=== PATIENT | male | born 1935 | race Caucasian/White ===

== ENCOUNTER 2016-08-26 19:26 | Inpatient (IN) | payer MEDICARE, OTHER ==
[~2016-08-26] VITALS: Ht 182.9 cm; Wt 91.8 kg
[~2016-08-26 19:26] MED LIST: ASPI-84; GEMF600T3; LSRT50T; PRV20T
[2016-08-26] MEDS ORDERED: HYDR25TA4 PO (19:40)
[2016-08-26] MEDS ORDERED: DOXA1TAB2 (19:40)
[2016-08-26] MEDS ORDERED: EZET10TA5 PO (19:40)
[2016-08-26] MEDS ORDERED: AMLO5TAB2 PO (19:40)
[2016-08-26] MEDS ORDERED: LEVO75TA6 PO (19:40)
[2016-08-26 19:48] LABS: BILIRUBIN,URINE NEGATIVE (NEGATIVE); KETONES,URINE NEGATIVE (NEGATIVE); LEUKOCYTE ESTERASE ,URINE NEGATIVE (NEGATIVE); NITRITE,URINE NEGATIVE (NEGATIVE); PH,URINE 6 (5-9); PROTEIN,URINE NEGATIVE (NEGATIVE); UROBILINOGEN,URINE NORMAL (NORMAL)
[2016-08-26 19:55] LABS: BASOPHILS % (AUTO) 0 % (0-10); EOSINOPHILS # (AUTO) 0.1 10^3/uL (0.0-0.3); EOSINOPHILS % (AUTO) 1 % (0-10); LYMPHOCYTES # (AUTO) 1.1 X 10^3 (1.0-4.0); LYMPHOCYTES % (AUTO) 6 % (12-44); MEAN CORPUSCULAR HEMOGLOBIN 18 PG (25-34); MEAN CORPUSCULAR HGB CONC 28 G/DL (32-36); MEAN CORPUSCULAR VOLUME 62 FL (80-99); MEAN PLATELET VOLUME 9.8 FL (7.4-10.4); MONOCYTES % (AUTO) 6 % (0-12); NEUTROPHILS # (AUTO) 15.1 X 10^3 (1.8-7.8); NEUTROPHILS % (AUTO) 87 % (42-75); PLATELET COUNT 260 10^3/uL (130-400); RED BLOOD COUNT 4.34 10^6/uL (4.35-5.85); RED CELL DISTRIBUTION WIDTH 19.2 % (10.0-14.5); WHITE BLOOD COUNT 17.3 10^3/uL (4.3-11.0)
[2016-08-26] MEDS ORDERED: NS 1000 ML IV BAG IV ONE (20:00)
[2016-08-26 20:05] LABS: PROTHROMBIN TIME PATIENT 13.3 SEC (12.2-14.7)
[2016-08-26 20:19] LABS: ALBUMIN 3.9 G/DL (3.2-4.5); BILIRUBIN,TOTAL 0.4 MG/DL (0.1-1.0); CREATININE SERUM 1.35 MG/DL (0.60-1.30); TOTAL PROTEIN 7.1 G/DL (6.4-8.2)
[2016-08-26 20:31] LABS: BAND NEUTROPHILS 0 %; BASOPHILS % (MANUAL) 0 %; EOSINOPHILS % (MANUAL) 2 %; HYPOCHROMASIA MARKED; LYMPHOCYTES % (MANUAL) 7 %; NEUTROPHILS % (MANUAL) 86 %
[2016-08-26 20:32] LABS: ANISOCYTOSIS MARKED; MICROCYTOSIS MARKED
[2016-08-26] MEDS ORDERED: IOHEXOL 350 MG/ML 100 ML (OMNIPAQUE 350) VIAL IV ONE (20:45)
[2016-08-26] MEDS ORDERED: NS 100 ML (IVPB) BAG IV ONE (20:45)
--- NOTE | 2016-08-26 20:53 | ED Abdominal Pain ---
General Chief Complaint: Abdominal/GI Problems Stated Complaint: CHILLS, AB PAIN Nursing Triage Note: CHILLS, ABD PAIN X2 HRS Sepsis Screen: No Definite Risk History of Present Illness Time Seen By Provider: 20:00 Initial Comments Patient complains of diffuse abdominal pain and cramping for the past several hours. He also has had shaking chills. He denies fevers. He denies dysuria. 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 Allergies and Home Medications Allergies Coded Allergies: No Known Drug Allergies (Unverified , 05/27/09) Home Medications Amlodipine Besylate 5 Mg Tablet, #30 (Reported) Aspirin 81 Mg Tablet., (Reported) Doxazosin Mesylate 1 Mg Tablet, #90 (Reported) Ezetimibe 10 Mg Tablet, #90 (Reported) Hydrochlorothiazide 25 Mg Tablet, #30 (Reported) Levothyroxine Sodium 75 Mcg Tablet, #90 (Reported) Losartan Potassium 50 Mg Tab, (Reported) Pravastatin Sodium 20 Mg Tablet, (Reported) Review of Systems Constitutional: chills Respiratory: No Symptoms Reported Cardiovascular: No Symptoms Reported Gastrointestinal: Abdominal Pain Musculoskeletal: no symptoms reported Skin: no symptoms reported All Other Systems Reviewed Negative Unless Noted: Yes Past Mdeexdy-Brcxon-Liskib Hx Patient Social History Alcohol Use: Denies Use Recreational Drug Use: No Smoking Status: Never a Smoker 2nd Hand Smoke Exposure: No Recent Foreign Travel: No Contact w/Someone Who Travel: No Recent Infectious Disease Expo: No Recent Hopitalizations: No Immunizations Up To Date Tetanus Booster (TDap): Unknown Seasonal Allergies Seasonal Allergies: No Respiratory Hx Respiratory Disorders: No Cardiovascular Hx Cardiac Disorders: Yes Cardiac Disorders: Coronary Artery Disease, Heart Attack, Hypertension Neurological Hx Neurological Disorders: No Reproductive System Hx Reproductive Disorders: No Genitourinary Hx Genitourinary Disorders: No Gastrointestinal Hx Gastrointestinal Disorders: Yes Gastrointestinal Disorders: Gall Bladder Disease Musculoskeletal Hx Musculoskeletal Disorders: No Endocrine Hx Endocrine Disorders: Yes HEENT HX ENT Disorders: No Psychosocial Hx Psychiatric Problems: No Blood Transfusions Hx Blood Disorders: No Reviewed Nursing Assessment Reviewed/Agree w Nursing PMH: Yes Physical Exam Vital Signs VS - Last 72 Hours, by Label 08/26/16 19:40 Temp 99.8 Pulse 74 Resp 16 B/P (MAP) 162/60 Pulse Ox 96 O2 Delivery Room Air Capillary Refill : Less Than 3 Seconds General Appearance: WD/WN, no apparent distress HEENT: PERRL/EOMI, pharynx normal Neck: supple Respiratory: lungs clear, normal breath sounds Cardiovascular: regular rate, rhythm, no edema Gastrointestinal: No distended, No guarding, No rebound, tenderness (tender throughout abdomen especially in the upper abdomen.) Extremities: normal inspection Neurologic/Psychiatric: alert, normal mood/affect Skin: normal color, warm/dry Focused Exam Lactic Acid Level Laboratory Tests Test 08/26/16 21:30 Progress/Results/Core Measures Results/Orders Lab Results Laboratory Tests Test 08/26/16 19:35 08/26/16 19:50 08/26/16 21:30 Range/Units Urine Color YELLOW Urine Clarity CLEAR Urine pH 6 5-9 Urine Specific [place] 1.015 L 1.016-1.022 Urine Protein NEGATIVE NEGATIVE Urine Glucose (UA) NEGATIVE NEGATIVE Urine Ketones NEGATIVE NEGATIVE Urine Nitrite NEGATIVE NEGATIVE Urine Bilirubin NEGATIVE NEGATIVE Urine Urobilinogen NORMAL NORMAL MG/DL Urine Leukocyte Esterase NEGATIVE NEGATIVE Urine RBC (Auto) NEGATIVE NEGATIVE Urine RBC NONE /HPF Urine WBC NONE /HPF Urine Squamous Epithelial Cells NONE /HPF Urine Crystals NONE /LPF Urine Bacteria NEGATIVE /HPF Urine Casts PRESENT /LPF Urine Hyaline Casts 5-10 H /LPF Urine Mucus NEGATIVE /LPF Urine Culture Indicated NO White Blood Count 17.3 H 4.3-11.0 10^3/uL Red Blood Count 4.34 L 4.35-5.85 10^6/uL Hemoglobin 7.7 L 13.3-17.7 G/DL Hematocrit 27 L 40-54 % Mean Corpuscular Volume 62 L 80-99 FL Mean Corpuscular Hemoglobin 18 L 25-34 PG Mean Corpuscular Hemoglobin Concent 28 L 32-36 G/DL Red Cell Distribution Width 19.2 H 10.0-14.5 % Platelet Count 260 130-400 10^3/uL Mean Platelet Volume 9.8 7.4-10.4 FL Neutrophils (%) (Auto) 87 H 42-75 % Lymphocytes (%) (Auto) 6 L 12-44 % Monocytes (%) (Auto) 6 0-12 % Eosinophils (%) (Auto) 1 0-10 % Basophils (%) (Auto) 0 0-10 % Neutrophils # (Auto) 15.1 H 1.8-7.8 X 10^3 Lymphocytes # (Auto) 1.1 1.0-4.0 X 10^3 Monocytes # (Auto) 1.0 0.0-1.0 X 10^3 Eosinophils # (Auto) 0.1 0.0-0.3 10^3/uL Basophils # (Auto) 0.0 0.0-0.1 10^3/uL Neutrophils % (Manual) 86 % Lymphocytes % (Manual) 7 % Monocytes % (Manual) 5 % Eosinophils % (Manual) 2 % Basophils % (Manual) 0 % Band Neutrophils 0 % Hypochromasia MARKED Anisocytosis MARKED Microcytosis MARKED Prothrombin Time 13.3 12.2-14.7 SEC INR Comment 1.0 0.8-1.4 Activated Partial Thromboplast Time 30 24-35 SEC Sodium Level 138 135-145 MMOL/L Potassium Level 4.0 3.6-5.0 MMOL/L Chloride Level 103 98-107 MMOL/L Carbon Dioxide Level 22 21-32 MMOL/L Anion Gap 13 5-14 MMOL/L Blood Urea Nitrogen 27 H 7-18 MG/DL Creatinine 1.35 H 0.60-1.30 MG/DL Estimat Glomerular Filtration Rate 51 BUN/Creatinine Ratio 20 Glucose Level 169 H 70-105 MG/DL Calcium Level 9.0 8.5-10.1 MG/DL Total Bilirubin 0.4 0.1-1.0 MG/DL Aspartate Amino Transf (AST/SGOT) 23 5-34 U/L Alanine Aminotransferase (ALT/SGPT) 17 0-55 U/L Alkaline Phosphatase 81 40-136 U/L Total Protein 7.1 6.4-8.2 G/DL Albumin 3.9 3.2-4.5 G/DL Lipase 59 8-78 U/L Labs were reviewed patient is markedly anemic My Orders Orders - JOSE SCHULZ MD Cbc With Automated Diff (08/26/16 19:31) Comprehensive Metabolic Panel (08/26/16 19:31) Lipase (08/26/16 19:31) Ua Culture If Indicated (08/26/16 19:31) Saline Lock/Iv-Start (08/26/16 19:38) Protime With Inr (08/26/16 19:50) Partial Thromboplastin Time (08/26/16 19:50) Ns Iv 1000 Ml (Sodium Chloride 0.9%) (08/26/16 20:00) Ct Abdomen/Pelvis W (08/26/16 19:51) Manual Differential (08/26/16 19:50) Iohexol Injection (Omnipaque 350 Mg/Ml 1 (08/26/16 20:45) Ns (Ivpb) (Sodium Chloride 0.9% Ivpb Bag (08/26/16 20:45) Ondansetron Injection (Zofran Injectio (08/26/16 21:00) Chest 1 View, Ap/Pa Only (08/26/16 21:20) Lactic Acid Analyzer (08/26/16 21:20) Blood Culture (08/26/16 21:20) Piperacillin Sodium/Tazobactam (Zosyn Vi (08/26/16 22:00) Medications Given in ED Current Medications Medications Dose Ordered Sig/Tejas Route Start Time Stop Time Status Last Admin Dose Admin Iohexol 100 ml ONCE ONCE IV 08/26/16 20:45 08/26/16 20:51 DC 08/26/16 20:45 100 ML Ondansetron HCl 8 mg ONCE ONCE IVP 08/26/16 21:00 08/26/16 21:01 DC 08/26/16 20:59 8 MG Sodium Chloride 100 ml ONCE ONCE IV 08/26/16 20:45 08/26/16 20:51 DC 08/26/16 20:45 80 ML Sodium Chloride 1,000 ml ONCE ONCE IV 08/26/16 20:00 08/26/16 20:01 DC 08/26/16 20:00 1,000 ML Vital Signs/I&O Vital Sign - Last 12Hours 08/26/16 19:40 Temp 99.8 Pulse 74 Resp 16 B/P (MAP) 162/60 Pulse Ox 96 O2 Delivery Room Air Blood Pressure Mean: 94 Diagnostic Imaging Comments Date of Exam:08/26/16 CT ABDOMEN/PELVIS W PROCEDURE: CT abdomen and pelvis with contrast. TECHNIQUE: Multiple contiguous axial images were obtained through the abdomen and pelvis after administration of intravenous contrast. INDICATION: Fever, nausea, shoulder, abdominal pain. Patient is having gallbladder attacks, history of appendectomy and hernia repair. CONTRAST: 100 mL Omnipaque 350 was administered. COMPARISON STUDIES: None FINDINGS: A left basilar infiltrate is present. No pleural effusion is present. A 14 mm gallstone is seen in the neck of the gallbladder. No duct dilatation is evident. Ultrasound could be helpful for further evaluation if suspected cholecystitis. The liver, spleen, pancreas, adrenal glands and kidneys appear normal. Mild arteriosclerosis is present. Diverticula are seen in the colon without inflammation. No ascites, free air or abnormal adenopathy is present. There is some fat herniating into the left inguinal canal without inflammation. Degenerative changes are present in the lumbar spine and sacroiliac joints. IMPRESSION: 1. There is a left basilar infiltrate. 2. Cholelithiasis. Consider ultrasound for further evaluation if the patient has symptoms of cholecystitis. 3. Diverticulosis without inflammation. 4. Degenerative changes are seen in the spine and sacroiliac joints. Date of Exam: 08/26/16 CHEST 1 VIEW, AP/PA ONLY INDICATION: Preoperative evaluation. COMPARISON STUDIES: None. FINDINGS: Frontal view of the chest demonstrates postoperative changes to the heart. The heart size is within normal limits. The vascularity is normal. There are no pleural effusions. The lungs are clear. IMPRESSION: There are no acute findings. Departure Communication Time/Spoke to Admitting Phy: 22:03 Communication I spoke with Dr. Smith who agrees to admit Impression Impression: Primary Impression: Pneumonia Additional Impressions: Cholelithiasis Abdominal pain Chills anemia Disposition: ADMITTED INPATIENT Condition: Stable Decision to Admit Reason: Admit from ER (General) Decision to Admit/Date: August 26, 2016 Time/Decision to Admit Time: 22:03 Departure-Patient Inst. Referrals: ANH CASTAÑEDA DO (PCP) Primary Care Physician JOSE SCHULZ MD August 26, 2016 20:53
[2016-08-26] MEDS ORDERED: ONDANSETRON 4 MG/2 ML (SDV) Z0FRAN IVP ONE (21:00)
--- NOTE | 2016-08-26 21:11 | Diagnostic Imaging Report ---
PROCEDURE: CT abdomen and pelvis with contrast. TECHNIQUE: Multiple contiguous axial images were obtained through the abdomen and pelvis after administration of intravenous contrast. INDICATION: Fever, nausea, shoulder, abdominal pain. Patient is having gallbladder attacks, history of appendectomy and hernia repair. CONTRAST: 100 mL Omnipaque 350 was administered. COMPARISON STUDIES: None FINDINGS: A left basilar infiltrate is present. No pleural effusion is present. A 14 mm gallstone is seen in the neck of the gallbladder. No duct dilatation is evident. Ultrasound could be helpful for further evaluation if suspected cholecystitis. The liver, spleen, pancreas, adrenal glands and kidneys appear normal. Mild arteriosclerosis is present. Diverticula are seen in the colon without inflammation. No ascites, free air or abnormal adenopathy is present. There is some fat herniating into the left inguinal canal without inflammation. Degenerative changes are present in the lumbar spine and sacroiliac joints. IMPRESSION: 1. There is a left basilar infiltrate. 2. Cholelithiasis. Consider ultrasound for further evaluation if the patient has symptoms of cholecystitis. 3. Diverticulosis without inflammation. 4. Degenerative changes are seen in the spine and sacroiliac joints. Dictated by: Dictated on workstation # [id number]
--- NOTE | 2016-08-26 21:42 | Diagnostic Imaging Report ---
INDICATION: Preoperative evaluation. COMPARISON STUDIES: None. FINDINGS: Frontal view of the chest demonstrates postoperative changes to the heart. The heart size is within normal limits. The vascularity is normal. There are no pleural effusions. The lungs are clear. IMPRESSION: There are no acute findings. Dictated by: Dictated on workstation # [id number]
[2016-08-26] MEDS ORDERED: PIPERACILLIN SODIUM/TAZOBACTAM 4.5 GM in NS (IVPB) 100 ML IV ONE (22:00)
[2016-08-26] MEDS ORDERED: ACETAMINOPHEN 500 MG TAB (TYLENOL) PO ONE (22:15)
[2016-08-26] MEDS ORDERED: ACETAMINOPHEN 325 MG TABLET/CAPLET (TYLENOL) PO PRN (23:45)
[2016-08-26] MEDS ORDERED: CATHETER FLUSH 10 ML SYR IV PRN (23:45)
[2016-08-26] MEDS: LEVOFLOXACIN 750 MG/D5W 150 ML PRE-MIX IV SCH (23:52)
[2016-08-27] VITALS (13 sets, daily range): BP systolic 110–145; BP diastolic 59–72
[2016-08-27] MEDS: CATHETER FLUSH 10 ML SYR IV SCH ×3 (04:32→20:02)
[2016-08-27] MEDS: PIPERACILLIN/TAZOBACTAM 4.5 GM/NS 100 ML IVPB IV SCH ×6 (04:32→20:02)
[2016-08-27 05:53] LABS: BASOPHILS % (AUTO) 0 % (0-10); EOSINOPHILS % (AUTO) 0 % (0-10); LYMPHOCYTES # (AUTO) 1.2 X 10^3 (1.0-4.0); LYMPHOCYTES % (AUTO) 5 % (12-44); MEAN CORPUSCULAR HEMOGLOBIN 17 PG (25-34); MEAN CORPUSCULAR HGB CONC 28 G/DL (32-36); MEAN CORPUSCULAR VOLUME 63 FL (80-99); MEAN PLATELET VOLUME 10.4 FL (7.4-10.4); MONOCYTES # (AUTO) 1.4 X 10^3 (0.0-1.0); MONOCYTES % (AUTO) 6 % (0-12); NEUTROPHILS % (AUTO) 89 % (42-75); PLATELET COUNT 213 10^3/uL (130-400); RED BLOOD COUNT 3.62 10^6/uL (4.35-5.85); RED CELL DISTRIBUTION WIDTH 19.2 % (10.0-14.5); WHITE BLOOD COUNT 22.6 10^3/uL (4.3-11.0)
[2016-08-27 06:21] LABS: ALBUMIN 3.3 G/DL (3.2-4.5); BILIRUBIN,TOTAL 0.5 MG/DL (0.1-1.0); CALCIUM 8.4 MG/DL (8.5-10.1); CREATININE SERUM 1.36 MG/DL (0.60-1.30); POTASSIUM 3.8 MMOL/L (3.6-5.0); TOTAL PROTEIN 5.9 G/DL (6.4-8.2)
[2016-08-27 06:43] LABS: ANISOCYTOSIS MODERATE; BAND NEUTROPHILS 1 %; BASOPHILS % (MANUAL) 0 %; EOSINOPHILS % (MANUAL) 0 %; HYPOCHROMASIA MARKED; LYMPHOCYTES % (MANUAL) 4 %; MICROCYTOSIS SLIGHT; NEUTROPHILS % (MANUAL) 90 %; POIKILOCYTOSIS SLIGHT; POLYCHROMASIA SLIGHT; TEAR DROP CELLS SLIGHT
[2016-08-27 06:44] LABS: ROULEAUX SLIGHT
--- NOTE | 2016-08-27 08:59 | Consultation ---
History of Present Illness History of Present Illness Patient Consulted On(lyndsey/time) 08/27/16 08:54 Reason for Visit: right upper quadrant abdominal pain and anemia History of Present Illness gentleman with a known history of symptomatic gallstone admitted with biliary colic. Calcified stone on CT scan. Stable coronary artery disease following revascularization many years ago. Anemic with a hemoglobin of over 6 g with a history of adenomatous polyps. No family history of colon cancer. Allergies and Home Medications Allergies Coded Allergies: No Known Drug Allergies (Unverified , 05/27/09) Home Medications Amlodipine Besylate 5 Mg Tablet, #30 (Reported) Aspirin 81 Mg Tablet.dr, (Reported) Doxazosin Mesylate 1 Mg Tablet, #90 (Reported) Ezetimibe 10 Mg Tablet, #90 (Reported) Hydrochlorothiazide 25 Mg Tablet, #30 (Reported) Levothyroxine Sodium 75 Mcg Tablet, #90 (Reported) Losartan Potassium 50 Mg Tab, (Reported) Pravastatin Sodium 20 Mg Tablet, (Reported) Past Sqneies-Hutbow-Xfdqqm Hx Patient Social History Alcohol Use: Rarely Uses Recreational Drug Use: No Smoking Status: Former Smoker Type Used: Cigarettes 2nd Hand Smoke Exposure: No Recent Foreign Travel: No Contact w/Someone Who Travel: No Recent Infectious Disease Expo: No Recent Hopitalizations: No Physical Abuse Screen: No Sexual Abuse: No Immunizations Up To Date Tetanus Booster (TDap): Unknown PED Vaccines UTD: No Date of Pneumonia Vaccine: Apr 01, 2016 Seasonal Allergies Seasonal Allergies: Yes Surgeries Surgeries: CABG Respiratory Hx Respiratory Disorders: No Cardiovascular Hx Cardiac Disorders: Yes Cardiac Disorders: Coronary Artery Disease, Heart Attack, Hypertension Neurological Hx Neurological Disorders: No Reproductive System Hx Reproductive Disorders: No Genitourinary Hx Genitourinary Disorders: No Gastrointestinal Hx Gastrointestinal Disorders: Yes Gastrointestinal Disorders: Diverticulosis, Polyps, Gall Bladder Disease Musculoskeletal Hx Musculoskeletal Disorders: No Endocrine Hx Endocrine Disorders: Yes HEENT HX ENT Disorders: No Psychosocial Hx Psychiatric Problems: No Blood Transfusions Hx Blood Disorders: No Adverse Reaction to a Blood Tr: No Reviewed Nursing Assessment Reviewed/Agree w Nursing PMH: Yes Family Medical History Family Medial History: Alcoholism 19 FATHER Arthritis 19 MOTHER Asthma 19 MOTHER Hypertension 19 FATHER Kidney disease 19 FATHER Visual disorder G8 BROTHER G8 SISTER Review of Systems-General Constitutional: malaise EENTM: no symptoms reported Respiratory: cough Cardiovascular: no symptoms reported Gastrointestinal: RUQ, abdominal pain (RUQ) Genitourinary: no symptoms reported Musculoskeletal: no symptoms reported Skin: no symptoms reported Psychiatric/Neurological: No Symptoms Reported Physical Exam-General Problems Physical Exam Vital Signs Vital Sign - Last 12Hours 08/26/16 08/26/16 19:40 22:35 Temp 99.8 Pulse 74 Resp 16 B/P (MAP) 162/60 Pulse Ox 96 O2 Delivery Room Air O2 Flow Rate 2.00 Capillary Refill : Less Than 3 Seconds General Appearance: no apparent distress HEENT: normal ENT inspection Neck: supple, normal inspection Respiratory: lungs clear Cardiovascular: regular rate, rhythm Gastrointestinal: non tender, soft Rectal: deferred Extremities: non-tender, normal inspection Neurologic/Psychiatric: alert, oriented x 3 Skin: warm/dry Lymphatic: no adenopathy Assessment/Plan Assessment/Plan Admission Diagnosis/Plan gentleman with symptomatically gallstone. Gallbladder ultrasound will be requested for tomorrow morning. Anemia with a history of adenomatous polyps. Bowel preparation to start today. Colonoscopy planned for tomorrow afternoon. Robotic-assisted cholecystectomy on Saturday the . All the details reviewed and he is in agreement Clinical Quality Measures DVT/VTE Risk/Contraindication: VTE Present on Admission: No Risk Factor Score Per Nursin RFS Level Per Nursing on Admit: 2=Moderate NEETA MARTINEZ MD August 27, 2016 8:59 am
[2016-08-27] MEDS: MAGNESIUM CITRATE 300 ML BTL PO NR ×2 (09:32→20:18)
[2016-08-27] MEDS ORDERED: NS IV 500 ML 500 ML ONE (10:11)
--- NOTE | 2016-08-27 10:27 | History & Physical-Hospitalist ---
HPI History of Present Illness: HPI/Chief Complaint CC: Abdominal pain with severe anemia and early LLL Pneumonia HPI: This is an 80-year-old white male clinic patient of Dr. Hall and cardiology clinic Dr. Fagan the presents to the emergency room with complaints of abdominal pain generalized in location. He reports these been not feeling well for the past several days and laying around in bed for the past 2 days that worsened to the point of coming to the ER last night and found to have a large gallstone with early inflammation/infection of the gallbladder in addition to severe anemia with hemoglobin is 7.7 that decreased to 6.3 today. he is currently receiving 2 units of packed red blood cell transfusion and Dr. Hirsch is seen him in preparation for EGD and colonoscopy and gallbladder evaluation for cholecystectomy in the near future. Chest x-ray did not identify the left lower lobe pneumonia and was on CT scan so he was placed empirically on Zosyn and Levaquin. Patient reports some mild abdominal pain but he is very against all pain medication and he wishes and not use it currently. He is in the mist of colon prep for colonoscopy. He reports that he had his labs checked 2 weeks ago and everything was normal and they did not mention any details regarding anemia at that time he's never had a blood transfusion or GI bleed or any evidence of melena or hematochezia at home. He does take a regular aspirin at home 325 mg dose and has since his heart surgery per Dr. Carlton. Source: patient Exam Limitations: no limitations Date Seen 08/27/16 Attending Physician Erendira Cooper DO PCP Fox Hall DO Referring Physician Date of Admission August 26, 2016 at 21:30 Home Medications & Allergies Home Medications Reviewed patient Home Medication Reconciliation Form Allergies Allergies Coded Allergies No Known Drug Allergies (Unverified05/27/09) Past Vbeihmy-Wmqkug-Okhurc Hx Patient Social History Marrital Status: Employed/Student: retired Alcohol Use: Rarely Uses Recreational Drug Use: No Smoking Status: Former Smoker Type Used: Cigarettes 2nd Hand Smoke Exposure: No Physical Abuse Screen: No Sexual Abuse: No Recent Foreign Travel: No Contact w/other who traveled: No Recent Hopitalizations: No Recent Infectious Disease Expo: No Immunizations Up To Date Tetanus Booster (TDap): Unknown Date of Pneumonia Vaccine: Apr 01, 2016 Seasonal Allergies Seasonal Allergies: Yes Surgeries HX Surgeries: Yes Surgeries: CABG (Dr Carlton) Respiratory Hx Respiratory Disorders: No Cardiovascular Hx Cardiovascular Disorders: Yes Cardiac Disorders: Coronary Artery Disease, Heart Attack, Hypertension Neurological Hx Neurological Disorders: No Reproductive System Hx Reproductive Disorders: No Genitourinary Hx Genitourinary Disorders: No Gastrointestinal Hx Gastrointestinal Disorders: Yes Gastrointestinal Disorders: Diverticulosis, Polyps, Gall Bladder Disease Musculoskeletal Hx Musculoskeletal Disorders: No Endocrine Hx Endocrine Disorders: Yes Endocrine Disorders: Hypothyroidsim HEENT HX ENT Disorders: No Cancer Hx Cancer: No Psychosocial Hx Psychiatric Problems: No Blood Transfusions Hx Blood Disorders: No Adverse Reaction to a Blood Tr: No Reviewed Nursing Assessment Reviewed/Agree w Nursing PMH: Yes Family Medical History Family Hx: Alcoholism 19 FATHER Arthritis 19 MOTHER Asthma 19 MOTHER Hypertension 19 FATHER Kidney disease 19 FATHER Visual disorder G8 BROTHER G8 SISTER Review of Systems Constitutional: see HPI, chills, dizziness, fever, malaise, weakness, weight loss EENTM: no symptoms reported Respiratory: no symptoms reported Cardiovascular: no symptoms reported Gastrointestinal: abdominal pain (RLQ), heartburn, loss of appetite, nausea Genitourinary: no symptoms reported Musculoskeletal: back pain Skin: no symptoms reported Psychiatric/Neurological: No Symptoms Reported All Other Systems Reviewed Negative Unless Noted: Yes Physical Exam Physical Exam Vital Signs Vital Sign - Last 12Hours 08/26/16 08/26/16 19:40 22:35 Temp 99.8 Pulse 74 Resp 16 B/P (MAP) 162/60 Pulse Ox 96 O2 Delivery Room Air O2 Flow Rate 2.00 Capillary Refill : Less Than 3 Seconds General Appearance: No Apparent Distress, WD/WN, Chronically ill, Obese Eyes: Bilateral Eye Normal Inspection, Bilateral Eye PERRL HEENT: PERRL/EOMI, Normal ENT Inspection, Pharynx Normal Neck: Full Range of Motion, Normal Inspection, Non Tender, Supple, Carotid Bruit Respiratory: Chest Non Tender, Lungs Clear, Normal Breath Sounds, No Accessory Muscle Use, No Respiratory Distress Cardiovascular: Regular Rate, Rhythm, No Edema, No Gallop, No JVD, No Murmur, Normal Peripheral Pulses Gastrointestinal: Normal Bowel Sounds, No Organomegaly, No Pulsatile Mass, Distended, Tenderness Back: Normal Inspection, No CVA Tenderness, No Vertebral Tenderness Extremity: Normal Capillary Refill, Normal Inspection, Normal Range of Motion, Non Tender, No Calf Tenderness, No Pedal Edema Neurologic/Psychiatric: Alert, Oriented x3, No Motor/Sensory Deficits, Normal Mood/Affect Skin: Normal Color, Warm/Dry Lymphatic: No Adenopathy Results Results/Procedures Lab Laboratory Tests 08/26/16 19:50 08/27/16 05:25 Assessment/Plan Admission Diagnosis Assessment: Acute abdominal pain with severe anemia requiring transfusions of blood with no history of GI bleed but maintain on aspirin along with large gallstone with early cholecystitis in need of cholecystectomy along with endoscopies to evaluate source of bleeding Coronary artery disease previous bypass surgery by Dr. Carlton and sees Dr. Fagan his patient coordinator Hyperlipidemia Aneurysm monitor closely by Dr. 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 Hirsch expertise Colon prep to be completed Transfuse 2 units of packed red blood cells and added on ferritin and iron to evaluate chronicity of the blood loss source and empirically placed on Venofer iron infusions Consult cardiology for close monitoring due to heart disease and in need of surgery for risk stratification purposes Hold most of home medicines since blood pressure is slightly low Clinical Quality Measures DVT/VTE Risk/Contraindication: VTE Present on Admission: No Risk Factor Score Per Nursin RFS Level Per Nursing on Admit: 2=Moderate ERENDIRA COOPER DO August 27, 2016 10:27
[2016-08-27] MEDS ORDERED: FUROSEMIDE 40 MG/4 ML INJ (LASIX) IVP ONE (12:00)
--- NOTE | 2016-08-27 14:02 | Consultation-Cardiology ---
HPI-Cardiology Cardiology Consultation: Date of Consultation 08/27/16 Date of Admission Attending Physician Erendira Smith DO Admitting Physician Fox Hall DO Consulting Physician Jan MORFIN MD HPI: Chief Complaint: preop cardiovascular risk assessment this is a pleasant 80-year-old gentleman who follows with a etymology professor in [facility] in [place]. He has history of CABG with 3 grafts. He had cardiac workup 3 months ago which according to the patient included echocardiogram and nuclear stress test. According to him the stress test was fine and his etymology professor did not say anything about the echocardiogram. He presents with abdominal pain and has been found to have gallstone cholecystitis and the plan is to undergo cholecystectomy on Saturday. There is also concern of anemia/bleeding therefore he is undergoing endoscopy tomorrow. The patient denies any cardiac symptoms including chest pain or shortness of breath. He has good functional capacity over 4 METs. Review of Systems-Cardiology Review of Systems Constitutional: No As described under HPI, No no symptoms reported, No chills, No fever, No lightheadedness, No malaise, No tiredness, No weight loss, No weight gain, No other Eyes: No As described under HPI, No no symptoms reported, No blindness, No blurred vision, No contact lenses, No drainage, No decreased acuity, No foreign body sensation, No glasses, No inflammation, No pain, No photophobia, No previous injury, No shadows, No tunnel vision, No other, No vision change Ears/Nose/Throat: No As described under HPI, No no symptoms reported, No chronic hearing loss, No epistaxis, No ear discharge, No ear pain, No loose teeth, No mouth pain, No mouth swelling, No nasal drainage, No nose pain, No recent hearing loss, No throat pain, No throat swelling, No ulcerations, No other Respiratory: No no symptoms reported, No As described under HPI, No cough, No orthopnea, No shortness of breath, No SOB with excertion, No SOB at rest, No stridor, No wheezing, No other Cardiovascular: No no symptoms reported, No As described under HPI, No chest pain, No edema, No irregular heart rate, No lightheadedness, No palpitations, No syncope, No other Gastrointestinal: No no symptoms reported, No As described under HPI, No abdomen distended, abdominal pain, No blood streaked bowels, No constipation, No diarrhea, No difficulty swallowing, No nausea, No poor appetite, No poor fluid intake, No rectal bleeding, No vomiting, No other, No nausea/vomiting/ diarrhea, No stool coloration changes Genitourinary: No no symptoms reported, No As described under HPI, No burning, No dysuria, No discharge, No frequency, No flank pain, No hematuria, No incontinence, No pain, No urgency, No other, No urine frequency changes, No urine coloration changes Musculoskeletal: No no symptoms reported, No As describe under HPI, No back pain, No gout, No joint pain, No joint swelling, No muscle pain, No muscle stiffness, No neck pain, No other Skin: No no symptoms reported, No As described under HPI, No change in color, No change in hair/nails, No dryness, No lesions, No lumps, No rash, No other, No skin related problems, No ulcerations, No rash on exposed areas, No ulcerations on exposed areas Psychiatric/Neurological: No As described under HPI, No anxiety, No depression , No emotional problems, No focal weakness, No headache, No no symptoms reported , No numbness, No other, No pre-existing deficit, No seizure, No syncope, No tingling, No tremors, No weakness All Other Systems Reviewed Negative Unless Noted: Yes KJN-Odtzil-Ynjwwt Hx Patient Social History Marrital Status: Employed/Student: retired Alcohol Use: Rarely Uses Recreational Drug Use: No Smoking Status: Former Smoker Type Used: Cigarettes 2nd Hand Smoke Exposure: No Recent Foreign Travel: No Recent Infectious Disease Expo: No Hospitalization with Isolation: Denies Physical Abuse Screen: No Sexual Abuse: No Immunizations Up To Date Tetanus Booster (TDap): Unknown Date of Pneumonia Vaccine: Apr 01, 2016 Past Medical History PMH As described under Assessment. Family Medical History Family History: Alcoholism 19 FATHER Arthritis 19 MOTHER Asthma 19 MOTHER Hypertension 19 FATHER Kidney disease 19 FATHER Visual disorder G8 BROTHER G8 SISTER Allergies and Home Medications Allergies Coded Allergies: No Known Drug Allergies (Unverified , 05/27/09) Home Medications Amlodipine Besylate 5 Mg Tablet, #30 (Reported) Aspirin 81 Mg Tablet., (Reported) Doxazosin Mesylate 1 Mg Tablet, #90 (Reported) Ezetimibe 10 Mg Tablet, #90 (Reported) Hydrochlorothiazide 25 Mg Tablet, #30 (Reported) Levothyroxine Sodium 75 Mcg Tablet, #90 (Reported) Losartan Potassium 50 Mg Tab, (Reported) Pravastatin Sodium 20 Mg Tablet, (Reported) Physical Exam-Cardiology Physical Exam Vital Signs/I&O Vital Sign - Last 12Hours 08/27/16 08/27/16 08/27/16 08/27/16 04:20 07:00 07:54 10:30 Temp 98.2 97.8 98.0 Pulse 79 70 57 64 Resp 20 20 18 B/P (MAP) 127/59 131/60 144/65 Pulse Ox 93 90 93 08/27/16 08/27/16 08/27/16 08/27/16 10:45 11:39 13:00 13:16 Temp 98.3 98.8 98.2 Pulse 65 59 58 62 Resp 18 20 18 B/P (MAP) 136/63 141/62 140/65 Pulse Ox 94 93 Intake and Output 08/27/16 00:00 Intake Total 1100 ml Balance 1100 ml Capillary Refill : Less Than 3 Seconds Constitutional: No appears stated age, No AAO x 3, No apparent distress, No PERRL, No well-developed, No well-nourished, No other HEENT: No PERRL, No normal ENT inspection, No TMs normal, No pharynx normal, No scleral icterus (R), No scleral icterus (L), No pale conjunctivae (R), No pale conjunctivae (L), No photophobia, No TM abnormal (R), No TM abnormal (L), No pharyngeal erythema, No tonsillar exudate, No other, No discharge, No EOMI, No hearing is well preserved, No hard of hearing, No oral hygience is good, No ulceration, No xanthelasmas are seen Neck: No non-tender, No full range of motion, No supple, No normal inspection, No carotid bruit, No limited range of motion, No lymphadenopathy (R), No lymphadenopathy (L), No tender lateral, No tender midline, No thyromegaly, No other, No carotid pulses are 2 + bilaterally, No with good upstrokes Respiratory: chest expansion is symmetric, chest is bilaterally symmetric, lungs clear to percussion, lungs clear to auscultation Cardiovascular: regular rate-rhythm, No irregularly irregular, No extra beats, No parasternal heave is noted, No JVD, No edema, No bradycardia, No tachycardia , No point of maximal impulse, No cardiac thrills are palpable, S1 and S2, No gallop/S3, No gallop/S4, No diastolic murmur, No systolic murmur, No friction rub, No click, No other Gastrointestinal: No tender, No soft, No round, No distended, No pulsatile mass , No organomegaly, No guarding, No rebound, tenderness, No hernia, No mass, No audible bowel sounds, No abnormal bowel sounds, No abdominal bruits, No spleenomegaly, No other Rectal: deferred Genital/Rectal: No normal genital exam, No normal rectal exam, No heme negative stool, No normal rectal tone, No normal vaginal exam, No blood at urethral meatus, No decreased rectal tone, No heme positive stool, No tenderness , No other Extremities: No normal range of motion, No non-tender, No normal inspection, No pedal edema, No calf tenderness, No normal capillary refill, No pelvis stable , No calf tenderness, No inflammation, No pedal edema, No slow capillary refill , No swelling, No other, No abrasion, No clubbing, No cyanosis, No ecchymosis, No laceration, No no lower extremity edema bilateral, No significant edema, No tenderness, No wound Neurologic/Psychiatric: No director community health nursing II-XII nml as tested, No no motor/sensory deficits, No alert, No normal mood/affect, No oriented x 3, No abnormal cerebellar tests, No abnormal director community health nursing II-XII, No abnormal gait, No aphasia, No EOM palsy, No facial droop, No motor weakness, No sensory deficit, No depressed affect, No disoriented x 3, No other, No grossly intact, No power is 5/5 both on sides Skin: No normal color, No warm/dry, No cyanosis, No cool, No diaphoresis, No damp, No ecchymosis, No jaundice, No mottled, No pallor, No rash, No tattoos/ piercings, No ulcerations, No rash on exposed areas, No ulcerations on exposed areas, No other Lymphatic: no adenopathy Data Review Labs Laboratory Tests 08/26/16 19:35: Urine Color YELLOW, Urine Clarity CLEAR, Urine pH 6, Urine Specific [place] 1.015L, Urine Protein NEGATIVE, Urine Glucose (UA) NEGATIVE, Urine Ketones NEGATIVE, Urine Nitrite NEGATIVE, Urine Bilirubin NEGATIVE, Urine Urobilinogen NORMAL, Urine Leukocyte Esterase NEGATIVE, Urine RBC (Auto) NEGATIVE, Urine RBC NONE, Urine WBC NONE, Urine Squamous Epithelial Cells NONE, Urine Crystals NONE , Urine Bacteria NEGATIVE, Urine Casts PRESENT, Urine Hyaline Casts 5-10H, Urine Mucus NEGATIVE, Urine Culture Indicated NO 08/26/16 19:50: White Blood Count 17.3H, Red Blood Count 4.34L, Hemoglobin 7.7L, Hematocrit 27L , Mean Corpuscular Volume 62L, Mean Corpuscular Hemoglobin 18L, Mean Corpuscular Hemoglobin Concent 28L, Red Cell Distribution Width 19.2H, Platelet Count 260, Mean Platelet Volume 9.8, Neutrophils (%) (Auto) 87H, Lymphocytes (% ) (Auto) 6L, Monocytes (%) (Auto) 6, Eosinophils (%) (Auto) 1, Basophils (%) ( Auto) 0, Neutrophils # (Auto) 15.1H, Lymphocytes # (Auto) 1.1, Monocytes # (Auto ) 1.0, Eosinophils # (Auto) 0.1, Basophils # (Auto) 0.0, Neutrophils % (Manual) 86, Lymphocytes % (Manual) 7, Monocytes % (Manual) 5, Eosinophils % (Manual) 2, Basophils % (Manual) 0, Band Neutrophils 0, Hypochromasia MARKED, Anisocytosis MARKED, Microcytosis MARKED, Prothrombin Time 13.3, INR Comment 1.0, Activated Partial Thromboplast Time 30, Sodium Level 138, Potassium Level 4.0, Chloride Level 103, Carbon Dioxide Level 22, Anion Gap 13, Blood Urea Nitrogen 27H, Creatinine 1.35H, Estimat Glomerular Filtration Rate 51, BUN/Creatinine Ratio 20 , Glucose Level 169H, Calcium Level 9.0, Total Bilirubin 0.4, Aspartate Amino Transf (AST/SGOT) 23, Alanine Aminotransferase (ALT/SGPT) 17, Alkaline Phosphatase 81, Total Protein 7.1, Albumin 3.9, Lipase 59 08/26/16 21:30: Lactic Acid Level 1.01 08/27/16 05:25: White Blood Count 22.6H, Red Blood Count 3.62L, Hemoglobin 6.3*L, Hematocrit 23L , Mean Corpuscular Volume 63L, Mean Corpuscular Hemoglobin 17L, Mean Corpuscular Hemoglobin Concent 28L, Red Cell Distribution Width 19.2H, Platelet Count 213, Mean Platelet Volume 10.4, Neutrophils (%) (Auto) 89H, Lymphocytes (% ) (Auto) 5L, Monocytes (%) (Auto) 6, Eosinophils (%) (Auto) 0, Basophils (%) ( Auto) 0, Neutrophils # (Auto) 20.0H, Lymphocytes # (Auto) 1.2, Monocytes # (Auto ) 1.4H, Eosinophils # (Auto) 0.0, Basophils # (Auto) 0.0, Neutrophils % (Manual ) 90, Lymphocytes % (Manual) 4, Monocytes % (Manual) 5, Eosinophils % (Manual) 0 , Basophils % (Manual) 0, Band Neutrophils 1, Hypochromasia MARKED, Anisocytosis MODERATE, Microcytosis SLIGHT, Sodium Level 138, Potassium Level 3.8, Chloride Level 108H, Carbon Dioxide Level 21, Anion Gap 9, Blood Urea Nitrogen 27H, Creatinine 1.36H, Estimat Glomerular Filtration Rate 50, BUN/ Creatinine Ratio 20, Glucose Level 132H, Calcium Level 8.4L, Total Bilirubin 0.5 , Aspartate Amino Transf (AST/SGOT) 27, Alanine Aminotransferase (ALT/SGPT) 19, Alkaline Phosphatase 62, Total Protein 5.9L, Albumin 3.3, Polychromasia SLIGHT, Poikilocytosis SLIGHT, Macrocytosis MODERATE, Tear Drop Cells SLIGHT, Elliptocytes SLIGHT, Rouleau SLIGHT A/P-Cardiology Assessment/Admission Diagnosis gallstone cholecystitis, Anemia, History of coronary artery disease, status post CABG, murmur Plan the patient has gallstone cholecystitis and the plan is to perform cholecystectomy on Saturday. He also has anemia and the plan is to perform endoscopy tomorrow. The patient denies any cardiac symptoms and has good functional capacity. However he does have history of CAD and CABG. According to the patient he had workup done 3 months ago with his outpatient etymology professor at [facility]. Which included a stress test which according to the patient was negative. On auscultation there is a basal murmur which is likely aortic stenosis/aortic sclerosis. I have requested that all records be requested from [facility]. If an echocardiogram is not done with the previous investigation then we should request an echocardiogram to be done tomorrow. Patient will continue outpatient medications for coronary artery disease including aspirin, hydrochlorothiazide, ezetimibe, statin. Patient will be considered at intermediate risk for major perioperative cardiovascular events undergoing a moderate risk noncardiac surgery. There is no significant cardiac contraindication to the above-mentioned procedures. We will continue to follow. Thank you for your consultation. Please call me if you have any questions. Romina Morfin MD, FACP, FACC, [facility] [place], FHRS, CCDS Interventional Cardiology Cardiac Electrophysiology Vascular Medicine and Endovascular Interventions Clinical Quality Measures DVT/VTE Risk/Contraindication: VTE Present on Admission: No Risk Factor Score Per Nursin RFS Level Per Nursing on Admit: 2=Moderate Jan MORFIN MD August 27, 2016 2:02 pm
[2016-08-27] MEDS: IRON SUCROSE INJECTION 200 MG in NS (IVPB) 100 ML IV SCH (14:32)
[2016-08-27] MEDS ORDERED: MAGNESIUM CITRATE 300 ML BTL PO ONE (20:00)
[2016-08-28] MEDS: PIPERACILLIN/TAZOBACTAM 4.5 GM/NS 100 ML IVPB IV SCH ×8 (03:55→23:46)
[2016-08-28 04:02] VITALS: BP 152/68
[2016-08-28] MEDS: LEVOTHYROXINE 75 MCG (LEVOTHROID) TABLET PO SCH (05:40)
[2016-08-28] MEDS: CATHETER FLUSH 10 ML SYR IV SCH ×3 (05:40→21:46)
[2016-08-28 05:57] LABS: BASOPHILS % (AUTO) 0 % (0-10); EOSINOPHILS # (AUTO) 0.2 10^3/uL (0.0-0.3); EOSINOPHILS % (AUTO) 1 % (0-10); LYMPHOCYTES # (AUTO) 1.1 X 10^3 (1.0-4.0); LYMPHOCYTES % (AUTO) 7 % (12-44); MEAN CORPUSCULAR HEMOGLOBIN 19 PG (25-34); MEAN CORPUSCULAR HGB CONC 29 G/DL (32-36); MEAN CORPUSCULAR VOLUME 66 FL (80-99); MEAN PLATELET VOLUME 10.1 FL (7.4-10.4); MONOCYTES % (AUTO) 6 % (0-12); NEUTROPHILS # (AUTO) 14.5 X 10^3 (1.8-7.8); NEUTROPHILS % (AUTO) 86 % (42-75); PLATELET COUNT 203 10^3/uL (130-400); RED BLOOD COUNT 4.25 10^6/uL (4.35-5.85); RED CELL DISTRIBUTION WIDTH 21.3 % (10.0-14.5); WHITE BLOOD COUNT 16.8 10^3/uL (4.3-11.0)
[2016-08-28 06:30] LABS: ALBUMIN 3.3 G/DL (3.2-4.5); BILIRUBIN,TOTAL 0.9 MG/DL (0.1-1.0); CALCIUM 8.6 MG/DL (8.5-10.1); CREATININE SERUM 1.35 MG/DL (0.60-1.30); POTASSIUM 3.6 MMOL/L (3.6-5.0); TOTAL PROTEIN 6.3 G/DL (6.4-8.2)
[2016-08-28 07:23] VITALS: BP 131/63
[2016-08-28] MEDS ORDERED: MAGNESIUM CITRATE 300 ML BTL PO NR (09:25)
--- NOTE | 2016-08-28 10:03 | Diagnostic Imaging Report ---
PROCEDURE: US Gallbladder. TECHNIQUE: Multiple real-time grayscale images were obtained over the right upper quadrant in various projections. INDICATION: Gallstone. FINDINGS: The visualized portions of the pancreas appear unremarkable. The liver is fairly homogeneous with no focal lesion. Hepatopetal flow in the portal vein is demonstrated. There is a 1.9 cm mobile stone seen within the gallbladder. The gallbladder wall is not thickened at 2 mm. No pericholecystic fluid is seen. The sonographic Gregorio sign is reportedly negative. No fluid collection in the upper right quadrant is seen. The CBD is obscured by bowel gas. The right kidney is 12 cm in length with no hydronephrosis or focal lesion. IMPRESSION: A 1.9 cm gallstone is seen. No evidence of acute cholecystitis. Dictated by: Dictated on workstation # [id number]
[2016-08-28] MEDS ORDERED: VIT1CAPS5 PO (10:05)
[2016-08-28] MEDS ORDERED: ASPI-808 PO (10:05)
[2016-08-28] MEDS ORDERED: LOSA100T28 PO (10:05)
[2016-08-28] MEDS ORDERED: PRAV20TA3 PO (10:05)
[2016-08-28] MEDS ORDERED: MULT1TAB69 PO (10:05)
[2016-08-28 11:54] VITALS: BP 142/63
[2016-08-28] MEDS ORDERED: MIDAZOLAM 2 MG/2 ML (VERSED) VIAL ONE ×3 (14:06)
[2016-08-28] MEDS ORDERED: fentaNYL INJECTION 100 MCG/2 ML AMP ONE (14:06)
[2016-08-28] MEDS ORDERED: NS IV 500 ML 500 ML ONE (14:07)
[2016-08-28] MEDS: fentaNYL INJECTION 100 MCG/2 ML AMP IVP PRN ×2 (14:10→14:15)
[2016-08-28] MEDS: MIDAZOLAM 2 MG/2 ML (VERSED) VIAL IVP PRN ×2 (14:11→14:16)
--- NOTE | 2016-08-28 14:13 | Progress Note-Hospitalist ---
Standard Progress Note Progress Notes/Assess & Plan Date Seen 08/28/16 Diagnosis Assessment: Acute abdominal pain with severe anemia requiring transfusions of blood with no history of GI bleed but maintain on aspirin along with large gallstone with early cholecystitis in need of cholecystectomy along with endoscopies to evaluate source of bleeding Coronary artery disease previous bypass surgery by Dr. Carlton and sees Dr. Fagan his victims advocate clerk/specialist Hyperlipidemia Aneurysm monitor closely by Dr. Fagan Hypothyroidism CRI creat 1.3 Assess & Plan/Chief Complaint The patient is a an 80-year-old white male. He presented to the emergency room with complaints of acute onset of abdominal pain. Apparently it was known that he had gallstones. In addition it was his scheduled time for repeat colonoscopy. On presentation to the emergency room in addition to being acutely tender over the gallbladder he was found to have a hemoglobin of 6.3. His white count at presentation was 17.3 and tae as high as 22.6. He states that he is feeling better at this time. At my visit he was preparing to go to the procedure lab for a colonoscopy. It is then planned that he will have a cholecystectomy tomorrow. Physical exam: he is a rather pale and hearty 80-year-old white male. Lungs are clear to auscultation. CV is regular without murmur. Abdomen is soft and not tender to this palpation. Impression: Severe anemia etiology unknown 2.acute cholecystitis with evidence of infection. Plan: Colonoscopy today and cholecystectomy tomorrow. Labs Laboratory Tests 08/26/16 19:50 08/27/16 05:25 08/28/16 05:25 RAKEL VAIL MD August 28, 2016 14:13
[2016-08-28] MEDS ORDERED: NS IV 500 ML 500 ML IV PRN (14:45)
--- NOTE | 2016-08-28 14:46 | Conscious Sedation/ASA ---
Conscious Sedation Pre-Proced Time Reviewed: 09:14 ASA Class: 2 Airway Mallampati Classification: ([place] appropriate class) I. II. III, IV Lungs Heart ASA score ASA 1: a normal healthy patient ASA 2: a patient with a mild systemic disease (mid diabetes, controlled hypertension, obesity ASA 3: a patient with a severe systemic disease that limits activity (angina , COPD, prior Myocardial infarction) ASA 4: a patient with an incapacitating disease that is a constant threat to life (CHF, renal failure) ASA 5: a moribund patient not expected to survive 24 hrs. (ruptured aneurysm) ASA 6: a declared brain patient whose organs are being harvested. For emergent operations, add the letter E after the classification Grade 1 Sedation Plan: Discussed options with patient/fam Note The patient is an appropriate candidate to undergo the planned procedure, sedation, and anesthesia. The patient immediately re-assessed prior to indication. NEETA MARTINEZ MD August 28, 2016 2:46 pm
--- NOTE | 2016-08-28 14:47 | Endoscopy Procedure Report ---
Endoscopy Report Date: August 28, 2016 Preoperative Diagnosis: ppersonal history of polyps. Anemia Study Performed: Colonoscopy Procedure Instrument: Colonoscope Endo Procedure/Findings Findings 1.: Polyp, Diverticulosis Recommendations: Recommendations: 1.: Colonscopy in 5 years Copy Copies To 1: ANH CASTAÑEDA DO Copies To 2: NAHID COOPER XAVIER M MD August 28, 2016 2:47 pm
[2016-08-28 15:19] VITALS: BP 151/63
--- NOTE | 2016-08-28 16:33 | Cardiology Progress Note ---
Cardiology SOAP Progress Note Subjective: No symptoms Objective: I&O/Vital Signs Vital Sign - Last 12Hours 08/28/16 08/28/16 08/28/16 07:23 11:54 15:56 Temp 98.7 98.5 Pulse 50 54 Resp 20 20 B/P (MAP) 131/63 142/63 Pulse Ox 95 96 O2 Flow Rate 3.00 3.00 3.00 Intake and Output 08/28/16 00:00 Intake Total 2597 ml Balance 2597 ml Weight (Pounds): 202 Weight (Ounces): 6.0 Weight (Calculated Kilograms): [id number] Constitutional: No appears stated age, No AAO x 3, No apparent distress, No PERRL, No well-developed, No well-nourished, No other Respiratory: chest expansion is symmetric, chest is bilaterally symmetric, lungs clear to percussion, lungs clear to auscultation Cardiovascular: regular rate-rhythm, No irregularly irregular, No extra beats, No parasternal heave is noted, No JVD, No edema, No bradycardia, No tachycardia , No point of maximal impulse, No cardiac thrills are palpable, S1 and S2, No gallop/S3, No gallop/S4, No diastolic murmur, No systolic murmur, No friction rub, No click, No other Gastrointestional: No tender, No soft, No round, No distended, No pulsatile mass, No organomegaly, No guarding, No rebound, tenderness, No hernia, No mass, No audible bowel sounds, No abnormal bowel sounds, No abdominal bruits, No spleenomegaly, No other Genital/Rectal: No normal genital exam, No normal rectal exam, No heme negative stool, No normal rectal tone, No normal vaginal exam, No blood at urethral meatus, No decreased rectal tone, No heme positive stool, No tenderness , No other Extremities: No normal range of motion, No non-tender, No normal inspection, No pedal edema, No calf tenderness, No normal capillary refill, No pelvis stable , No calf tenderness, No inflammation, No pedal edema, No slow capillary refill , No swelling, No other, No abrasion, No clubbing, No cyanosis, No ecchymosis, No laceration, No no lower extremity edema bilateral, No significant edema, No tenderness, No wound Neurologic/Psychiatric: No web site manager II-XII nml as tested, No no motor/sensory deficits, No alert, No normal mood/affect, No oriented x 3, No abnormal cerebellar tests, No abnormal web site manager II-XII, No abnormal gait, No aphasia, No EOM palsy, No facial droop, No motor weakness, No sensory deficit, No depressed affect, No disoriented x 3, No other, No grossly intact, No power is 5/5 both on sides Skin: No normal color, No warm/dry, No cyanosis, No cool, No diaphoresis, No damp, No ecchymosis, No jaundice, No mottled, No pallor, No rash, No tattoos/ piercings, No ulcerations, No rash on exposed areas, No ulcerations on exposed areas, No other Results/Procedures: Labs Laboratory Tests 08/28/16 05:25: White Blood Count 16.8H, Red Blood Count 4.25L, Hemoglobin 8.2#L, Hematocrit 28L , Mean Corpuscular Volume 66L, Mean Corpuscular Hemoglobin 19L, Mean Corpuscular Hemoglobin Concent 29L, Red Cell Distribution Width 21.3H, Platelet Count 203, Mean Platelet Volume 10.1, Neutrophils (%) (Auto) 86H, Lymphocytes (% ) (Auto) 7L, Monocytes (%) (Auto) 6, Eosinophils (%) (Auto) 1, Basophils (%) ( Auto) 0, Neutrophils # (Auto) 14.5H, Lymphocytes # (Auto) 1.1, Monocytes # (Auto ) 1.0, Eosinophils # (Auto) 0.2, Basophils # (Auto) 0.0, Sodium Level 140, Potassium Level 3.6, Chloride Level 107, Carbon Dioxide Level 24, Anion Gap 9, Blood Urea Nitrogen 20H, Creatinine 1.35H, Estimat Glomerular Filtration Rate 51 , BUN/Creatinine Ratio 15, Glucose Level 103, Calcium Level 8.6, Total Bilirubin 0.9, Aspartate Amino Transf (AST/SGOT) 24, Alanine Aminotransferase ( ALT/SGPT) 20, Alkaline Phosphatase 65, Total Protein 6.3L, Albumin 3.3 Microbiology 08/26/16 Blood Culture - Preliminary, Resulted Staph, Coag Neg (User Support Specialist) See Comments A/P: Assessment/Dx: gallstone cholecystitis, Anemia, History of coronary artery disease, status post CABG, murmur Plan: the patient has gallstone cholecystitis and the plan is to perform cholecystectomy on Saturday. He also has anemia and the plan is to perform endoscopy tomorrow. The patient denies any cardiac symptoms and has good functional capacity. However he does have history of CAD and CABG. According to the patient he had workup done 3 months ago with his outpatient asphalt distributor operator at [facility]. Which included a stress test which according to the patient was negative. On auscultation there is a basal murmur which is likely aortic stenosis/aortic sclerosis. Records were not received from [facility]. We performed an echocardiogram which showed normal LVEF. There is no aortic stenosis. There is moderate mitral regurgitation. Patient will continue outpatient medications for coronary artery disease including aspirin, hydrochlorothiazide, ezetimibe, statin. Patient will be considered at intermediate risk for major perioperative cardiovascular events undergoing a moderate risk noncardiac surgery. There is no significant cardiac contraindication to the above-mentioned procedures. We will continue to follow. Thank you for your consultation. Please call me if you have any questions. Romina Morfin MD, FACP, FACC, FSCAI, FHRS, CCDS Interventional Cardiology Cardiac Electrophysiology Vascular Medicine and Endovascular Interventions Jan MORFIN MD August 28, 2016 4:33 pm
[2016-08-28 19:54] VITALS: BP 143/54
[2016-08-28] MEDS ORDERED: SIMvastatin 10 MG (ZOCOR) TAB PO SCH (21:00)
[2016-08-28] MEDS: LEVOFLOXACIN 750 MG/D5W 150 ML PRE-MIX IV SCH (22:37)
[2016-08-29] VITALS: BP 149/65
--- NOTE | 2016-08-29 02:29 | OPERATIVE REPORT ---
DATE OF SERVICE: 08/28/2016 PROCEDURES: 1. Colonoscopy. 2. Polypectomy (hot biopsy). SURGEON: Neeta Martinez MD INDICATION FOR PROCEDURE: This gentleman is being admitted with iron deficiency anemia requiring blood transfusion. In addition, he also has symptomatic gallstones that would be addressed by cholecystectomy tomorrow (08/29/2016). Following transfusion, in view of the previous history of polyps, it was felt reasonable to repeat his colonoscopy. Informed consent was obtained after reviewing the procedure in detail. DESCRIPTION OF PROCEDURE: He was placed in left lateral decubitus position and his vital signs were monitored. Conscious sedation was achieved using Versed and fentanyl. Digital rectal examination was unremarkable. The colonoscope was then introduced into the rectum and advanced all the way up to the cecum. The scope was then withdrawn slowly and the mucosa examined in a systematic fashion. FINDINGS: 1. A 1-mm polyp at the rectum that was excised with hot biopsy forcep. 2. Very few sigmoid diverticula. He tolerated the procedure well and was taken back to the nursing area in a stable condition. IMPRESSION: Iron deficiency anemia with a small rectal polyp excised. Recommend repeating in 5 years. Job ID: [id number] DocumentID: [id number] Dictated Date: 08/28/2016 14:45:15 Jeep Driver Date: 08/29/2016 00:05:12 Dictated By: NEETA MARTINEZ MD [facility]
[2016-08-29 04:05] VITALS: BP 149/67
[2016-08-29] MEDS: PIPERACILLIN/TAZOBACTAM 4.5 GM/NS 100 ML IVPB IV SCH ×6 (06:26→23:30)
[2016-08-29] MEDS: CATHETER FLUSH 10 ML SYR IV SCH ×3 (06:26→20:33)
[2016-08-29] MEDS: LEVOTHYROXINE 75 MCG (LEVOTHROID) TABLET PO SCH (06:26)
[2016-08-29] MEDS: MULTIVIT W/MINERALS TAB (THERAGRAN M) PO SCH (06:27)
[2016-08-29] MEDS ORDERED: BUP/EPI 0.25% 1:200,000 (MARCAINE) 30 ML VIAL ONE (07:46)
[2016-08-29 08:21] VITALS: BP 149/68
--- NOTE | 2016-08-29 08:23 | Progress Note-Pre Operative ---
Pre-Operative Progress Note H&P Reviewed The H&P was reviewed, patient examined and no changes noted. Date H&P Reviewed: August 29, 2016 Time H&P Reviewed: 08:23 Pre-Operative Diagnosis: gallstone NEETA MARTINEZ MD August 29, 2016 8:23 am
[2016-08-29] MEDS: LACTATED RINGERS 1,000 ML IV SCH ×3 (08:51→18:49)
[2016-08-29] MEDS ORDERED: fentaNYL INJECTION 100 MCG/2 ML AMP ONE (08:56)
[2016-08-29] MEDS ORDERED: PRESERVISION AREDS SOFTGEL (BAUSH & LOMB) PO SCH (09:00)
[2016-08-29] MEDS ORDERED: amLODIPine 5 MG (NORVASC) TAB PO SCH (09:00)
[2016-08-29] MEDS ORDERED: LOSARTAN 50 MG (COZAAR) TAB PO SCH (09:00)
[2016-08-29] MEDS ORDERED: eZETimibe 10 MG (ZETIA) TABLET PO SCH (09:00)
[2016-08-29] MEDS ORDERED: HYDROCHLOROTHIAZIDE 25 MG (HCTZ) TAB PO SCH (09:00)
--- NOTE | 2016-08-29 09:30 | ECHOCARDIOGRAPHY REPORT ---
DATE OF SERVICE: 08/28/2016 2D ECHOCARDIOGRAM ATTENDING PHYSICIAN: Dr. Erendira Smith. PRIMARY PHYSICIAN: Dr. Hall. ORDERING PHYSICIAN: Dr. Romina Morfin. DIAGNOSIS: Pneumonia, anemia, shortness of breath. FINDINGS: 1. Sinus rhythm. 2. Left atrial dimensions are normal. 3. Left ventricular systolic function is preserved. Left ventricular ejection fraction is 55% to 60%. Mild concentric LVH is noted. Diastolic interventricular septal diameter is 1.4 cm. 4. There are no wall motion abnormalities. 5. Right heart size and function is normal. 6. There is no evidence of pericardial effusion. 7. There is mild diastolic dysfunction. 8. IVC is normal. VALVULAR STRUCTURE OF THE HEART: There is mild tricuspid regurgitation. There is at least moderate mitral regurgitation. Severity may be underestimated. There is no significant aortic insufficiency or aortic stenosis. The aortic valve area is normal. Aortic valve area is 4.4 cm. There is no gradient. To note, aortic diameter is 4.2 cm. The pulmonic valve was not well visualized. CONCLUSION: 1. LV and RV size and function is normal. 2. LVEF is 55%. 3. Mild concentric LVH and mildly dilated LV is noted. LV internal diastolic diameter is 5.5 cm. 4. There is no significant aortic valve pathology. 5. There is at least moderate mitral regurgitation. Severity may be underestimated. Job ID: [id number] DocumentID: [id number] Dictated Date: 08/28/2016 15:51:06 Equipment Analyst Date: 08/28/2016 18:35:39 Dictated By: VINOD MORFIN MD
[2016-08-29] MEDS ORDERED: SEVOFLURANE (ULTANE) 15 ML INHAL SOLN ONE (09:54)
[2016-08-29] MEDS ORDERED: ROCURONIUM 50 MG/5 ML (ZEMURON) VIAL IV ONE (09:54)
[2016-08-29] MEDS ORDERED: LACTATED RINGERS 1,000 ML IV ONE (09:54)
[2016-08-29] MEDS ORDERED: DEXAMETHASONE PF 10 MG/ML (DECADRON) VIAL ONE (09:54)
[2016-08-29] MEDS ORDERED: LIDOCAINE PF 2% 5 ML (XYLOCAINE) VIAL ONE (09:54)
[2016-08-29] MEDS ORDERED: ONDANSETRON 4 MG/2 ML (SDV) Z0FRAN ONE (09:54)
[2016-08-29] MEDS ORDERED: proPOfol 200 MG/20 ML (DIPRIVAN) VIAL IV ONE (09:54)
[2016-08-29] MEDS ORDERED: GLYCOPYRROLATE 0.2 MG/ML (ROBINUL) 2 ML VIAL ONE (10:17)
[2016-08-29] MEDS ORDERED: NEOSTIGMINE (BLOXIVERZ ) 1 MG/1ML 10 ML VIAL ONE (10:17)
--- NOTE | 2016-08-29 10:44 | Progress Note-Post Operative ---
Post-Operative Progess Note Surgeon (s)/Proofer (s) Surgeon NEETA MARTINEZ MD Proofer: not applicable Pre-Operative Diagnosis gallstone Post-Operative Diagnosis same Procedure & Operative Findings Date of Procedure 08/29/16 Procedure Performed/Findings robotic-assisted cholecystectomy Anesthesia Type Gen. Estimated Blood Loss Estimated blood loss (mL): minimal Specimens/Packing Specimens Removed gallbladder NEETA MARTINEZ MD August 29, 2016 10:44 am
[2016-08-29] MEDS ORDERED: fentaNYL INJECTION 100 MCG/2 ML AMP IVP PRN (10:45)
[2016-08-29] MEDS ORDERED: HYDROcodone/APAP 5 MG/325 MG (LORTAB) TAB PO PRN (10:45)
[2016-08-29] MEDS ORDERED: ONDANSETRON 4 MG/2 ML (SDV) Z0FRAN IVP PRN ×2 (10:45→11:15)
[2016-08-29] MEDS ORDERED: HYDR-3812 PO (10:46)
--- NOTE | 2016-08-29 10:47 | Discharge Inst-Simple/Standard ---
Discharge Inst-Standard Discharge Medications New, Converted or Re-Newed RX: RX on Chart Patient Instructions/Follow Up Plan of Care/Instructions/FU: incentive spirometry. Dressings off in a.m. Follow-up in 3 weeks Activity as Tolerated: Yes Discharge Diet: No Restrictions NEETA MARTINEZ MD August 29, 2016 10:47 am
[2016-08-29] MEDS ORDERED: morphine INJ 10 MG/ML 1ML (SYR OR VIAL) ONE (11:00)
[2016-08-29] MEDS ORDERED: metroNIDAZOLE 500MG/100ML IVPB 100 ML IV NR (11:00)
[2016-08-29] MEDS ORDERED: ceFAZolin INJECTION 1,000 MG in NS (IVPB) 50 ML IV NR (11:00)
[2016-08-29] MEDS: morphine INJ 10 MG/ML 1ML (SYR OR VIAL) IVP PRN ×2 (11:19→11:25)
[2016-08-29 12:00] VITALS: BP 153/51
[2016-08-29] MEDS ORDERED: PATIENT MAY USE OWN MEDS, ALL MC SCH (13:30)
[2016-08-29] MEDS: IRON SUCROSE INJECTION 200 MG in NS (IVPB) 100 ML IV SCH (14:30)
[2016-08-29 15:50] VITALS: BP 162/61
--- NOTE | 2016-08-29 16:06 | OPERATIVE REPORT ---
DATE OF SERVICE: 08/29/2016 PREOPERATIVE DIAGNOSIS: Gallstone. POSTOPERATIVE DIAGNOSIS: Gallstone. OPERATION: Robotic-assisted cholecystectomy. SURGEON: Omari Hirsch MD ANESTHESIA: General anesthesia. BLOOD LOSS: Minimal. TYPE OF WOUND: Type 2 (clean-contaminated wound). INDICATION FOR PROCEDURE: This gentleman presented with symptomatic gallstone. He was offered cholecystectomy using robotic assistance. Informed consent was obtained after reviewing the operative details and complications of wound infection and bile leak. DESCRIPTION OF PROCEDURE: He was placed supine on the operating room table and general anesthesia induced using an endotracheal tube. A gram of Ancef and 500 mg of Flagyl were administered intravenously as prophylaxis against wound infection. Sequential compression devices were placed around his legs, to minimize the risk of venous thrombosis. Abdomen was prepared and draped in the usual sterile manner. A supraumbilical incision was made and pneumoperitoneum established using a Veress needle. Intraabdominal pressure was maintained at 15 mmHg, using carbon dioxide insufflation. A 12 mm trocar was placed and anatomy visualized using the three-dimensional, high-definition laparoscope associated with [employer] system. Under direct view, I placed an 8 mm cannula over each side of the abdomen, followed by a 5 mm trocar over the left subcostal region. The patient was then turned into reverse Trendelenburg position, with the right side tilted up. The robotic system was then docked in place. Laparoscopic survey confirmed an elongated gallbladder with omentum adherent along the body of it. The fundus of the gallbladder was retracted cephalad and omentum taken down using hook cautery. Eventually, I was able to grasp the infundibulum with Cadiere forceps and begin the dissection around Calot's triangle. The cystic duct and artery were delineated and controlled using locking clips. Cholecystectomy was then completed using the hook cautery. The gallbladder was then placed in an Endocatch bag and removed via the supraumbilical trocar site. The fascia over this incision was closed using #1 Vicryl. Skin incisions were closed using 4-0 Vicryl, in a subcuticular fashion. Marcaine 0.25% with epinephrine was infiltrated along the incisions, both preemptively and at the conclusion of the operation. He tolerated the procedure well, was extubated in the operating room and taken to the recovery room in stable condition. Needle, sponges and instruments were correct at the end of the operation. Job ID: [id number] DocumentID: [id number] Dictated Date: 08/29/2016 10:43:17 [employer] Date: 08/29/2016 15:07:29 Dictated By: MD SAMEERA AIKEN
[2016-08-29 19:13] VITALS: BP 154/97
[2016-08-29] MEDS ORDERED: PRAVASTATIN 20 MG (PRAVACHOL) TAB NON-FORMULARY PO SCH (21:00)
[2016-08-29] MEDS ORDERED: LEVOFLOXACIN 750 MG/D5W 150 ML PRE-MIX IV SCH (22:30)
[2016-08-30 00:13] VITALS: BP 158/75
[2016-08-30 04:07] VITALS: BP 154/86
[2016-08-30] MEDS: LACTATED RINGERS 1,000 ML IV SCH (04:56)
[2016-08-30] MEDS: CATHETER FLUSH 10 ML SYR IV SCH (04:56)
[2016-08-30] MEDS: MULTIVIT W/MINERALS TAB (THERAGRAN M) PO SCH (06:13)
[2016-08-30] MEDS: PIPERACILLIN/TAZOBACTAM 4.5 GM/NS 100 ML IVPB IV SCH ×2 (06:14)
[2016-08-30] MEDS ORDERED: LEVOTHYROXINE 75 MCG (LEVOTHROID) TABLET PO SCH (06:30)
[2016-08-30 08:00] VITALS: BP 160/71
[2016-08-30] MEDS ORDERED: HYDROCHLOROTHIAZIDE 25 MG (HCTZ) TAB PO SCH (09:00)
[2016-08-30] MEDS ORDERED: eZETimibe 10 MG (ZETIA) TABLET PO SCH (09:00)
[2016-08-30] MEDS ORDERED: LOSARTAN 100 MG TAB PO SCH (09:00)
[2016-08-30] MEDS ORDERED: amLODIPine 5 MG (NORVASC) TAB PO SCH (09:00)
--- NOTE | 2016-08-30 10:38 | Progress Note-Standard ---
Standard Progress Note Progress Notes/Assess & Plan Progress/Assessment & Plan 08/30/16:doing well. Incisions dry. Could be discharged home. Outpatient upper endoscopy in a week to investigate anemia Final Diagnosis ggallstone. Iron deficiency anemia. NEETA MARTINEZ MD Aug 30, 2016 10:38 am
--- NOTE | 2016-08-30 10:46 | Discharge Summary-Hospitalist ---
Diagnosis/Chief Complaint Date of Admission August 26, 2016 at 21:30 Date of Discharge Discharge Date: Aug 30, 2016 Discharge Time: 1000 Admission Diagnosis Assessment: Acute abdominal pain with severe anemia requiring transfusions of blood with no history of GI bleed but maintain on aspirin along with large gallstone with early cholecystitis in need of cholecystectomy along with endoscopies to evaluate source of bleeding Coronary artery disease previous bypass surgery by Dr. 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 Fagan Hypothyroidism CRI creat 1.3 Discharge Diagnosis Assessment: Acute abdominal pain with severe anemia requiring transfusions of blood with no history of GI bleed but maintained on aspirin along with large gallstone with early cholecystitis s/p uncomplicated cholecystectomy along with polyp on colonoscopy without identifying source of bleed so likely combo of CRI and poor iron absorption Coronary artery disease previous bypass surgery by Dr. 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 Fagan Hypothyroidism CRI creat 1.3 Plan: I appreciate Dr. Hirsch expertise Colon prep to be completed Transfuse 2 units of packed red blood cells and added on ferritin and iron to evaluate chronicity of the blood loss source and empirically placed on Venofer iron infusions Consult cardiology for close monitoring due to heart disease and in need of surgery for risk stratification purposes Hold most of home medicines since blood pressure is slightly low Reason Hospital Visit/Course CC: Abdominal pain with severe anemia and early LLL Pneumonia HPI: This is an 80-year-old white male clinic patient of Dr. Hall and cardiology clinic Dr. Fagan the presents to the emergency room with complaints of abdominal pain generalized in location. He reports these been not feeling well for the past several days and laying around in bed for the past 2 days that worsened to the point of coming to the ER last night and found to have a large gallstone with early inflammation/infection of the gallbladder in addition to severe anemia with hemoglobin is 7.7 that decreased to 6.3 today. he is currently receiving 2 units of packed red blood cell transfusion and Dr. Hirsch is seen him in preparation for EGD and colonoscopy and gallbladder evaluation for cholecystectomy in the near future. Chest x-ray did not identify the left lower lobe pneumonia and was on CT scan so he was placed empirically on Zosyn and Levaquin. Patient reports some mild abdominal pain but he is very against all pain medication and he wishes and not use it currently. He is in the mist of colon prep for colonoscopy. He reports that he had his labs checked 2 weeks ago and everything was normal and they did not mention any details regarding anemia at that time he's never had a blood transfusion or GI bleed or any evidence of melena or hematochezia at home. He does take a regular aspirin at home 325 mg dose and has since his heart surgery per Dr. Carlton. Notes from 08/30/16: Chart Review: Dr. Hirsch will DC today No fever Vitals stable Hgb 8.2 after blood given Has received 2 iron infusions so no PO iron will be Rxed Out-pt EGD with Dr. Hirsch Patient Interview: Pt states that he is not experiencing pain Physical exam stable. Lungs sound perfect Pt states that he has been having BMs and has been urinating regularly Pt was informed that he will have a follow up with Dr. Hall to review labs and check hgb levels No fever, vital signs stable, pleasant, improved Regular rate and rhythm, clear to auscultation bilaterally Plan: Follow up with Dr. Hall for a review of labs next week, orders placed Scribed by Sheela Doherty under the direct supervision of Dr. Cooper. Hospital course: Patient had an uneventful hospital course he was admitted due to severe anemia and the lowest was 6.6 to require 2 units of packed red blood cells iron level showing very low level so iron infusions also given during hospital course. Dr. Hirsch was consulted and he underwent an uncomplicated cholecystectomy and colonoscopy that showed one polyp. Cardiology was appreciated and recommendations and monitoring during his hospital course. Overall he was doing well hemoglobin remained stable after 2 units of packed red blood cells and was deemed stable for discharge by Dr. Torrey Salas outpatient EGD and close follow-up with Dr. Liz for lab check in office visit. Discharge Summary Discharge Physical Examination Allergies: Coded Allergies: No Known Drug Allergies (Unverified , 05/27/09) Vitals & I&Os Vital Signs Date Time Temp Pulse Resp B/P (MAP) Pulse Ox O2 Delivery O2 Flow Rate FiO2 08/30/16 10:58 61 16 160/71 96 3.00 08/30/16 08:00 96.7 08/26/16 19:40 Room Air Hospital Course Labs (last 24 hrs) Microbiology 08/26/16 Blood Culture - Preliminary, Resulted Staph, Coag Neg (Last Picker) See Comments Discharge Home Medications: Active Scripts Active Hydrocodon -Acetaminophen 5-325 (Hydrocodone/Acetaminophen) 1 Each Tablet 1-2 Tab PO 4-6HR PRN Reported Preservision Areds Softgel (Vit A/C/E/Zinc/Co) 1 Cap Capsule 1 Cap PO DAILY Multivitamins (Multivitamin) 1 Each Tablet 1 Tab PO DAILY Pravastatin Sodium 20 Mg Tablet 30 Mg PO HS TAKES 1 & 1/2 OF A (20 MG) TABLET Losartan Potassium 100 Mg Tablet 50 Mg PO DAILY TAKES 1/2 OF A (100 MG) TABLET Hydrochlorothiazide 25 Mg Tablet 25 Mg PO DAILY Zetia (Ezetimibe) 10 Mg Tablet 10 Mg PO DAILY Amlodipine Besylate 5 Mg Tablet 5 Mg PO HS Levothyroxine Sodium 75 Mcg Tablet 75 Mcg PO DAILY Instructions to patient/family Please see electonic discharge instructions given to patient. Clinical Quality Measures DVT/VTE Risk/Contraindication: VTE Present on Admission: No Risk Factor Score Per Nursin RFS Level Per Nursing on Admit: 2=Moderate NAHID COOPER DO Aug 30, 2016 10:46
[2016-08-30 10:58] VITALS: BP 160/71
--- NOTE | 2016-08-30 12:24 | Anesthesia-General Post-Op ---
General Patient Condition Mental Status/LOC: Same as Preop Cardiovascular: Satisfactory Nausea/Vomiting: Absent Respiratory: Satisfactory Pain: Controlled Complications: Absent Post Op Complications Complications None Follow Up Care/Instructions Patient Instructions None needed. Anesthesia/Patient Condition Patient Condition Patient is doing well, no complaints, stable vital signs, no apparent adverse anesthesia problems. No complications reported per nursing. SHERRIE VALDEZ CRNA Aug 30, 2016 12:23
--- NOTE | 2016-08-31 06:01 | DISCHARGE SUMMARY ---
DATE OF SERVICE: 08/30/2016 DIAGNOSES: 1. Personal history of polyps. 2. Anemia due to chronic gastrointestinal blood loss. 3. Symptomatic gallstone. This gentleman is admitted with right upper quadrant pain due to gallstone. During the visit, he was found to be anemic with an iron-deficiency picture. Due to a previous history of polyps, colonoscopy was repeated. A small rectal polyp was excised. Subsequently, he underwent cholecystectomy and has made a reasonable recovery. He is being discharged in good condition with arrangements for an outpatient upper endoscopy regarding his anemia. Job ID: [id number] DocumentID: [id number] Dictated Date: 08/30/2016 10:37:49 Flour Blender Date: 08/31/2016 04:08:33 Dictated By: MICKEY CORBIN MD
== END 2016-08-30 11:03 | disposition home or self-care (01) | DRG 417 ==
LOC: EDUNIT# 19:26 → ER 19:29 → 4TH 21:30 → ENPENDDIS 08-30 10:00
PROVIDERS: ADMIT Internal Medicine; ATTEND Internal Medicine
PROC: 0DBP8ZX Excision of Rectum, Via Natural or Artificial Opening Endoscopic, Diagnostic (ICD-10-PCS; 2016-08-28)
PROC: 8E0W4CZ Robotic Assisted Procedure of Trunk Region, Percutaneous Endoscopic Approach (ICD-10-PCS; 2016-08-29)
PROC: 0FT44ZZ Resection of Gallbladder, Percutaneous Endoscopic Approach (ICD-10-PCS; principal; 2016-08-29 09:29)
DX: K80.12 Calculus of gallbladder with acute and chronic cholecystitis without obstruction (principal); D50.0 Iron deficiency anemia secondary to blood loss (chronic); K62.1 Rectal polyp; K57.30 Diverticulosis of large intestine without perforation or abscess without bleeding; J18.9 Pneumonia, unspecified organism; I25.10 Atherosclerotic heart disease of native coronary artery without angina pectoris; I71.4 Abdominal aortic aneurysm, without rupture; I12.9 Hypertensive chronic kidney disease with stage 1 through stage 4 chronic kidney disease, or unspecified chronic kidney disease; N18.9 Chronic kidney disease, unspecified; E03.9 Hypothyroidism, unspecified; I34.0 Nonrheumatic mitral (valve) insufficiency; E78.5 Hyperlipidemia, unspecified; I25.2 Old myocardial infarction; R01.1 Cardiac murmur, unspecified; Z79.82 Long term (current) use of aspirin; Z95.1 Presence of aortocoronary bypass graft; Z87.891 Personal history of nicotine dependence
CPT/HCPCS: 36415; 71010; 74177; 76705; 80053; 81000; 82274; 82728; 83540; 83605; 83690; 85007; 85025; 85027; 85610; 85730; 86850; 86900; 86901; 86920; 87040; 93005; 93306; 94664

== ENCOUNTER 2016-08-31 05:43 | Outpatient (CLI) | payer MEDICARE, OTHER ==
[~2016-08-31] VITALS: Ht 182.9 cm; Wt 91.8 kg
[~2016-08-31 05:43] MED LIST changes: +AMLO5TAB2 PO; +ASPI-808 PO; +DOXA1TAB2; +EZET10TA5 PO; +HYDR-3812 PO; +HYDR25TA4 PO; +LEVO75TA6 PO; +LOSA100T28 PO; +MULT1TAB69 PO; +PRAV20TA3 PO; +VIT1CAPS5 PO
[2016-09-03] MEDS ORDERED: PANT40TA2 PO (13:55)
== END 2016-08-31 12:57 ==
LOC: PREOP 05:43
PROVIDERS: ATTEND Surgery
DX: Z01.818 Encounter for other preprocedural examination (principal); R19.5 Other fecal abnormalities; D50.9 Iron deficiency anemia, unspecified

== ENCOUNTER 2016-09-03 12:59 | Day surgery (SDC) | payer MEDICARE, OTHER ==
[~2016-09-03] VITALS: Ht 182.9 cm; Wt 91.8 kg
[2016-09-03] MEDS ORDERED: FLUMAZENIL (ROMAZICON) 0.1 MG/ML 5 ML VIAL INJ PRN (13:30)
[2016-09-03] MEDS ORDERED: NALOXONE 0.4 MG/ML 1 ML (NARCAN) VIAL IVP PRN (13:30)
[2016-09-03] MEDS ORDERED: NS IV 500 ML 500 ML IV PRN (13:30)
[2016-09-03] MEDS ORDERED: HURRICAINE EXT TUBE (BENZOCAINE) XX PRN (13:30)
[2016-09-03 13:33] VITALS: BP 147/70
[2016-09-03] MEDS: fentaNYL INJECTION 100 MCG/2 ML AMP IVP PRN ×2 (13:33→13:36)
[2016-09-03] MEDS: MIDAZOLAM 2 MG/2 ML (VERSED) VIAL IVP PRN ×2 (13:34→13:37)
--- NOTE | 2016-09-03 13:53 | Conscious Sedation/ASA ---
Conscious Sedation Pre-Proced Time Reviewed: 13:02 ASA Class: 2 Airway Mallampati Classification: ([place] appropriate class) I. II. III, IV Lungs Heart ASA score ASA 1: a normal healthy patient ASA 2: a patient with a mild systemic disease (mid diabetes, controlled hypertension, obesity ASA 3: a patient with a severe systemic disease that limits activity (angina , COPD, prior Myocardial infarction) ASA 4: a patient with an incapacitating disease that is a constant threat to life (CHF, renal failure) ASA 5: a moribund patient not expected to survive 24 hrs. (ruptured aneurysm) ASA 6: a declared brain patient whose organs are being harvested. For emergent operations, add the letter E after the classification Grade 2 Sedation Plan: Discussed options with patient/fam Note The patient is an appropriate candidate to undergo the planned procedure, sedation, and anesthesia. The patient immediately re-assessed prior to indication. NEETA MARTINEZ MD Sep 03, 2016 1:53 pm
--- NOTE | 2016-09-03 13:54 | Endoscopy Procedure Report ---
Endoscopy Report Date: Sep 03, 2016 Preoperative Diagnosis: Iron deficiency anemia. Heme positive stool Study Performed: Upper Endoscopy Procedure Instrument: Endoscope Endo Procedure/Findings Findings 1.: Hiatal Hernia, Gastric Ulcer, Gastritis Recommendations: Recommendations: 1.: Start Medication(s) Copy Copies To 1: ANH CASTAÑEDA DO Copies To 2: NAHID COOPER XAVIER M MD Sep 03, 2016 1:54 pm
[2016-09-03] MEDS ORDERED: PANT40TA2 PO (13:55)
--- NOTE | 2016-09-03 13:56 | Discharge Inst-Simple/Standard ---
Discharge Inst-Standard Discharge Medications New, Converted or Re-Newed RX: RX on Chart Patient Instructions/Follow Up Plan of Care/Instructions/FU: Follow-up with me in 3 weeks. To avoid nonsteroidals Activity as Tolerated: Yes Discharge Diet: No Restrictions NEETA MARTINEZ MD Sep 03, 2016 1:56 pm
[2016-09-03 14:05] VITALS: BP 109/60
[2016-09-03 14:30] VITALS: BP 141/67
[2016-09-03 14:51] VITALS: BP 141/67
--- NOTE | 2016-09-04 06:25 | OPERATIVE REPORT ---
DATE OF SERVICE: 09/03/2016 PROCEDURE: Upper GI endoscopy with antral biopsy. SURGEON: Neeta Martinez MD INDICATION FOR PROCEDURE: This gentleman has recently been admitted with iron deficiency anemia requiring blood transfusion. In addition, he also required cholecystectomy. From this viewpoint, he has recovered well. Colonoscopy was notable for a very small polyp. Therefore, he returned today for an upper endoscopy to rule out gastric ulcers, contributing to blood loss and anemia. Informed consent was obtained after reviewing the procedure in detail. DESCRIPTION OF PROCEDURE: He was placed in left lateral decubitus position and his vital signs were monitored. Conscious sedation was achieved using Versed and fentanyl. The flexible gastroscope was introduced down the esophagus, past the stomach, into the proximal duodenum. FINDINGS: ESOPHAGUS: Grade II esophagitis with hiatal hernia. STOMACH: Multiple distal gastric ulcers and erosions were found. Most of them had erythema around them, indicating chronic blood loss. DUODENUM: Quite a few erosions were found along the first part. An antral biopsy was obtained for Helicobacter status. He tolerated the procedure well and was taken back to the nursing area in a stable condition. IMPRESSION: Chronic blood loss contributing to iron deficiency anemia and heme positive stools. Multiple gastric ulcers and erosions found. We will treat with proton pump inhibitors. Job ID: [id number] DocumentID: [id number] Dictated Date: 09/03/2016 13:50:04 Central Station Operator Date: 09/04/2016 01:17:50 Dictated By: NEETA MARTINEZ MD [facility]
== END 2016-09-03 14:45 | disposition home or self-care (01) ==
LOC: ENDO 12:59
PROVIDERS: ATTEND Surgery
DX: K25.9 Gastric ulcer, unspecified as acute or chronic, without hemorrhage or perforation (principal); D50.9 Iron deficiency anemia, unspecified; K44.9 Diaphragmatic hernia without obstruction or gangrene; K20.9 Esophagitis, unspecified; R19.5 Other fecal abnormalities; I10 Essential (primary) hypertension; I25.10 Atherosclerotic heart disease of native coronary artery without angina pectoris; E78.5 Hyperlipidemia, unspecified; Z79.899 Other long term (current) drug therapy

== ENCOUNTER 2017-07-10 05:35 | Outpatient (CLI) | payer MEDICARE, OTHER ==
[~2017-07-10] VITALS: Ht 182.9 cm; Wt 91.8 kg
[~2017-07-10 05:35] MED LIST changes: +ACHD5005 PO; -HYDR-3812 PO; +PANT40TA2 PO
[2017-07-10] MEDS ORDERED: ASPI-999 PO ×2 (10:40)
== END 2017-07-10 10:46 ==
LOC: PREOP 05:35
PROVIDERS: ATTEND Surgery
DX: Z01.818 Encounter for other preprocedural examination (principal); D50.9 Iron deficiency anemia, unspecified; Z87.11 Personal history of peptic ulcer disease

== ENCOUNTER 2017-07-11 07:55 | Day surgery (SDC) | payer MEDICARE, OTHER ==
[~2017-07-11] VITALS: Ht 182.9 cm; Wt 91.8 kg
[~2017-07-11 07:55] MED LIST changes: +ASPI-999 PO
[2017-07-11] MEDS ORDERED: NS IV 500 ML 500 ML IV PRN (08:08)
[2017-07-11] MEDS ORDERED: NALOXONE 0.4 MG/ML 1 ML (NARCAN) VIAL IVP PRN (08:15)
[2017-07-11] MEDS ORDERED: HURRICAINE EXT TUBE (BENZOCAINE) XX PRN (08:15)
[2017-07-11] MEDS ORDERED: FLUMAZENIL (ROMAZICON) 0.1 MG/ML 5 ML VIAL INJ PRN (08:15)
[2017-07-11 08:26] VITALS: BP 147/67
[2017-07-11] MEDS ORDERED: fentaNYL INJECTION 100 MCG/2 ML AMP ONE ×2 (09:23→09:24)
[2017-07-11] MEDS ORDERED: HURRICAINE EXT TUBE (BENZOCAINE) ONE (09:24)
[2017-07-11] MEDS ORDERED: MIDAZOLAM 2 MG/2 ML (VERSED) VIAL ONE ×3 (09:24)
[2017-07-11] MEDS: fentaNYL INJECTION 100 MCG/2 ML AMP IVP PRN ×2 (09:46→09:52)
[2017-07-11] MEDS ORDERED: EPINEPHrine INJECTION 1 MG/ML AMP ONE (09:48)
[2017-07-11] MEDS: MIDAZOLAM 2 MG/2 ML (VERSED) VIAL IVP PRN ×2 (09:48→09:51)
--- NOTE | 2017-07-11 10:20 | History & Physicial ---
History of Present Illness History of Present Illness Reason for visit/HPI to undergo upper endoscopy and colonoscopy regarding ongoing melena with iron deficiency anemia. She has a personal history of polyps and gastric ulcers. Date of Admission 07/11/17 Date Seen by Provider: Jul 11, 2017 Time Seen by Provider: 08:58 I consulted on this patient on 07/11/17 10:18 Attending Physician Neeta Martinez MD Admitting Physician Fox Hall DO Consult Allergies and Home Medications Allergies Coded Allergies: No Known Drug Allergies (Unverified , 07/10/17) Home Medications Amlodipine Besylate 5 Mg Tablet, 5 MG PO HS, (Reported) Aspirin 81 Mg Tab.chew, 81 MG PO DAILY, (Reported) Ezetimibe 10 Mg Tablet, 10 MG PO DAILY, (Reported) Hydrochlorothiazide 25 Mg Tablet, 25 MG PO DAILY, (Reported) Levothyroxine Sodium 75 Mcg Tablet, 75 MCG PO DAILY, (Reported) Losartan Potassium 100 Mg Tablet, 50 MG PO DAILY, (Reported) TAKES 1/2 OF A (100 MG) TABLET Multivitamin 1 Each Tablet, 1 TAB PO DAILY, (Reported) Pantoprazole Sodium 40 Mg Tablet.dr, 40 MG PO DAILY Prescribed by: NEETA MARTINEZ on 09/03/16 1355 Pravastatin Sodium 20 Mg Tablet, 30 MG PO HS, (Reported) TAKES 1 & 1/2 OF A (20 MG) TABLET Vit A/C/E/Zinc/Co 1 Cap Capsule, 1 CAP PO DAILY, (Reported) Patient Home Medication List Home Medication List Reviewed: Yes Past Cazkhwr-Crhsgq-Dzxbdj Hx Patient Social History Marrital Status: Employed/Student: retired Alcohol Use: Denies Use Number of Drinks Today: Alcohol Beverage of Choice: Wine Recreational Drug Use: No Smoking Status: Former Smoker Former Smoker, Quit: Apr 01, 1994 Type Used: Cigarettes 2nd Hand Smoke Exposure: No Recent Foreign Travel: No Contact w/other who traveled: No Recent Hopitalizations: No Recent Infectious Disease Expo: No Immunizations Up To Date Tetanus Booster (TDap): Unknown Pediatric: No Date of Pneumonia Vaccine: Sep 03, 2016 Date of Influenza Vaccine: Jan 14, 2017 Seasonal Allergies Seasonal Allergies: Yes Surgeries Yes CABG, Gallbladder Respiratory No Currently Using CPAP: Yes (NOT EVERY NIGHT) Cardiovascular Yes Coronary Artery Disease, Heart Attack, Hypertension Neurological No Reproductive System Hx Reproductive Disorders: No Sexually Transmitted Disease: No HIV/AIDS: No Genitourinary No Gastrointestinal Yes Gastroesophageal Reflux, Diverticulosis, Polyps, Ulcer Musculoskeletal No Endocrine History of Endocrine Disorders: No Endocrine Disorders: Hypothyroidsim HEENT History of HEENT Disorders: No Loss of Vision: Bilateral Hearing Impairment: Denies Cancer No Psychosocial History of Psychiatric Problem: No Integumentary History of Skin or Integumenta: No Blood Transfusions History of Blood Disorders: No Adverse Reaction to a Blood Tr: No (HAS HAD BLOOD WITH NO REACTION) Family Medical History Family Hx: Alcoholism 19 FATHER Arthritis 19 MOTHER Asthma 19 MOTHER Hypertension 19 FATHER Kidney disease 19 FATHER Visual disorder G8 BROTHER G8 SISTER Constitutional: weakness EENTM: no symptoms reported Respiratory: no symptoms reported Cardiovascular: no symptoms reported Gastrointestinal: melena Genitourinary: no symptoms reported Musculoskeletal: no symptoms reported Skin: no symptoms reported Psychiatric/Neurological: No Symptoms Reported Physical Exam Vital Signs Vital Signs - First Documented 07/11/17 08:26 Temp 97.1 Pulse 58 Resp 18 B/P (MAP) 147/67 (93) Pulse Ox 98 O2 Delivery Room Air Capillary Refill : General Appearance: No Apparent Distress Neck: Normal Inspection Respiratory: Lungs Clear Cardiovascular: Regular Rate, Rhythm Gastrointestinal: Non Tender, Soft Rectal: Deferred Neurologic/Psychiatric: Oriented x3 Skin: Warm/Dry Assessment/Plan Assessment and Plan gentleman with a recent history of melena. Ongoing iron deficiency anemia. Previous gastric ulcers and colonic polyps. For upper endoscopy with the colonoscopy. Admission Diagnosis Admission Status: Other (Outpt Proc) NEETA MARTINEZ MD Jul 11, 2017 10:20 am
--- NOTE | 2017-07-11 10:24 | Endo Procedure Record ---
Endo Procedure Report Date of Procedure Last Colonoscopy: Yes (2017) Jul 11, 2017 Surgeon (s) NEETA MARTINEZ MD Post Procedure/Op Diagnosis EGD: Active 2 mm ulcer at the distal stomach with erythema around it. Esophagitis has resolved Colonoscopy: Sigmoid diverticulosis. No recurrent polyps Procedure Performed EGD with sclerotherapy Colonoscopy to cecum Description of Procedure Anesthesia Type: Conscious Sedation Specimen(s) collected/removed none Description of the Procedure Indication for the procedures: This gentleman was found to have gastric ulcers and a rectal polyp on a previous examination. He continued to have iron deficiency anemia and reported melena quite recently. Therefore, it was felt reasonable to repeat endoscopy. Informed consent was obtained after reviewing the procedures in detail. Description of the procedures: EGD/sclerotherapy: She was placed in left lateral decubitus position and his vital signs were monitored. Conscious sedation was achieved using Versed and fentanyl. The flexible gastroscope was introduced down the esophagus, past the stomach, into the proximal duodenum. Findings: Esophagus: Resolved esophagitis Stomach: A 2 mm active ulcer at the distal stomach with erythema around it. Due to the history of recent melena, sclerotherapy was accomplished using 1 in 10,000 epinephrine, achieving adequate blanching around the ulcer. Duodenum: Normal He tolerated the procedure well and was turned around in preparation for colonoscopy. Impression: Previous gastric ulcer. Continued iron deficiency anemia and a recent history of melena. Active gastric ulcer identified with erythema around it. Sclerotherapy completed. Colonoscopy: Digital rectal examination was unremarkable. The colonoscope was then introduced in the rectum and advanced all the way up to the cecum The quality of bowel preparation was excellent. The scope was then withdrawn slowly and the mucosa examined in a systematic fashion. Findings: Uncomplicated sigmoid diverticulosis. No recurrent polyps were identified. He tolerated the procedures well and was taken to the nursing area in a stable condition. Impression: Previous history of polyps. Iron deficiency anemia. No recurrence. Recommend surveillance colonoscopy in 5 years Copies To: ANH CASTAÑEDA XAVIER M MD Jul 11, 2017 10:24 am
--- NOTE | 2017-07-11 10:25 | Discharge Inst-Simple/Standard ---
Discharge Inst-Standard Discharge Medications New, Converted or Re-Newed RX: Other Patient Instructions/Follow Up Plan of Care/Instructions/FU: Follow up with his primary physician Activity as Tolerated: Yes Discharge Diet: No Restrictions NEETA MARTINEZ MD Jul 11, 2017 10:25 am
--- NOTE | 2017-07-11 10:26 | Conscious Sedation/ASA ---
Conscious Sedation Pre-Proced Time Reviewed: 09:15 ASA Class: 2 Airway Mallampati Classification: ([place] appropriate class) I. II. III, IV Lungs Heart ASA score ASA 1: a normal healthy patient ASA 2: a patient with a mild systemic disease (mid diabetes, controlled hypertension, obesity ASA 3: a patient with a severe systemic disease that limits activity (angina , COPD, prior Myocardial infarction) ASA 4: a patient with an incapacitating disease that is a constant threat to life (CHF, renal failure) ASA 5: a moribund patient not expected to survive 24 hrs. (ruptured aneurysm) ASA 6: a declared brain patient whose organs are being harvested. For emergent operations, add the letter E after the classification Grade 1 Sedation Plan: Discussed options with patient/fam Note The patient is an appropriate candidate to undergo the planned procedure, sedation, and anesthesia. The patient immediately re-assessed prior to indication. NEETA MARTINEZ MD Jul 11, 2017 10:26 am
[2017-07-11 10:55] VITALS: BP 132/77
[2017-07-11] MEDS ORDERED: EPINEPHrine INJECTION 1 MG/ML AMP IV PRN (11:00)
[2017-07-11 11:30] VITALS: BP 147/69
[2017-07-11 11:35] VITALS: BP 147/69
== END 2017-07-11 11:35 | disposition home or self-care (01) ==
LOC: ENDO 07:55
PROVIDERS: ATTEND Surgery
DX: K25.9 Gastric ulcer, unspecified as acute or chronic, without hemorrhage or perforation (principal); K20.9 Esophagitis, unspecified; K21.9 Gastro-esophageal reflux disease without esophagitis; K44.9 Diaphragmatic hernia without obstruction or gangrene; K57.30 Diverticulosis of large intestine without perforation or abscess without bleeding; D50.9 Iron deficiency anemia, unspecified; I10 Essential (primary) hypertension; I25.10 Atherosclerotic heart disease of native coronary artery without angina pectoris; E03.9 Hypothyroidism, unspecified; I25.2 Old myocardial infarction; Z79.899 Other long term (current) drug therapy; Z87.19 Personal history of other diseases of the digestive system; Z79.82 Long term (current) use of aspirin

== ENCOUNTER → 2017-08-02 | Outpatient (RCR) | payer MEDICARE, OTHER | END | disposition home or self-care (01) | LOC: CR3 07-03 15:46 | PROVIDERS: ATTEND Internal Medicine | DX: Z29.8 Encounter for other specified prophylactic measures (principal) ==

== ENCOUNTER → 2017-09-04 | Outpatient (RCR) | payer MEDICARE, OTHER | END | disposition home or self-care (01) | LOC: CR3 08-05 16:00 | PROVIDERS: ATTEND Internal Medicine | DX: Z29.8 Encounter for other specified prophylactic measures (principal) ==

== ENCOUNTER 2017-09-10 10:15 | Outpatient (CLI) | payer MEDICARE, OTHER ==
[~2017-09-10] VITALS: Ht 182.9 cm; Wt 88.6 kg
[2017-09-10] VITALS (8 sets, daily range): BP systolic 124–140; BP diastolic 54–71
[2017-09-10] MEDS ORDERED: NS IV 500 ML 500 ML ONE (10:59)
[2017-09-10] MEDS ORDERED: NS IV 500 ML 500 ML IV ONE (11:30)
[2017-09-10 14:02] LABS: HEMOGLOBIN 8.4 G/DL (13.3-17.7)
== END 2017-09-10 16:30 | disposition home or self-care (01) ==
LOC: SDC 10:15
PROVIDERS: ATTEND Nurse Practitioner Family
DX: D64.9 Anemia, unspecified (principal)
CPT/HCPCS: 36415; 36430; 85014; 85018; 86850; 86900; 86901; 86920

== ENCOUNTER 2017-09-30 16:36 | Outpatient (RCR) | payer MEDICARE, OTHER | END 2017-10-06 | disposition home or self-care (01) | LOC: CR3 16:36 | PROVIDERS: ATTEND Internal Medicine | DX: Z29.8 Encounter for other specified prophylactic measures (principal) ==

== ENCOUNTER → 2017-11-06 | Outpatient (RCR) | payer MEDICARE, OTHER | END | disposition home or self-care (01) | LOC: CR3 10-07 14:36 | PROVIDERS: ATTEND Internal Medicine | DX: Z29.8 Encounter for other specified prophylactic measures (principal) ==

== ENCOUNTER 2017-12-06 16:13 | Outpatient (RCR) | payer MEDICARE, OTHER ==
[~2017-12-06 16:13] MED LIST changes: -AMLO5TAB2 PO; +AMLO5TAB7 PO; -LOSA100T28 PO; +LOSA100T8 PO
== END 2017-12-08 | disposition home or self-care (01) ==
LOC: CR3 16:13
PROVIDERS: ATTEND Internal Medicine
DX: Z29.8 Encounter for other specified prophylactic measures (principal)

== ENCOUNTER → 2018-01-08 | Outpatient (RCR) | payer MEDICARE, OTHER | END | disposition home or self-care (01) | LOC: CR3 12-09 16:00 | PROVIDERS: ATTEND Internal Medicine | DX: Z29.8 Encounter for other specified prophylactic measures (principal) ==

== ENCOUNTER 2018-02-05 15:43 | Outpatient (RCR) | payer MEDICARE, OTHER | END 2018-02-09 | disposition home or self-care (01) | LOC: CR3 15:43 | PROVIDERS: ATTEND Internal Medicine | DX: Z29.8 Encounter for other specified prophylactic measures (principal) ==

== ENCOUNTER → 2018-03-12 | Outpatient (RCR) | payer MEDICARE, OTHER | END | disposition home or self-care (01) | LOC: CR3 02-10 16:00 | PROVIDERS: ATTEND Internal Medicine | DX: Z29.8 Encounter for other specified prophylactic measures (principal) ==

== ENCOUNTER 2018-04-11 15:43 | Outpatient (RCR) | payer MEDICARE, OTHER | END 2018-04-13 | disposition home or self-care (01) | LOC: CR3 15:43 | PROVIDERS: ATTEND Internal Medicine | DX: Z29.8 Encounter for other specified prophylactic measures (principal) ==

== ENCOUNTER 2018-05-12 16:00 | Outpatient (RCR) | payer MEDICARE, OTHER ==
[~2018-05-12 16:00] MED LIST changes: -AMLO5TAB7 PO; +AMLO5TAB9 PO; +LOSA100T57 PO; -LOSA100T8 PO
== END 2018-05-14 | disposition home or self-care (01) ==
LOC: CR3 16:00
PROVIDERS: ATTEND Internal Medicine
DX: Z29.8 Encounter for other specified prophylactic measures (principal)

== ENCOUNTER 2018-06-13 15:15 | Outpatient (RCR) | payer MEDICARE, OTHER | END 2018-06-14 | disposition home or self-care (01) | LOC: CR3 15:15 | PROVIDERS: ATTEND Internal Medicine | DX: Z29.8 Encounter for other specified prophylactic measures (principal) ==

== ENCOUNTER → 2018-07-16 | Outpatient (RCR) | payer MEDICARE, OTHER | END | disposition home or self-care (01) | LOC: CR3 06-16 16:54 | PROVIDERS: ATTEND Internal Medicine | DX: Z29.8 Encounter for other specified prophylactic measures (principal) ==

== ENCOUNTER 2018-07-30 13:46 | Outpatient (RCR) | payer MEDICARE, OTHER ==
[2018-05-02 09:54] LABS: BASOPHILS % (AUTO) 1 % (0-10); EOSINOPHILS # (AUTO) 0.2 10^3/uL (0.0-0.3); EOSINOPHILS % (AUTO) 2 % (0-10); HEMATOCRIT 42 % (40-54); HEMOGLOBIN 14.2 G/DL (13.3-17.7); LYMPHOCYTES # (AUTO) 1.2 X 10^3 (1.0-4.0); LYMPHOCYTES % (AUTO) 16 % (12-44); MEAN CORPUSCULAR HEMOGLOBIN 28 PG (25-34); MEAN CORPUSCULAR HGB CONC 34 G/DL (32-36); MEAN CORPUSCULAR VOLUME 84 FL (80-99); MEAN PLATELET VOLUME 9.9 FL (7.4-10.4); MONOCYTES # (AUTO) 0.5 X 10^3 (0.0-1.0); MONOCYTES % (AUTO) 6 % (0-12); NEUTROPHILS # (AUTO) 5.3 X 10^3 (1.8-7.8); NEUTROPHILS % (AUTO) 75 % (42-75); PLATELET COUNT 168 10^3/uL (130-400); RED CELL DISTRIBUTION WIDTH 14.5 % (10.0-14.5); WHITE BLOOD COUNT 7.1 10^3/uL (4.3-11.0)
[2018-05-02 10:20] LABS: ALANINE AMINOTRANSFERASE 32 U/L (0-55); ALBUMIN 3.9 GM/DL (3.2-4.5); ALKALINE PHOSPHATASE 84 U/L (40-136); BILIRUBIN,TOTAL 0.5 MG/DL (0.1-1.0); BUN/CREATININE RATIO 19; CALCIUM 9.3 MG/DL (8.5-10.1); CARBON DIOXIDE 21 MMOL/L (21-32); CHLORIDE 107 MMOL/L (98-107); CREATININE SERUM 1.06 MG/DL (0.60-1.30); GFR ESTIMATED > 60; GLUCOSE 121 MG/DL (70-105); POTASSIUM 3.8 MMOL/L (3.6-5.0); SODIUM 140 MMOL/L (135-145); TOTAL PROTEIN 6.9 GM/DL (6.4-8.2)
[2018-07-24 11:15] LABS: BASOPHILS % (AUTO) 0 % (0-10); EOSINOPHILS # (AUTO) 0.1 10^3/uL (0.0-0.3); EOSINOPHILS % (AUTO) 2 % (0-10); HEMATOCRIT 42 % (40-54); HEMOGLOBIN 13.9 G/DL (13.3-17.7); LYMPHOCYTES # (AUTO) 1.2 X 10^3 (1.0-4.0); LYMPHOCYTES % (AUTO) 17 % (12-44); MEAN CORPUSCULAR HEMOGLOBIN 29 PG (25-34); MEAN CORPUSCULAR HGB CONC 33 G/DL (32-36); MEAN CORPUSCULAR VOLUME 88 FL (80-99); MEAN PLATELET VOLUME 10.8 FL (7.4-10.4); MONOCYTES # (AUTO) 0.5 X 10^3 (0.0-1.0); MONOCYTES % (AUTO) 7 % (0-12); NEUTROPHILS # (AUTO) 5.3 X 10^3 (1.8-7.8); NEUTROPHILS % (AUTO) 74 % (42-75); PLATELET COUNT 192 10^3/uL (130-400); RED CELL DISTRIBUTION WIDTH 13.9 % (10.0-14.5); WHITE BLOOD COUNT 7.2 10^3/uL (4.3-11.0)
[2018-07-24 11:52] LABS: ALANINE AMINOTRANSFERASE 34 U/L (0-55); ALKALINE PHOSPHATASE 83 U/L (40-136); BILIRUBIN,TOTAL 0.7 MG/DL (0.1-1.0); BUN/CREATININE RATIO 15; CALCIUM 9.6 MG/DL (8.5-10.1); CARBON DIOXIDE 22 MMOL/L (21-32); CHLORIDE 107 MMOL/L (98-107); CREATININE SERUM 0.95 MG/DL (0.60-1.30); GFR ESTIMATED > 60; GLUCOSE 116 MG/DL (70-105); POTASSIUM 3.7 MMOL/L (3.6-5.0); SODIUM 140 MMOL/L (135-145); TOTAL PROTEIN 6.9 GM/DL (6.4-8.2)
== END 2018-07-31 | disposition home or self-care (01) ==
LOC: ONC 13:46
PROVIDERS: ATTEND Internal Medicine Hematology & Oncology
DX: D50.0 Iron deficiency anemia secondary to blood loss (chronic) (principal); I25.10 Atherosclerotic heart disease of native coronary artery without angina pectoris; I10 Essential (primary) hypertension; E78.5 Hyperlipidemia, unspecified; Z79.82 Long term (current) use of aspirin
CPT/HCPCS: 36415; 80053; 82728; 83540; 85025; 99213

== ENCOUNTER → 2018-08-20 | Outpatient (RCR) | payer MEDICARE, OTHER | END | disposition home or self-care (01) | LOC: CR3 07-21 16:00 | PROVIDERS: ATTEND Internal Medicine | DX: Z29.8 Encounter for other specified prophylactic measures (principal) ==

== ENCOUNTER → 2018-09-26 | Outpatient (RCR) | payer MEDICARE, OTHER | END | disposition home or self-care (01) | LOC: CR3 08-27 16:36 | PROVIDERS: ATTEND Internal Medicine | DX: Z29.8 Encounter for other specified prophylactic measures (principal) ==

== ENCOUNTER 2018-10-27 16:31 | Outpatient (RCR) | payer MEDICARE, OTHER | END 2018-10-29 | disposition home or self-care (01) | LOC: CR3 16:31 | PROVIDERS: ATTEND Internal Medicine | DX: Z29.8 Encounter for other specified prophylactic measures (principal) ==

== ENCOUNTER 2018-11-28 13:24 | Outpatient (RCR) | payer MEDICARE, OTHER | END 2018-11-30 | disposition home or self-care (01) | LOC: CR3 13:24 | PROVIDERS: ATTEND Internal Medicine | DX: Z29.8 Encounter for other specified prophylactic measures (principal) ==

== ENCOUNTER 2018-12-17 14:19 | Outpatient (RCR) | payer MEDICARE, OTHER ==
[2018-10-09 14:03] LABS: HEMATOCRIT 39 % (40-54); HEMOGLOBIN 13.2 G/DL (13.3-17.7); MEAN CORPUSCULAR HEMOGLOBIN 29 PG (25-34); MEAN CORPUSCULAR VOLUME 87 FL (80-99); WHITE BLOOD COUNT 7.1 10^3/uL (4.3-11.0)
[2018-10-09 14:04] LABS: BASOPHILS % (AUTO) 0 % (0-10); EOSINOPHILS # (AUTO) 0.2 10^3/uL (0.0-0.3); EOSINOPHILS % (AUTO) 3 % (0-10); LYMPHOCYTES # (AUTO) 1.1 X 10^3 (1.0-4.0); LYMPHOCYTES % (AUTO) 16 % (12-44); MEAN CORPUSCULAR HGB CONC 34 G/DL (32-36); MEAN PLATELET VOLUME 10.9 FL (7.4-10.4); MONOCYTES # (AUTO) 0.5 X 10^3 (0.0-1.0); MONOCYTES % (AUTO) 7 % (0-12); NEUTROPHILS # (AUTO) 5.3 X 10^3 (1.8-7.8); NEUTROPHILS % (AUTO) 74 % (42-75); PLATELET COUNT 187 10^3/uL (130-400); RED CELL DISTRIBUTION WIDTH 13.3 % (10.0-14.5)
[2018-10-09 14:20] LABS: ALBUMIN 3.8 GM/DL (3.2-4.5); BILIRUBIN,TOTAL 0.6 MG/DL (0.1-1.0); CALCIUM 8.8 MG/DL (8.5-10.1); CREATININE SERUM 1.36 MG/DL (0.60-1.30); POTASSIUM 3.9 MMOL/L (3.6-5.0); TOTAL PROTEIN 6.6 GM/DL (6.4-8.2)
[2018-12-10 10:41] LABS: BASOPHILS % (AUTO) 1 % (0-10); EOSINOPHILS # (AUTO) 0.2 10^3/uL (0.0-0.3); EOSINOPHILS % (AUTO) 2 % (0-10); HEMATOCRIT 35 % (40-54); HEMOGLOBIN 11.4 G/DL (13.3-17.7); LYMPHOCYTES % (AUTO) 16 % (12-44); MEAN CORPUSCULAR HEMOGLOBIN 29 PG (25-34); MEAN CORPUSCULAR HGB CONC 33 G/DL (32-36); MEAN CORPUSCULAR VOLUME 88 FL (80-99); MEAN PLATELET VOLUME 10.6 FL (7.4-10.4); MONOCYTES # (AUTO) 0.6 X 10^3 (0.0-1.0); MONOCYTES % (AUTO) 9 % (0-12); NEUTROPHILS # (AUTO) 4.9 X 10^3 (1.8-7.8); NEUTROPHILS % (AUTO) 73 % (42-75); PLATELET COUNT 211 10^3/uL (130-400); RED CELL DISTRIBUTION WIDTH 13.3 % (10.0-14.5); WHITE BLOOD COUNT 6.6 10^3/uL (4.3-11.0)
[2018-12-10 10:54] LABS: ALANINE AMINOTRANSFERASE 20 U/L (0-55); ALBUMIN 3.7 GM/DL (3.2-4.5); ALKALINE PHOSPHATASE 70 U/L (40-136); BILIRUBIN,TOTAL 0.6 MG/DL (0.1-1.0); BUN/CREATININE RATIO 19; CALCIUM 8.7 MG/DL (8.5-10.1); CARBON DIOXIDE 25 MMOL/L (21-32); CHLORIDE 103 MMOL/L (98-107); CREATININE SERUM 1.04 MG/DL (0.60-1.30); GFR ESTIMATED > 60; GLUCOSE 97 MG/DL (70-105); POTASSIUM 3.6 MMOL/L (3.6-5.0); SODIUM 137 MMOL/L (135-145); TOTAL PROTEIN 6.2 GM/DL (6.4-8.2)
== END 2019-01-07 | disposition home or self-care (01) ==
LOC: ONC 14:19
PROVIDERS: ATTEND Internal Medicine Hematology & Oncology
DX: D50.0 Iron deficiency anemia secondary to blood loss (chronic) (principal); I25.10 Atherosclerotic heart disease of native coronary artery without angina pectoris; I10 Essential (primary) hypertension; E78.5 Hyperlipidemia, unspecified; Z79.82 Long term (current) use of aspirin
CPT/HCPCS: 36415; 80053; 82728; 83540; 85025; 99213

== ENCOUNTER 2018-12-31 15:43 | Outpatient (RCR) | payer MEDICARE, OTHER | END 2019-01-02 | disposition home or self-care (01) | LOC: CR3 15:43 | PROVIDERS: ATTEND Internal Medicine | DX: Z29.8 Encounter for other specified prophylactic measures (principal) ==

== ENCOUNTER 2019-01-15 14:18 | Outpatient (RCR) | payer MEDICARE, OTHER ==
[2019-01-12 10:10] LABS: BASOPHILS # (AUTO) 0.1 10^3/uL (0.0-0.1); BASOPHILS % (AUTO) 1 % (0-10); EOSINOPHILS # (AUTO) 0.1 10^3/uL (0.0-0.3); EOSINOPHILS % (AUTO) 2 % (0-10); HEMATOCRIT 40 % (40-54); HEMOGLOBIN 12.9 G/DL (13.3-17.7); LYMPHOCYTES % (AUTO) 15 % (12-44); MEAN CORPUSCULAR HEMOGLOBIN 28 PG (25-34); MEAN CORPUSCULAR HGB CONC 32 G/DL (32-36); MEAN CORPUSCULAR VOLUME 88 FL (80-99); MEAN PLATELET VOLUME 10.8 FL (7.4-10.4); MONOCYTES # (AUTO) 0.5 X 10^3 (0.0-1.0); MONOCYTES % (AUTO) 7 % (0-12); NEUTROPHILS # (AUTO) 5.1 X 10^3 (1.8-7.8); NEUTROPHILS % (AUTO) 76 % (42-75); PLATELET COUNT 225 10^3/uL (130-400); WHITE BLOOD COUNT 6.7 10^3/uL (4.3-11.0)
[2019-01-12 10:39] LABS: BILIRUBIN,TOTAL 0.5 MG/DL (0.1-1.0); CALCIUM 9.3 MG/DL (8.5-10.1); CREATININE SERUM 1.2 MG/DL (0.60-1.30); POTASSIUM 3.8 MMOL/L (3.6-5.0); TOTAL PROTEIN 7.4 GM/DL (6.4-8.2)
== END 2019-04-12 | disposition home or self-care (01) ==
LOC: ONC 14:18
PROVIDERS: ATTEND Internal Medicine Hematology & Oncology
DX: D50.0 Iron deficiency anemia secondary to blood loss (chronic) (principal); I10 Essential (primary) hypertension; E78.5 Hyperlipidemia, unspecified; R58 Hemorrhage, not elsewhere classified; Z79.82 Long term (current) use of aspirin; Z86.79 Personal history of other diseases of the circulatory system; Z87.11 Personal history of peptic ulcer disease; Z90.49 Acquired absence of other specified parts of digestive tract; Z98.890 Other specified postprocedural states
CPT/HCPCS: 36415; 80053; 82728; 83540; 85025; 99213

== ENCOUNTER 2019-02-02 15:51 | Outpatient (RCR) | payer MEDICARE, OTHER | END 2019-02-04 | disposition home or self-care (01) | LOC: CR3 15:51 | PROVIDERS: ATTEND Internal Medicine | DX: Z29.8 Encounter for other specified prophylactic measures (principal) ==

== ENCOUNTER 2019-03-06 16:11 | Outpatient (RCR) | payer MEDICARE, OTHER ==
[~2019-03-06 16:11] MED LIST changes: +EZET10TA17 PO; -EZET10TA5 PO
== END 2019-03-08 | disposition home or self-care (01) ==
LOC: CR3 16:11
PROVIDERS: ATTEND Internal Medicine
DX: Z29.8 Encounter for other specified prophylactic measures (principal)

== ENCOUNTER → 2019-04-08 | Outpatient (RCR) | payer MEDICARE, OTHER ==
[~2019-04-08] MED LIST changes: -EZET10TA17 PO; +EZET10TA5 PO
== END | disposition home or self-care (01) ==
LOC: CR3 03-09 16:00
PROVIDERS: ATTEND Internal Medicine
DX: Z29.8 Encounter for other specified prophylactic measures (principal)

== ENCOUNTER 2019-05-11 15:26 | Outpatient (RCR) | payer MEDICARE, OTHER ==
[~2019-05-11 15:26] MED LIST changes: +EZET10TA17 PO; -EZET10TA5 PO
== END 2019-05-13 | disposition home or self-care (01) ==
LOC: CR3 15:26
PROVIDERS: ATTEND Internal Medicine
DX: Z29.8 Encounter for other specified prophylactic measures (principal)

== ENCOUNTER 2019-05-21 12:44 | Outpatient (RCR) | payer MEDICARE, OTHER ==
[2019-04-06 09:10] LABS: BASOPHILS % (AUTO) 1 % (0-10); EOSINOPHILS # (AUTO) 0.2 10^3/uL (0.0-0.3); EOSINOPHILS % (AUTO) 3 % (0-10); HEMATOCRIT 38 % (40-54); HEMOGLOBIN 11.7 G/DL (13.3-17.7); LYMPHOCYTES # (AUTO) 1.5 X 10^3 (1.0-4.0); LYMPHOCYTES % (AUTO) 21 % (12-44); MEAN CORPUSCULAR HEMOGLOBIN 26 PG (25-34); MEAN CORPUSCULAR HGB CONC 31 G/DL (32-36); MEAN CORPUSCULAR VOLUME 84 FL (80-99); MEAN PLATELET VOLUME 10.7 FL (7.4-10.4); MONOCYTES # (AUTO) 0.5 X 10^3 (0.0-1.0); MONOCYTES % (AUTO) 7 % (0-12); NEUTROPHILS # (AUTO) 4.9 X 10^3 (1.8-7.8); NEUTROPHILS % (AUTO) 69 % (42-75); PLATELET COUNT 204 10^3/uL (130-400); RED CELL DISTRIBUTION WIDTH 14.2 % (10.0-14.5); WHITE BLOOD COUNT 7.1 10^3/uL (4.3-11.0)
[2019-04-06 09:38] LABS: ALANINE AMINOTRANSFERASE 24 U/L (0-55); ALKALINE PHOSPHATASE 78 U/L (40-136); BILIRUBIN,TOTAL 0.4 MG/DL (0.1-1.0); BUN/CREATININE RATIO 19; CALCIUM 8.8 MG/DL (8.5-10.1); CARBON DIOXIDE 23 MMOL/L (21-32); CHLORIDE 105 MMOL/L (98-107); CREATININE SERUM 1.03 MG/DL (0.60-1.30); GFR ESTIMATED > 60; GLUCOSE 121 MG/DL (70-105); POTASSIUM 3.9 MMOL/L (3.6-5.0); SODIUM 139 MMOL/L (135-145); TOTAL PROTEIN 6.8 GM/DL (6.4-8.2)
== END 2019-07-05 | disposition home or self-care (01) ==
LOC: ONC 12:44
PROVIDERS: ATTEND Internal Medicine Hematology & Oncology
DX: D50.0 Iron deficiency anemia secondary to blood loss (chronic) (principal); I10 Essential (primary) hypertension; E78.5 Hyperlipidemia, unspecified; Z87.11 Personal history of peptic ulcer disease; Z86.79 Personal history of other diseases of the circulatory system; Z79.899 Other long term (current) drug therapy; Z90.49 Acquired absence of other specified parts of digestive tract; Z98.890 Other specified postprocedural states
CPT/HCPCS: 80053; 82728; 83540; 85025; 99213

== ENCOUNTER 2019-06-08 16:13 | Outpatient (RCR) | payer MEDICARE, OTHER | END 2019-06-17 | disposition home or self-care (01) | LOC: CR3 16:13 | PROVIDERS: ATTEND Internal Medicine | DX: Z29.8 Encounter for other specified prophylactic measures (principal) ==

== ENCOUNTER 2019-10-27 23:48 | Emergency (ER) | payer MEDICARE, OTHER ==
[~2019-10-27] VITALS: Ht 180 cm; Wt 85.0 kg
[~2019-10-27 23:48] MED LIST changes: +MULT-567 PO; -MULT1TAB69 PO
[2019-10-27] MEDS ORDERED: ATROPINE INJECTION 1 MG/10 ML SYR (ABBOTT) INJ ONE (23:51)
[2019-10-27] MEDS ORDERED: fentaNYL INJECTION 100 MCG/2 ML AMP ONE (23:53)
[2019-10-27] MEDS ORDERED: fentaNYL INJECTION 100 MCG/2 ML AMP IVP STA (23:57)
[2019-10-27] MEDS ORDERED: NS IV 1000 ML 1,000 ML IV SCH (23:57)
[2019-10-28] MEDS ORDERED: ATROPINE INJECTION 1 MG/1 ML SDV IJ ONE
[2019-10-28 00:01] VITALS: BP 190/82
[2019-10-28 00:10] LABS: BASOPHILS % (AUTO) 0 % (0-10); EOSINOPHILS # (AUTO) 0.1 10^3/uL (0.0-0.3); EOSINOPHILS % (AUTO) 1 % (0-10); HEMATOCRIT 38 % (40-54); HEMOGLOBIN 12.7 G/DL (13.3-17.7); LYMPHOCYTES % (AUTO) 16 % (12-44); MEAN CORPUSCULAR HEMOGLOBIN 28 PG (25-34); MEAN CORPUSCULAR HGB CONC 34 G/DL (32-36); MEAN CORPUSCULAR VOLUME 84 FL (80-99); MEAN PLATELET VOLUME 11.4 FL (7.4-10.4); MONOCYTES # (AUTO) 0.9 X 10^3 (0.0-1.0); MONOCYTES % (AUTO) 7 % (0-12); NEUTROPHILS # (AUTO) 9.1 X 10^3 (1.8-7.8); NEUTROPHILS % (AUTO) 75 % (42-75); PLATELET COUNT 181 10^3/uL (130-400); WHITE BLOOD COUNT 12.1 10^3/uL (4.3-11.0)
[2019-10-28 00:12] LABS: ALBUMIN 3.9 GM/DL (3.2-4.5); POTASSIUM 3.8 MMOL/L (3.6-5.0)
[2019-10-28 00:13] LABS: CALCIUM 8.8 MG/DL (8.5-10.1)
[2019-10-28 00:14] LABS: TOTAL PROTEIN 6.7 GM/DL (6.4-8.2)
[2019-10-28 00:16] LABS: BILIRUBIN,TOTAL 0.5 MG/DL (0.1-1.0)
[2019-10-28 00:18] LABS: CREATININE SERUM 1.35 MG/DL (0.60-1.30)
[2019-10-28 00:21] LABS: MAGNESIUM 2.2 MG/DL (1.6-2.4)
[2019-10-28 00:28] LABS: CREATINE KINASE MB 4.5 NG/ML (<6.6)
[2019-10-28] MEDS ORDERED: fentaNYL INJECTION 100 MCG/2 ML AMP IVP STA ×2 (00:37→01:02)
--- NOTE | 2019-10-28 00:40 | NUR ---
[facility] accepted pt transfer at this time.
[2019-10-28 00:42] LABS: TSH (THYROID ANALYZER) 3.86 UIU/ML (0.35-4.94)
[2019-10-28 00:43] LABS: PROTHROMBIN TIME PATIENT 13.8 SEC (12.2-14.7)
--- NOTE | 2019-10-28 06:45 | ED General ---
General Chief Complaint: Cardiac/General Problems Stated Complaint: DIZZY Nursing Triage Note: Pt to [facility] via [facility]. Pt at home, got dizzy and fell. EMS reports bradycardia of 25-50 in route. Pt HR 27 on arrival. Pt denies any CP, SOB. C/O neck pain, c-collar on upon arrival. Pt A&O x 4. Nursing Sepsis Screen: No Definite Risk Source of Information: Patient, EMS History of Present Illness Date Seen by Provider: Oct 27, 2019 Time Seen by Provider: 23:49 Initial Comments PT ARRIVES VIA EMS FROM HOME--C-COLLAR IN PLACE PT STATES HE WAS LAYING IN BED AND BECAME LIGHTHEADED, GOT UP AND PASSED OUT, HITTING HEAD WHEN HE PASSED OUT C/O SEVERE NECK PAIN NO PARESTHESIAS OR MOTOR DEFICITS. NO HEADACHE NO VISION CHANGES NO NAUSEA/VOMITING NO EXTREMITY PAIN OR INJURY EMS REPORT THAT PT HAS SEVERE BRADYCARDIA, IN 20'S-- LOW 19 BPM--NO MEDICATIONS GIVEN. BP WAS 194/100 AT SCENE. O2 SATS IN UPPER 90'S ON ROOM AIR PT WAS VERY DIAPHORETIC AT THE SCENE PT DENIES CHEST PAIN NO SHORTNESS OF BREATH NO PALPITATIONS NO SWELLING IN LEGS/FEET NO INCONTINENCE NO HISTORY OF SIMILAR PT STATES THAT EARLIER TODAY, HE DID GET A LITTLE SHORT OF BREATH WITH MILD EXERTION, AND FELT A LITTLE LIGHTHEADED NO FEVER, NO COUGH OR RECENT ILLNESS PT IS ON ASPIRIN, BUT NO OTHER BLOOD THINNERS PT HAS HAD 3 VESSEL CABG IN 1993, HAS HISTORY OF BLEEDING ULCERS. ALSO HAS HISTORY OF THORACIC AORTIC ANEURYSM--IS BEING FOLLOWED BY HIS BRICK VENEER MAKER, DR. CONN AT [facility] HAS HISTORY OF HTN NO CHANGES IN MEDICATIONS PCP: DR. CASTAÑEDA BRICK VENEER MAKER: DR. CONN, [facility] Allergies and Home Medications Allergies Coded Allergies: No Known Drug Allergies (Verified , 07/11/17) Home Medications Amlodipine Besylate 5 Mg Tablet, 5 MG PO HS, (Reported) Aspirin 81 Mg Tab.chew, 81 MG PO DAILY, (Reported) Ezetimibe 10 Mg Tablet, 10 MG PO DAILY, (Reported) Hydrochlorothiazide 25 Mg Tablet, 25 MG PO DAILY, (Reported) Levothyroxine Sodium 75 Mcg Tablet, 75 MCG PO DAILY, (Reported) Losartan Potassium 100 Mg Tablet, 50 MG PO DAILY, (Reported) TAKES 1/2 OF A (100 MG) TABLET Multivitamin 1 Each Tablet, 1 TAB PO DAILY, (Reported) Pantoprazole Sodium 40 Mg Tablet.dr, 40 MG PO DAILY Prescribed by: NEETA MARTINEZ on 09/03/16 1355 Pravastatin Sodium 20 Mg Tablet, 30 MG PO HS, (Reported) TAKES 1 & 1/2 OF A (20 MG) TABLET Vit A/C/E/Zinc/Co 1 Cap Capsule, 1 CAP PO DAILY, (Reported) Patient Home Medication List Home Medication List Reviewed: Yes Review of Systems Review of Systems Constitutional: see HPI, dizziness EENTM: no symptoms reported; No blurred vision, No double vision, No vision loss, No nose congestion, No throat pain Respiratory: see HPI, dyspnea on exertion; No orthopnea Cardiovascular: see HPI; No chest pain, No edema, No palpitations; syncope, vascular heart diseas Gastrointestinal: no symptoms reported; No abdominal pain, No diarrhea, No nausea, No vomiting Genitourinary: no symptoms reported Musculoskeletal: see HPI; No back pain, No joint pain; neck pain Skin: no symptoms reported Psychiatric/Neurological: See HPI (SYNCOPE); Denies Headache, Denies Numbness, Denies Paresthesia, Denies Seizure, Denies Tingling, Denies Weakness Past Rwcsjcr-Wcqdbv-Hqgneo Hx Past Med/Social Hx: Reviewed and Corrections made Patient Social History Alcohol Use: Rarely Uses Number of Drinks Today: Alcohol Beverage of Choice: Wine Recreational Drug Use: No Smoking Status: Former Smoker Type Used: Cigarettes Former Smoker, Quit: Apr 01, 1994 2nd Hand Smoke Exposure: No Recent Foreign Travel: No Contact w/Someone Who Travel: No Recent Infectious Disease Expo: No Recent Hopitalizations: No Immunizations Up To Date Tetanus Booster (TDap): Unknown PED Vaccines UTD: No Date of Pneumonia Vaccine: Sep 03, 2016 Date of Influenza Vaccine: Jan 14, 2017 Seasonal Allergies Seasonal Allergies: Yes Past Medical History Surgeries: Yes (SEE BELOW) Abdominal, Cardiac, CABG, Gallbladder, Thyroidectomy Respiratory: Yes Sleep Apnea Currently Using CPAP: Yes (NOT EVERY NIGHT) Cardiac: Yes (3 VESSEL CABG 1993; 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) Aneurysm, Coronary Artery Disease, Heart Attack, High Cholesterol, Hypertension Neurological: No (POSS TIA-2012?) Reproductive Disorders: No Sexually Transmitted Disease: No HIV/AIDS: No Genitourinary: No Gastrointestinal: Yes (HX BLEEDING ULCERS;HERNIA REPAIR;APPY; WENDI ) Abdominal Hernia, Gastroesophageal Reflux, Gastrointestinal Bleed, Diverticulosis, Polyps, Ulcer, Gall Bladder Disease Musculoskeletal: No Endocrine: Yes (RIGHT LOBE OF THYROID REMOVED/BENIGN DISEASE ) Hypothyroidsim HEENT: No Loss of Vision: Bilateral Hearing Impairment: Denies Cancer: No Psychosocial: No Integumentary: No 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) Adverse Reaction/Blood Tranf: No (HAS HAD BLOOD WITH NO REACTION) Family Medical History Alcoholism 19 FATHER Arthritis 19 MOTHER Asthma 19 MOTHER Hypertension 19 FATHER Kidney disease 19 FATHER Visual disorder G8 BROTHER G8 SISTER PSH: -3 VESSEL CABG 1993 -RIGHT LOBE OF THYROID REMOVED FOR BENIGN DISEASE -HERNIA REPAIR -APPENDECTOMY -CHOLECYSTECTOMY 2016 -MULTIPLE EGD'S WITH SCLEROTHERAPY OF ULCER -MULTIPLE COLONOSCOPIES WITH POLYPECTOMIES FOR VILLOUS ADENOMAS Physical Exam Vital Signs Vital Signs - First Documented 10/27/19 10/28/19 10/28/19 23:54 00:01 00:02 Temp 36.70909 Pulse 28 Resp B/P (MAP) 190/82 (118) Pulse Ox 93 O2 Delivery Room Air O2 Flow Rate 5.00 Capillary Refill : Less Than 3 Seconds Height, Weight, BMI Height: 6'0.00" Weight: 195lbs. 6.0oz. 88.440132hq; 26.00 BMI Method:Stated General Appearance: No Apparent Distress, WD/WN HEENT: PERRL/EOMI Neck: Other (IN CERVICAL COLLAR. SEVERE POSTERIOR NECK TENDERNESS) Respiratory: Chest Non Tender, Normal Breath Sounds, No Accessory Muscle Use, No Respiratory Distress Cardiovascular: No Edema, No JVD, No Murmur, Normal Peripheral Pulses, Bradycardia (SEVERE--IN 20'S) Gastrointestinal: Normal Bowel Sounds, No Organomegaly, No Pulsatile Mass, Non Tender, Soft Back: No CVA Tenderness Extremity: Normal Capillary Refill, Normal Inspection, Normal Range of Motion, Non Tender, No Calf Tenderness, No Pedal Edema Neurologic/Psychiatric: Alert, Oriented x3, No Motor/Sensory Deficits, Normal Mood/Affect, hand developer II-XII Norm as Tested Skin: Normal Color, Warm/Dry Procedures/Interventions External Pacemaker PT GIVEN ATROPINE, WITH VERY BRIEF IMPROVEMENT IN HR--UP TO 50'S-60, THEN QUICKLY BACK DOWN TO 20'S EXTERNAL PACER PLACED, WITH GOOD CAPTURE--HR UP TO 60'S. BP REMAINED STABLE. Progress/Results/Core Measures Suspected Sepsis Recent Fever Within 48 Hours: No Infection Criteria Present: None New/Unexplained Altered Menta: No Sepsis Screen: No Definite Risk SIRS Temperature:97.2 Pulse: 28 Respiratory Rate: 20 Laboratory Tests 10/27/19 23:53: White Blood Count 12.1H Blood Pressure 190 /82 Mean: 118 Laboratory Tests 10/27/19 23:53: Creatinine 1.35H, INR Comment 1.0, Platelet Count 181, Total Bilirubin 0.5 Results/Orders Lab Results Laboratory Tests Test 10/27/19 23:53 Range/Units White Blood Count 12.1 H 4.3-11.0 10^3/uL Red Blood Count 4.47 4.35-5.85 10^6/uL Hemoglobin 12.7 L 13.3-17.7 G/DL Hematocrit 38 L 40-54 % Mean Corpuscular Volume 84 80-99 FL Mean Corpuscular Hemoglobin 28 25-34 PG Mean Corpuscular Hemoglobin Concent 34 32-36 G/DL Red Cell Distribution Width 14.0 10.0-14.5 % Platelet Count 181 130-400 10^3/uL Mean Platelet Volume 11.4 H 7.4-10.4 FL Neutrophils (%) (Auto) 75 42-75 % Lymphocytes (%) (Auto) 16 12-44 % Monocytes (%) (Auto) 7 0-12 % Eosinophils (%) (Auto) 1 0-10 % Basophils (%) (Auto) 0 0-10 % Neutrophils # (Auto) 9.1 H 1.8-7.8 X 10^3 Lymphocytes # (Auto) 2.0 1.0-4.0 X 10^3 Monocytes # (Auto) 0.9 0.0-1.0 X 10^3 Eosinophils # (Auto) 0.1 0.0-0.3 10^3/uL Basophils # (Auto) 0.0 0.0-0.1 10^3/uL Prothrombin Time 13.8 12.2-14.7 SEC INR Comment 1.0 0.8-1.4 Activated Partial Thromboplast Time 30 24-35 SEC Sodium Level 132 L 135-145 MMOL/L Potassium Level 3.8 3.6-5.0 MMOL/L Chloride Level 102 98-107 MMOL/L Carbon Dioxide Level 18 L 21-32 MMOL/L Anion Gap 12 5-14 MMOL/L Blood Urea Nitrogen 27 H 7-18 MG/DL Creatinine 1.35 H 0.60-1.30 MG/DL Estimat Glomerular Filtration Rate 50 BUN/Creatinine Ratio 20 Glucose Level 168 H 70-105 MG/DL Calcium Level 8.8 8.5-10.1 MG/DL Corrected Calcium 8.9 8.5-10.1 MG/DL Magnesium Level 2.2 1.6-2.4 MG/DL Total Bilirubin 0.5 0.1-1.0 MG/DL Aspartate Amino Transf (AST/SGOT) 41 H 5-34 U/L Alanine Aminotransferase (ALT/SGPT) 46 0-55 U/L Alkaline Phosphatase 84 40-136 U/L Total Creatine Kinase 179 30-200 U/L Creatine Kinase MB 4.5 <6.6 NG/ML Myoglobin 420.3 H 10.0-92.0 NG/ML Troponin I 0.057 H <0.028 NG/ML B-Type Natriuretic Peptide 630.8 H <100.0 PG/ML Total Protein 6.7 6.4-8.2 GM/DL Albumin 3.9 3.2-4.5 GM/DL TSH [place] Testing 3.86 0.35-4.94 UIU/ML My Orders Orders - CHRISSY ALEX DO Fentanyl Injection (Sublimaze Injection (10/27/19 23:53) Ed Iv/Invasive Line Start (10/27/19 23:57) Ekg Tracing (10/27/19 23:57) O2 (10/27/19 23:57) Monitor-Rhythm Ecg Trace Only (10/27/19 23:57) BNP (10/27/19 23:57) Cbc With Automated Diff (10/27/19 23:57) Comprehensive Metabolic Panel (10/27/19 23:57) Creatine Kinase (10/27/19 23:57) Creatine Kinase Mb (10/27/19 23:57) Magnesium (10/27/19 23:57) Protime With Inr (10/27/19 23:57) Partial Thromboplastin Time (10/27/19 23:57) Thyroid Analyzer (10/27/19 23:57) Myoglobin Serum (7/28/20 23:57) Troponin I (10/27/19 23:57) Ed Iv/Invasive Line Start (10/27/19 23:57) Ns Iv 1000 Ml (Sodium Chloride 0.9%) (10/27/19 23:57) Atropine Injection (Atropine Injection) (10/28/19 00:00) Fentanyl Injection (Sublimaze Injection (10/27/19 23:57) Ekg Tracing (10/28/19 00:03) Ct Chest Wo (10/28/19 00:19) Fentanyl Injection (Sublimaze Injection (10/28/19 00:37) Ct Head/Cervical Spine Wo (10/28/19 ) Fentanyl Injection (Sublimaze Injection (10/28/19 01:02) Medications Given in ED Current Medications Medications Dose Ordered Sig/Tejas Route Start Time Stop Time Status Last Admin Dose Admin Atropine Sulfate 1 mg ONCE ONCE IJ 10/28/19 00:00 10/28/19 00:01 DC 10/27/19 23:54 1 MG Vital Signs/I&O 10/27/19 10/28/19 10/28/19 23:54 00:01 00:02 Temp 36.67338 36.2 Pulse 28 Resp 20 B/P (MAP) 190/82 (118) Pulse Ox 93 95 O2 Delivery Room Air Nasal Cannula O2 Flow Rate 5.00 Capillary Refill : Less Than 3 Seconds Blood Pressure Mean: 118 Progress Note : Progress Note CERVICAL COLLAR IN PLACE DURING ENTIRE ER STAY SEE NURSING NOTES FOR DETAILS NO DETERIORATION IN PT'S CONDITION DURING ER STAY ECG Initial ECG Impression Date: Oct 27, 2019 Initial ECG Impression Time: 23:51 Initial ECG Rate: 56 Comment WIDE COMPLEX BRADYCARDIA EKG : EKG Time: 23:55 Rate: 53 Comment WIDE COMPLEX BRADYCARDIA Diagnostic Imaging Comments CT CHEST--QUESTIONABLE FRACTURE OF T8, OTHERWISE NO ACUTE PROCESS, PER [facility] VIA FAX AT 0101. DISCUSSED WITH RADIOLOGIST AT 0112 AND ADDENDUM REGARDING SMALL, 4.2 CM THORACIC AORTIC ANEURYSM WITHOUT ANY EVIDENCE OF LEAK OR DI SSECTION. CT HEAD/CERVICAL SPINE--CT HEAD--NO BLEED OR FRACTURE OR ACUTE PROCESS. C-SPINE WITH COMMINUTED, SEVERELY DISPLACED FRACTURES OF C1 AND C2, PER [facility] RADIOLOGIST VIA PHONE AT 0112, AND VIA FAX AT 0116 Reviewed: Reviewed by Me Critical Care Note Critical Care Total Time (minutes) 60 Departure Communication (Admissions) Family Conversation 0042--CALLED PT'S , LYRIC, AND INFORMED HER OF PT'S CONDITION AND PLAN FOR TRANSPORT. 0029--CALLED [facility], SPOKE WITH DR. RUEDA, ER PHYSICIAN. HE WILL C ONTACT BRICK VENEER MAKER AND NEURO/SPINE SURGEON AND WILL CALL BACK -AIR TRANSPORT BEING ARRANGED WELL 0046--[facility] CALLED BACK. DR. RUEDA HAS DISCUSSED WITH BOTH CARDIOLOGY AND NEURO/SPINE SURGEON AND WILL ACCEPT PT FOR TRANSFER. Impression Primary Impression: SYNCOPE DUE TO SEVERE BRADYCARDIA Additional Impression: COMMINUTED DISPLACED FRACTURES OF C1, C2 Disposition: 02 XFER SHT-TRM HOSP Condition: Stable Transfer Transfer Reason: Exceeds level of care Transfer Facility: [facility] Method of Transfer: Air (MED FLIGHT) Departure-Patient Inst. Referrals: ANH CASTAÑEDA DO (PCP) Primary Care Physician CHRISSY ALEX DO Oct 28, 2019 06:45
--- NOTE | 2019-10-28 07:14 | Diagnostic Imaging Report ---
CLINICAL INDICATION: Patient status post fall. Patient has neck pain and dizziness. Exam: Axial Head CT without IV contrast with sagittal and coronal reformations. Axial CT scan of the cervical spine with sagittal and coronal reformations. Auto Exposure Controls were utilized during the CT exam to meet ALARA standards for radiation dose reduction. Comparison: None. Findings: Head CT: There is no evidence of acute cerebral infarct, intracranial hemorrhage, or gross mass effect. The brain parenchymal volume appears appropriate for patient's age. There is normal gallo-white matter distinction. There is no significant midline shift or herniation. There is no evidence of hydrocephalus. The basal cisterns are unremarkable. The skull, extracranial soft tissue, and orbits are unremarkable. There is minimal ethmoid sinus mucosal thickening. Temporal bones show no significant abnormality. Cervical spine: There is a nondisplaced fracture involving the right of midline anterior arch of the C1 vertebra. There is a multi comminuted and distracted fracture involving the C2 vertebra which also involves the right C2 lateral mass region. The fracture extends through to the C2-C3 endplate with comminuted fracture component of the right pars interarticularis region. There is no fracture of the left pars interarticularis region. The fracture extends through the posterior base of the odontoid process and through the C2 vertebral body. The fracture is distracted by roughly 5 mm in the AP dimension of the body. There is no retrolisthesis seen. The anterior aspect of the C2 vertebra is anterior in relation to the C3 vertebra. There is a nondisplaced fracture involving the right C3 transverse process region which appears to extend through the anterior aspect of the right C3 foramen transversalis. There is multilevel cervical spine vertebral body spurs and facet arthropathy which is hypertrophic on the left side. There is multilevel severe right bony neural foramen narrowing from facet arthropathy seen from the C3 through C6 levels. The left thyroid gland is surgically absent. The right thyroid gland shows no significant abnormality. The neck soft tissue structures show prevertebral soft tissue swelling. Impression: 1: There are multi-comminuted and distracted fractures involving the C2 vertebra which involves the vertebral body, posterior aspect of the odontoid process, and right C2 vertebral body lateral mass/facet regions. This fracture extends through the right foramen transversalis region. CT angiogram of the head and neck is suggested to evaluate for vascular injury. 2: There is a fracture through the right C3 transverse process which extends to the anterior aspect of the right foramen transversalis. CT angiogram would also better evaluate for vascular injury. 3: There is a nondisplaced fracture of the right of midline anterior arch of C1 vertebra. 4: There is no evidence of intracranial hemorrhage or skull fracture. [facility] report did not mention the right C3 transverse process fracture and likely does not significantly change initial management, but I agree with the other cervical spine fractures. Dictated by: Dictated on workstation # [id number]
--- NOTE | 2019-10-28 07:30 | Diagnostic Imaging Report ---
PROCEDURE: CT chest without contrast. TECHNIQUE: Multiple contiguous axial images were obtained through the chest without the use of intravenous contrast. Auto Exposure Controls were utilized during the CT exam to meet ALARA standards for radiation dose reduction. INDICATION: Bradycardia. COMPARISON: None FINDINGS: Cardiomediastinal structures show mild cardiomegaly. There is advanced calcified coronary and moderate scattered calcified aortic atherosclerosis. There is no large pericardial effusion. Small hiatal hernia is noted. Single mildly prominent mediastinal lymph node is identified medial to the azygos vein. It measures 1.5 x 1.6 cm. No abnormal hilar or axillary adenopathy is seen on this noncontrast exam. Evaluation of the lung boyd demonstrates background moderate emphysematous disease. There is no focal consolidation, large effusion, nor pneumothorax. Mild dependent posterior atelectasis is noted. No suspicious pulmonary nodule or mass is identified. Osseous structures show age-related degenerative changes. Flowing bridging multilevel anterior osteophytes are noted. There is focal discontinuity at T8. Included portions of the upper abdomen are unremarkable. IMPRESSION: 1. No acute cardiopulmonary process. 2. Background moderate emphysematous disease. 3. Cardiomegaly. 4. Calcified aortic and coronary atherosclerosis as above. 5. Single mildly prominent mediastinal lymph node of uncertain clinical significance or etiology. 6. Flowing bridging anterior thoracic vertebral body osteophytes with focal discontinuity at T8. Focal discontinuity could represent acute fracture. If there is focal pain in this area, correlation with MRI is recommended. Dictated by: Dictated on workstation # [id number]
== END 2019-10-28 01:31 | disposition short-term general hospital (02) ==
LOC: EDUNIT# 23:48 → ER 23:50
DX: S12.090A Other displaced fracture of first cervical vertebra, initial encounter for closed fracture (principal); S12.190A Other displaced fracture of second cervical vertebra, initial encounter for closed fracture; R00.1 Bradycardia, unspecified; I10 Essential (primary) hypertension; I25.10 Atherosclerotic heart disease of native coronary artery without angina pectoris; I25.2 Old myocardial infarction; E78.00 Pure hypercholesterolemia, unspecified; K21.9 Gastro-esophageal reflux disease without esophagitis; E03.9 Hypothyroidism, unspecified; Z79.890 Hormone replacement therapy; Z79.82 Long term (current) use of aspirin; Z95.1 Presence of aortocoronary bypass graft; Z87.891 Personal history of nicotine dependence; W18.39XA Other fall on same level, initial encounter; W22.8XXA Striking against or struck by other objects, initial encounter; Y92.009 Unspecified place in unspecified non-institutional (private) residence as the place of occurrence of the external cause
CPT/HCPCS: 36415; 70450; 71250; 72125; 80053; 82550; 82553; 83735; 83874; 83880; 84443; 84484; 85025; 85610; 85730; 93005; 93041

== ENCOUNTER 2019-11-23 17:05 | Inpatient (IN) | payer MEDICARE, OTHER ==
[~2019-11-23] VITALS: Ht 182.9 cm; Wt 88.6 kg
[2019-11-23] MEDS ORDERED: NS IV 1000 ML 1,000 ML IV SCH ×2 (17:26→18:01)
[2019-11-23] MEDS ORDERED: VANCOMYCIN INJECTION 750 MG in NS (IVPB) 250 ML IV SCH (17:30)
[2019-11-23] MEDS ORDERED: ACETAMINOPHEN 500 MG TAB (TYLENOL) PO PRN (17:30)
[2019-11-23] MEDS ORDERED: ONDANSETRON 4 MG/2 ML (SDV) Z0FRAN IV PRN (17:30)
[2019-11-23] MEDS ORDERED: CEFEPIME INJECTION 1,000 MG in WATER (STERILE) FOR INJECTION 10 ML IV ONE (17:30)
--- NOTE | 2019-11-23 17:35 | ED General ---
General Stated Complaint: POST HEART CATH/DIZZINESS Source of Information: Patient Exam Limitations: No Limitations (PETER MULLINS) History of Present Illness Date Seen by Provider: Nov 23, 2019 Time Seen by Provider: 17:13 Initial Comments patient arrives ER by private conveyance with chief complaint he feels malaise, weakness dizziness little queasy in his stomach and confused. He said Saturday, 3 days ago he had a heart catheter done by his global logistics manager at [facility]. 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 He went home and followed up today in the clinic and was told everything was okay. When he got home this afternoon he took a nap and woke up about 3:30 feeling very confused and weak. He is not having any dysuria diarrhea or changes in his case buds, sick contacts, shortness of breath, cough fever chills.he is having a very difficult time giving history. Three-vessel bypass in 1993. History of bleeding ulcers. History of thoracic aortic aneurysm followed by global logistics manager Dr. Fagan at [facility]. History of hypertension. PCP Dr. Hall. Surgical history of thyroid lobectomy, cholecystectomy, appendectomy, multiple EGDs and colonoscopies. (PETER MULLINS) Allergies and Home Medications Allergies Coded Allergies: No Known Drug Allergies (Verified , 07/11/17) Home Medications Amlodipine Besylate 5 Mg Tablet, 5 MG PO HS, (Reported) Aspirin 81 Mg Tab.chew, 81 MG PO DAILY, (Reported) Ezetimibe 10 Mg Tablet, 10 MG PO DAILY, (Reported) Hydrochlorothiazide 25 Mg Tablet, 25 MG PO DAILY, (Reported) Levothyroxine Sodium 75 Mcg Tablet, 75 MCG PO DAILY, (Reported) Losartan Potassium 100 Mg Tablet, 50 MG PO DAILY, (Reported) TAKES 1/2 OF A (100 MG) TABLET Multivitamin 1 Each Tablet, 1 TAB PO DAILY, (Reported) Pantoprazole Sodium 40 Mg Tablet., 40 MG PO DAILY Prescribed by: NEETA MARTINEZ on 09/03/16 1510 Pravastatin Sodium 20 Mg Tablet, 30 MG PO HS, (Reported) TAKES 1 & 1/2 OF A (20 MG) TABLET Vit A/C/E/Zinc/Co 1 Cap Capsule, 1 CAP PO DAILY, (Reported) Patient Home Medication List Home Medication List Reviewed: Yes (PETER MULLINS) Review of Systems Review of Systems Constitutional: No chills, No diaphoresis; dizziness; No fever; malaise, weakness EENTM: No ear discharge, No ear pain Respiratory: No cough, No short of breath Cardiovascular: No chest pain, No edema, No palpitations Gastrointestinal: No abdominal pain, No constipation, No diarrhea Genitourinary: No discharge, No dysuria, No frequency Musculoskeletal: No back pain, No joint pain Skin: No pruritus, No rash Psychiatric/Neurological: Denies Headache, Denies Numbness (PETER MULLINS) All Other Systems Reviewed Negative Unless Noted: Yes (PETER MULLINS) Past Geaqgzy-Gdencv-Mexjcl Hx Patient Social History Alcohol Use: Occasionally Uses Alcohol Beverage of Choice: Wine Recreational Drug Use: No Smoking Status: Former Smoker Type Used: Cigarettes Former Smoker, Quit: Apr 01, 1994 2nd Hand Smoke Exposure: No Recent Foreign Travel: No Contact w/Someone Who Travel: No Recent Hopitalizations: No (PETER MULLINS) Immunizations Up To Date Tetanus Booster (TDap): Unknown PED Vaccines UTD: No Date of Pneumonia Vaccine: Sep 03, 2016 Date of Influenza Vaccine: Jan 14, 2017 (PETER MULLINS) Seasonal Allergies Seasonal Allergies: Yes (PETER MULLINS) Past Medical History Surgeries: Yes (SEE BELOW) Abdominal, Cardiac, CABG, Gallbladder, Thyroidectomy Respiratory: Yes Sleep Apnea Currently Using CPAP: Yes (NOT EVERY NIGHT) Cardiac: Yes (3 VESSEL CABG 1993; 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) Aneurysm, Coronary Artery Disease, Heart Attack, High Cholesterol, Hypertension Neurological: No (POSS TIA-2011?) Reproductive Disorders: No Sexually Transmitted Disease: No HIV/AIDS: No Genitourinary: No Gastrointestinal: Yes (HX BLEEDING ULCERS;HERNIA REPAIR;APPY; WENDI ) Abdominal Hernia, Gastroesophageal Reflux, Gastrointestinal Bleed, Diverticulosis, Polyps, Ulcer, Gall Bladder Disease Musculoskeletal: No Endocrine: Yes (RIGHT LOBE OF THYROID REMOVED/BENIGN DISEASE ) Hypothyroidsim HEENT: No Loss of Vision: Bilateral Hearing Impairment: Denies Cancer: No Psychosocial: No Integumentary: No 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 FAGAN (CHRISSY BUENO DO) Physical Exam-Suspected Sepsis Physical Exam Vital Signs Vital Signs - First Documented 11/23/19 11/23/19 11/23/19 17:13 19:00 23:51 Temp 39.0 Pulse 122 Resp 15 B/P (MAP) 154/72 (99) Pulse Ox 90 O2 Delivery Room Air O2 Flow Rate 4.00 FiO2 21 (CHRISSY BUENO DO) Vital Signs Capillary Refill : (PETER MULLINS) Height, Weight, BMI Height: 6'0.00" Weight: 195lbs. 6.0oz. 88.368108by; 26.00 BMI Method:Stated General Appearance: Chronically ill, Moderate Distress Eyes: Bilateral Eye Normal Inspection, Bilateral Eye PERRL, Bilateral Eye EOMI HEENT: PERRL/EOMI, TMs Normal, Normal ENT Inspection; No Moist Mucous Membranes Neck: Full Range of Motion, Normal Inspection Respiratory: Lungs Clear, Normal Breath Sounds, No Accessory Muscle Use, Respiratory Distress (mild with oxygen sats 91% on room air) Cardiovascular: Regular Rate, Rhythm, No Edema, No JVD, Tachycardia Gastrointestinal: Normal Bowel Sounds, No Organomegaly Extremity: Normal Capillary Refill, Normal Inspection, Normal Range of Motion Neurologic/Psychiatric: Alert, No Motor/Sensory Deficits, Normal Mood/Affect, Other (person place and time but not situation) Skin: normal color, warm/dry (PETER MULLINS) Focused Exam Lactate Level 11/23/19 17:25: Lactic Acid Level 1.06 (CHRISSY BUENO DO) Lactic Acid Level (CHRISSY BUENO DO) Progress/Results/Core Measures Suspected Sepsis SIRS Temperature: Pulse: Respiratory Rate: Blood Pressure / Mean: (PETER MULLINS) Results/Orders Lab Results Laboratory Tests Test 11/23/19 17:25 11/23/19 18:30 11/23/19 18:45 11/23/19 19:44 Range/Units White Blood Count 23.4 H 4.3-11.0 10^3/uL Red Blood Count 4.10 L 4.35-5.85 10^6/uL Hemoglobin 11.6 L 13.3-17.7 G/DL Hematocrit 34 L 40-54 % Mean Corpuscular Volume 84 80-99 FL Mean Corpuscular Hemoglobin 28 25-34 PG Mean Corpuscular Hemoglobin Concent 34 32-36 G/DL Red Cell Distribution Width 14.5 10.0-14.5 % Platelet Count 305 130-400 10^3/uL Mean Platelet Volume 9.5 7.4-10.4 FL Neutrophils (%) (Auto) 90 H 42-75 % Lymphocytes (%) (Auto) 3 L 12-44 % Monocytes (%) (Auto) 7 0-12 % Eosinophils (%) (Auto) 0 0-10 % Basophils (%) (Auto) 0 0-10 % Neutrophils # (Auto) 21.1 H 1.8-7.8 X 10^3 Lymphocytes # (Auto) 0.7 L 1.0-4.0 X 10^3 Monocytes # (Auto) 1.6 H 0.0-1.0 X 10^3 Eosinophils # (Auto) 0.0 0.0-0.3 10^3/uL Basophils # (Auto) 0.0 0.0-0.1 10^3/uL Neutrophils % (Manual) 91 % Lymphocytes % (Manual) 2 % Monocytes % (Manual) 6 % Band Neutrophils 1 % Smudge Cells MOD Blood Morphology Comment NORMAL Erythrocyte Sedimentation Rate 40 H 0-30 MM/HR Prothrombin Time 14.9 H 12.2-14.7 SEC INR Comment 1.1 0.8-1.4 Activated Partial Thromboplast Time 36 H 24-35 SEC Sodium Level 129 L 135-145 MMOL/L Potassium Level 3.2 L 3.6-5.0 MMOL/L Chloride Level 91 L 98-107 MMOL/L Carbon Dioxide Level 24 21-32 MMOL/L Anion Gap 14 5-14 MMOL/L Blood Urea Nitrogen 16 7-18 MG/DL Creatinine 1.11 0.60-1.30 MG/DL Estimat Glomerular Filtration Rate > 60 BUN/Creatinine Ratio 14 Glucose Level 127 H 70-105 MG/DL Lactic Acid Level 1.06 0.50-2.00 MMOL/L Calcium Level 8.6 8.5-10.1 MG/DL Corrected Calcium 9.3 8.5-10.1 MG/DL Total Bilirubin 0.8 0.1-1.0 MG/DL Aspartate Amino Transf (AST/SGOT) 24 5-34 U/L Alanine Aminotransferase (ALT/SGPT) 18 0-55 U/L Alkaline Phosphatase 101 40-136 U/L Lactate Dehydrogenase 251 H 125-220 U/L C-Reactive Protein High Sensitivity 13.02 H 0.00-0.50 MG/DL Total Protein 6.4 6.4-8.2 GM/DL Albumin 3.1 L 3.2-4.5 GM/DL Procalcitonin 0.15 H <0.10 NG/ML Coronavirus 2019 (RADU) Negative Negative Urine Color YELLOW Urine Clarity CLEAR Urine pH 7.0 5-9 Urine Specific Gentry 1.010 L 1.016-1.022 Urine Protein NEGATIVE NEGATIVE Urine Glucose (UA) NEGATIVE NEGATIVE Urine Ketones NEGATIVE NEGATIVE Urine Nitrite NEGATIVE NEGATIVE Urine Bilirubin NEGATIVE NEGATIVE Urine Urobilinogen 0.2 < = 1.0 MG/DL Urine Leukocyte Esterase TRACE H NEGATIVE Urine RBC (Auto) NEGATIVE NEGATIVE Urine RBC NONE /HPF Urine WBC 0-2 /HPF Urine Crystals NONE /LPF Urine Bacteria TRACE /HPF Urine Casts NONE /LPF Urine Mucus NEGATIVE /LPF Urine Culture Indicated CULTURE PENDING Test 11/24/19 03:23 Range/Units White Blood Count 19.5 H 4.3-11.0 10^3/uL Red Blood Count 3.66 L 4.35-5.85 10^6/uL Hemoglobin 10.2 L 13.3-17.7 G/DL Hematocrit 31 L 40-54 % Mean Corpuscular Volume 86 80-99 FL Mean Corpuscular Hemoglobin 28 25-34 PG Mean Corpuscular Hemoglobin Concent 33 32-36 G/DL Red Cell Distribution Width 14.4 10.0-14.5 % Platelet Count 237 130-400 10^3/uL Mean Platelet Volume 9.2 7.4-10.4 FL Neutrophils (%) (Auto) 88 H 42-75 % Lymphocytes (%) (Auto) 4 L 12-44 % Monocytes (%) (Auto) 7 0-12 % Eosinophils (%) (Auto) 0 0-10 % Basophils (%) (Auto) 0 0-10 % Neutrophils # (Auto) 17.2 H 1.8-7.8 X 10^3 Lymphocytes # (Auto) 0.8 L 1.0-4.0 X 10^3 Monocytes # (Auto) 1.4 H 0.0-1.0 X 10^3 Eosinophils # (Auto) 0.1 0.0-0.3 10^3/uL Basophils # (Auto) 0.0 0.0-0.1 10^3/uL Sodium Level 134 L 135-145 MMOL/L Potassium Level 3.3 L 3.6-5.0 MMOL/L Chloride Level 99 98-107 MMOL/L Carbon Dioxide Level 25 21-32 MMOL/L Anion Gap 10 5-14 MMOL/L Blood Urea Nitrogen 13 7-18 MG/DL Creatinine 1.02 0.60-1.30 MG/DL Estimat Glomerular Filtration Rate > 60 BUN/Creatinine Ratio 13 Glucose Level 135 H 70-105 MG/DL Calcium Level 7.8 L 8.5-10.1 MG/DL Corrected Calcium 9.0 8.5-10.1 MG/DL Phosphorus Level 4.0 2.3-4.7 MG/DL Magnesium Level 1.7 1.6-2.4 MG/DL Total Bilirubin 0.5 0.1-1.0 MG/DL Aspartate Amino Transf (AST/SGOT) 23 5-34 U/L Alanine Aminotransferase (ALT/SGPT) 15 0-55 U/L Alkaline Phosphatase 85 40-136 U/L Total Protein 5.1 L 6.4-8.2 GM/DL Albumin 2.5 L 3.2-4.5 GM/DL (ABI,CHRISSY K DO) My Orders Orders - ABI,CHRISSY K DO Catheter(Urinary) Insert & Ass 03,15 (11/23/19 18:01) Ed Iv/Invasive Line Start (11/23/19 18:01) Ns Iv 1000 Ml (Sodium Chloride 0.9%) (11/23/19 18:01) Ct Angio Chest W (11/23/19 18:11) Ct Head Wo-R/O Stroke (11/23/19 18:11) Covid 19 Inhouse Test (11/23/19 18:14) Iohexol Injection (Omnipaque 350 Mg/Ml 1 (11/23/19 18:30) Received Contrast (Hold Metformin- Contr (11/23/19 18:30) Ns (Ivpb) (Sodium Chloride 0.9% Ivpb Bag (11/23/19 18:30) D5 Ns 1000 Ml Iv So... W/Potassium Chlor (11/23/19 19:00) Procalcitonin (Pct) (11/23/19 19:08) Hs C Reactive Protein (11/23/19 19:08) Erythrocyte Sedimentation Rate (11/23/19 19:08) LDH (11/23/19 19:08) Coronavirus Sars-Cov-2 So 2018 (11/23/19 19:08) (CHRISSY BUENO DO) Medications Given in ED Current Medications Medications Dose Ordered Sig/Tejas Route Start Time Stop Time Status Last Admin Dose Admin Iohexol 75 ml ONCE ONCE IV 11/23/19 18:30 11/23/19 18:31 DC 11/23/19 19:16 75 ML Sodium Chloride 100 ml ONCE ONCE IV 11/23/19 18:30 11/23/19 18:31 DC 11/23/19 19:16 80 ML (CHRISSY BUENO DO) Vital Signs/I&O 11/23/19 11/23/19 11/23/19 11/23/19 19:00 23:27 23:38 23:41 Temp 37.0 Pulse 73 84 81 Resp 15 13 B/P (MAP) 116/53 113/71 (85) Pulse Ox 94 95 O2 Delivery Nasal Cannula Nasal Cannula Nasal Cannula O2 Flow Rate 4.00 5.00 5.00 11/23/19 11/23/19 11/24/19 11/24/19 23:45 23:51 00:00 00:00 Temp 39.0 Pulse 80 122 76 Resp 12 18 B/P (MAP) 124/65 (84) 118/62 (80) Pulse Ox 97 90 96 O2 Delivery Nasal Cannula Nasal Cannula Nasal Cannula O2 Flow Rate 5.00 5.00 5.00 FiO2 21 11/24/19 11/24/19 11/24/19 11/24/19 00:05 00:15 00:30 00:45 Pulse 85 73 74 Resp 20 11 8 B/P (MAP) 121/63 (82) 114/55 (74) 109/55 (73) Pulse Ox 94 96 97 O2 Delivery Nasal Cannula Nasal Cannula Nasal Cannula Nasal Cannula O2 Flow Rate 5.00 5.00 5.00 5.00 11/24/19 11/24/19 11/24/19 11/24/19 01:00 01:00 02:00 02:50 Pulse 64 64 67 Resp 11 12 B/P (MAP) 112/52 (72) 110/55 (73) Pulse Ox 96 95 94 O2 Delivery Nasal Cannula Nasal Cannula Nasal Cannula O2 Flow Rate 5.00 5.00 5.00 11/24/19 11/24/19 03:00 03:44 Pulse 66 Resp 12 B/P (MAP) 110/56 (74) Pulse Ox 94 95 O2 Delivery Nasal Cannula Nasal Cannula O2 Flow Rate 5.00 5.00 11/24/19 00:00 Intake Total 1010 ml Balance 1010 ml (CHRISSY BUENO DO) Vital Signs/I&O Capillary Refill : (PETER MULLINS) Progress Note : Time: 17:25 Progress Note patient is a c-collar on for cervical spine fracture. We readjusted it as it may have been contributing to his hypoxia. He has non-adventitious lung sounds and no history of cough or shortness of air. No guarding a septic workup with broad-spectrum coverage of cefepime and vancomycin. 1500 cc for a 20 L/kg. After his procedures a urinary tract infection is a very good chance. Plan to pass the case off to Dr. Bueno at shift change. (PETER MULLINS) Progress Note : Progress Note 1800--ASSUMED CARE FROM DR. MULLINS, STUDIES PENDING. O2 SAT IS 90% ON 4L/NC--UP TO 93% ON 5L/NC. ON DIRECT QUESTIONING AT THIS TIME, HE DOES ADMIT TO HAVING A COUGH AND FEELING SHORT OF BREATH FOR THE LAST COUPLE OF DAYS. PT WAS UNAWARE OF FEVER. WILL DO COVID-19 TESTING PERFORMED PT UNABLE TO VOID--BURGOS PLACED WITH IMMEDIATE RETURN OF URINE/CLAMPED AFTER 900 ML. 30 MINUTES LATER, IT WAS UNCLAMPED WITH AN IMMEDIATE RETURN OF 800 ML AND CLAMPED AGAIN, THERE WAS STILL A LARGE RETURN. 1944--ADDITIONAL 800 ML URINE OUT, BURGOS CLAMPED AGAIN (CHRISSY BUENO DO) ECG Initial ECG Impression Date: Nov 23, 2019 Initial ECG Impression Time: 17:21 Initial ECG Rate: 113 Initial ECG Intervals: QT (583) Initial ECG Impression: Nonspecific Changes Comment ventricularly paced rhythm tachycardia. (PETER MULLINS) Diagnostic Imaging Diagonstic Imaging: Xray Plain Films/CT/US/NM/MRI: chest Reviewed: Reviewed by Me (PETER MULLINS) Comments CXR--PER RADIOLOGIST REPORT AT 1829 Findings: Left pectoral transvenous pacemaker has electrodes overlying the right atrium and right ventricle. No fracture of the leads. No pneumothorax or pleural effusion. Left basilar subsegmental atelectasis is present. Stable cardiomegaly with changes of CABG. Advanced degenerative changes of the bilateral glenohumeral joints. Impression: 1. No pneumothorax. 2. Left basilar retrocardiac opacities have decreased since the prior examination and are likely due to atelectasis. CT CHEST ANGIOGRAM--PER RADIOLOGIST REPORT AT 1937 FINDINGS: Vasculature: No pulmonary emboli. No CT evidence of pulmonary hypertension or right ventricular strain. Thoracic aorta is normal in caliber. No aortic dissection or pseudoaneurysm. Heart and mediastinum: Probable left hemithyroidectomy. No supraclavicular, axillary, or intra-thoracic lymphadenopathy. Status post CABG. Left pectoral transvenous pacemaker has electrodes in the right atrium and right ventricle. Pleura: No pleural effusion or pneumothorax. Lungs and airway: No endoluminal lesion in the trachea or central bronchi. Severe centrilobular emphysema is present. No consolidation or groundglass opacities. Upper abdomen: Stable right adrenal nodule likely a benign adenoma. No acute abnormality in the upper abdomen is appreciated. Musculoskeletal: No concerning osseous lesion. IMPRESSION: 1. No pulmonary emboli or acute aortic syndrome. 2. No pulmonary consolidation to suggest pneumonia. 3. No pneumothorax. CT HEAD--PER RADIOLOGIST REPORT AT 1938 FINDINGS: No hyperdense hemorrhage or space-occupying mass. No hydrocephalus or midline shift. Dickens-white matter differentiation is well-preserved. No acute skull fracture. Paranasal sinuses and mastoid air cells are clear. Bilateral cataract surgery has been performed. Nasopharynx unremarkable. IMPRESSION: No acute intracranial process by CT. (CHRISSY BUENO DO) Transfer of Care Transfer of Care Time: 18:00 Care transferred to: Dr Bueno (PETER MULLINS) Departure Communication (Admissions) SPOKE WITH DR. GHOSH, HOSPITALIST, ACCEPTS PT FOR ADMIT. (CHRISSY BUENO DO) Impression Primary Impression: Severe sepsis Additional Impressions: Person under investigation for COVID-19 Altered mental status Electrolyte imbalance Hypoxia RECENT PACEMAKER FOR COMPLETE HEART BLOCK RECENT CERVICAL SPINE FRACTURE Urinary retention Disposition: ADMITTED INPATIENT Condition: Stable Admissions Decision to Admit Reason: Admit from ER (General) Decision to Admit/Date: Nov 23, 2019 Time/Decision to Admit Time: 19:00 (CHRISSY BUENO DO) Departure-Patient Inst. Referrals: ANH HALL DO (PCP/Family) Primary Care Physician PETER MULLINS Nov 23, 2019 17:35 CHRISSY BUENO DO Nov 23, 2019 18:22
[2019-11-23 17:44] LABS: BASOPHILS % (AUTO) 0 % (0-10); EOSINOPHILS % (AUTO) 0 % (0-10); HEMATOCRIT 34 % (40-54); HEMOGLOBIN 11.6 G/DL (13.3-17.7); LYMPHOCYTES # (AUTO) 0.7 X 10^3 (1.0-4.0); LYMPHOCYTES % (AUTO) 3 % (12-44); MEAN CORPUSCULAR HEMOGLOBIN 28 PG (25-34); MEAN CORPUSCULAR HGB CONC 34 G/DL (32-36); MEAN CORPUSCULAR VOLUME 84 FL (80-99); MEAN PLATELET VOLUME 9.5 FL (7.4-10.4); MONOCYTES # (AUTO) 1.6 X 10^3 (0.0-1.0); MONOCYTES % (AUTO) 7 % (0-12); NEUTROPHILS # (AUTO) 21.1 X 10^3 (1.8-7.8); NEUTROPHILS % (AUTO) 90 % (42-75); PLATELET COUNT 305 10^3/uL (130-400); RED CELL DISTRIBUTION WIDTH 14.5 % (10.0-14.5); WHITE BLOOD COUNT 23.4 10^3/uL (4.3-11.0)
[2019-11-23 17:53] LABS: INR 1.1 (0.8-1.4); PROTHROMBIN TIME PATIENT 14.9 SEC (12.2-14.7)
[2019-11-23 18:01] LABS: ALANINE AMINOTRANSFERASE 18 U/L (0-55); ALBUMIN 3.1 GM/DL (3.2-4.5); ALKALINE PHOSPHATASE 101 U/L (40-136); BILIRUBIN,TOTAL 0.8 MG/DL (0.1-1.0); BUN/CREATININE RATIO 14; CALCIUM 8.6 MG/DL (8.5-10.1); CARBON DIOXIDE 24 MMOL/L (21-32); CHLORIDE 91 MMOL/L (98-107); CREATININE SERUM 1.11 MG/DL (0.60-1.30); GFR ESTIMATED > 60; GLUCOSE 127 MG/DL (70-105); POTASSIUM 3.2 MMOL/L (3.6-5.0); SODIUM 129 MMOL/L (135-145); TOTAL PROTEIN 6.4 GM/DL (6.4-8.2)
[2019-11-23 18:03] LABS: BAND NEUTROPHILS 1 %; LYMPHOCYTES % (MANUAL) 2 %; MONOCYTES % (MANUAL) 6 %; NEUTROPHILS % (MANUAL) 91 %; SMUDGE CELLS MOD
[2019-11-23 18:04] LABS: RBC MORPH NORMAL
[2019-11-23] MEDS ORDERED: VANCOMYCIN 1500 MG/NS 500 ML IVPB IV NR ×2 (18:15)
--- NOTE | 2019-11-23 18:24 | Diagnostic Imaging Report ---
CHEST 1 VIEW, AP/PA ONLY Indication: Hypoxia. Recent pacemaker placement. Comparison: 08/26/2016 Findings: Left pectoral transvenous pacemaker has electrodes overlying the right atrium and right ventricle. No fracture of the leads. No pneumothorax or pleural effusion. Left basilar subsegmental atelectasis is present. Stable cardiomegaly with changes of CABG. Advanced degenerative changes of the bilateral glenohumeral joints. Impression: 1. No pneumothorax. 2. Left basilar retrocardiac opacities have decreased since the prior examination and are likely due to atelectasis. Dictated by: Dictated on workstation # [id number]
[2019-11-23] MEDS ORDERED: NS 100 ML (IVPB) BAG IV ONE (18:30)
[2019-11-23] MEDS ORDERED: IOHEXOL 350 MG/ML 100 ML (OMNIPAQUE 350) VIAL IV ONE (18:30)
[2019-11-23] MEDS ORDERED: HOLD METFORMIN - RECEIVED CONTRAST 20 ML VIAL IV SCH (18:30)
--- NOTE | 2019-11-23 18:47 | NUR ---
Metz tubing clamped due to rapid draining. Will continue to monitor.
--- NOTE | 2019-11-23 18:47 | NUR ---
Approximately 800 ml urine out f rosas as soon as inserted.
[2019-11-23 18:56] LABS: BILIRUBIN,URINE NEGATIVE (NEGATIVE); CLARITY,URINE CLEAR; COLOR,URINE YELLOW; GLUCOSE, URINE (UA) NEGATIVE (NEGATIVE); KETONES,URINE NEGATIVE (NEGATIVE); LEUKOCYTE ESTERASE ,URINE TRACE (NEGATIVE); NITRITE,URINE NEGATIVE (NEGATIVE); PROTEIN,URINE NEGATIVE (NEGATIVE)
[2019-11-23] MEDS ORDERED: POTASSIUM CHLORIDE INJ 40 MEQ in D5 NS 1000 ML IV SOLUTION 1,000 ML IV SCH (19:00)
--- NOTE | 2019-11-23 19:13 | NUR ---
Metz unclamped at this time. Approximately 800 ml out at this time. Tubing clamped again. Reported to TINO Lundberg.
--- NOTE | 2019-11-23 19:29 | Diagnostic Imaging Report ---
PROCEDURE: CT head wo r/o stroke. TECHNIQUE: Multiple contiguous axial images were obtained through the brain without the use of intravenous contrast. Auto Exposure Controls were utilized during the CT exam to meet ALARA standards for radiation dose reduction. INDICATION: Neuro deficit COMPARISON: CT head from 10/28/2019. FINDINGS: No hyperdense hemorrhage or space-occupying mass. No hydrocephalus or midline shift. Dickens-white matter differentiation is well-preserved. No acute skull fracture. Paranasal sinuses and mastoid air cells are clear. Bilateral cataract surgery has been performed. Nasopharynx unremarkable. IMPRESSION: No acute intracranial process by CT. Dictated by: Dictated on workstation # [id number]
[2019-11-23 19:30] LABS: BACTERIA,URINE TRACE /HPF; WBC,URINE 0-2 /HPF
--- NOTE | 2019-11-23 19:31 | Diagnostic Imaging Report ---
PROCEDURE: CT angiography Chest TECHNIQUE: After intravenous administration of contrast, thin section axial CT angiography of the chest was performed. 3D MIP reconstructions were made. All CT scans use one or more of the following dose optimizing techniques: automated exposure control, MA and/or KvP adjustment based on a patient size and exam type, or iterative reconstruction. INDICATION: Hypoxia COMPARISON: CT chest of 10/28/2019. FINDINGS: Vasculature: No pulmonary emboli. No CT evidence of pulmonary hypertension or right ventricular strain. Thoracic aorta is normal in caliber. No aortic dissection or pseudoaneurysm. Heart and mediastinum: Probable left hemithyroidectomy. No supraclavicular, axillary, or intra-thoracic lymphadenopathy. Status post CABG. Left pectoral transvenous pacemaker has electrodes in the right atrium and right ventricle. Pleura: No pleural effusion or pneumothorax. Lungs and airway: No endoluminal lesion in the trachea or central bronchi. Severe centrilobular emphysema is present. No consolidation or groundglass opacities. Upper abdomen: Stable right adrenal nodule likely a benign adenoma. No acute abnormality in the upper abdomen is appreciated. Musculoskeletal: No concerning osseous lesion. IMPRESSION: 1. No pulmonary emboli or acute aortic syndrome. 2. No pulmonary consolidation to suggest pneumonia. 3. No pneumothorax. Dictated by: Dictated on workstation # [id number]
--- NOTE | 2019-11-23 19:33 | NUR ---
Report given to TINO Umaña.
--- NOTE | 2019-11-23 20:40 | NUR ---
SPOKE WITH PTS DAUGHTER AND ON PHONE. UPDATED THEM OF PTS PENDING ADMISSION. PER DAUGHTER, PT IS ON A WATER PILL AND RECENTLY PRESCRIBED FLOMAX TO HELP WITH DIFFICULTY URINATING.
[2019-11-23 23:38] VITALS: BP 113/71
[2019-11-23 23:45] VITALS: BP 124/65
[2019-11-23 23:51] VITALS: BP 154/72
[2019-11-24] VITALS (24 sets, daily range): BP systolic 103–132; BP diastolic 52–91
[2019-11-24] MEDS ORDERED: VANCOMYCIN INJECTION 1,000 MG in NS (IVPB) 250 ML IV ONE (00:15)
[2019-11-24] MEDS ORDERED: ACETAMINOPHEN 500 MG TAB (TYLENOL) PO PRN (00:15)
[2019-11-24] MEDS ORDERED: PHARMACY TO DOSE IV ONE (00:15)
[2019-11-24] MEDS ORDERED: NS IV ONE (00:15)
[2019-11-24] MEDS ORDERED: D5 NS W/KCL 40 MEQ/L 1,000 ML IV SCH (00:45)
[2019-11-24] MEDS ORDERED: VASOPRESSIN 20 UNITS/NS 100 ML DRIP IV SCH ×2 (00:45)
[2019-11-24] MEDS: EPINEPHrine 1 MG INJECTION 2 MG in NS (IVPB) 248 ML IV SCH (01:39)
[2019-11-24] MEDS: NOREPINEPHRINE 4 MG/250 ML 250 ML IV SCH ×3 (01:40→20:23)
[2019-11-24] MEDS: CEFEPIME INJECTION 1,000 MG in WATER (STERILE) FOR INJECTION 10 ML IV SCH ×4 (02:21→21:19)
[2019-11-24] MEDS ORDERED: RT-ALBUTEROL INHALER HFA (VENTOLIN HFA) 18 GM IH SCH (03:00)
[2019-11-24] MEDS ORDERED: POTASSIUM CHLORIDE INJ 20 MEQ in D5 NS 1000 ML IV SOLUTION 1,000 ML IV SCH (03:15)
[2019-11-24] MEDS ORDERED: D5 NS W/KCL 20 MEQ/L 1,000 ML IV ONE (03:31)
[2019-11-24 03:43] LABS: BASOPHILS % (AUTO) 0 % (0-10); EOSINOPHILS # (AUTO) 0.1 10^3/uL (0.0-0.3); EOSINOPHILS % (AUTO) 0 % (0-10); HEMATOCRIT 31 % (40-54); HEMOGLOBIN 10.2 G/DL (13.3-17.7); LYMPHOCYTES # (AUTO) 0.8 X 10^3 (1.0-4.0); LYMPHOCYTES % (AUTO) 4 % (12-44); MEAN CORPUSCULAR HEMOGLOBIN 28 PG (25-34); MEAN CORPUSCULAR HGB CONC 33 G/DL (32-36); MEAN CORPUSCULAR VOLUME 86 FL (80-99); MEAN PLATELET VOLUME 9.2 FL (7.4-10.4); MONOCYTES # (AUTO) 1.4 X 10^3 (0.0-1.0); MONOCYTES % (AUTO) 7 % (0-12); NEUTROPHILS # (AUTO) 17.2 X 10^3 (1.8-7.8); NEUTROPHILS % (AUTO) 88 % (42-75); PLATELET COUNT 237 10^3/uL (130-400); RED CELL DISTRIBUTION WIDTH 14.4 % (10.0-14.5); WHITE BLOOD COUNT 19.5 10^3/uL (4.3-11.0)
[2019-11-24 04:03] LABS: CARBON DIOXIDE 25 MMOL/L (21-32); CHLORIDE 99 MMOL/L (98-107); CREATININE SERUM 1.02 MG/DL (0.60-1.30); POTASSIUM 3.3 MMOL/L (3.6-5.0); SODIUM 134 MMOL/L (135-145)
[2019-11-24 04:04] LABS: ALANINE AMINOTRANSFERASE 15 U/L (0-55); ALBUMIN 2.5 GM/DL (3.2-4.5); ALKALINE PHOSPHATASE 85 U/L (40-136); BILIRUBIN,TOTAL 0.5 MG/DL (0.1-1.0); BUN/CREATININE RATIO 13; CALCIUM 7.8 MG/DL (8.5-10.1); GFR ESTIMATED > 60; GLUCOSE 135 MG/DL (70-105); MAGNESIUM 1.7 MG/DL (1.6-2.4); TOTAL PROTEIN 5.1 GM/DL (6.4-8.2)
--- NOTE | 2019-11-24 05:15 | Pulmonary Consultation ---
History of Present Illness History of Present Illness Date Seen by Provider: Nov 24, 2019 Time Seen by Provider: 05:10 Date of Admission History of Present Illness 84yo with hx of CAD and s/p heart cath and pacemaker on Saturday in [place] presented to ED secondary to worsening SOB, cough, weakness, malaise, dizziness, and confusion over the last [address] of head is negative for acute process. Pt dx with severe sepsis in the ED and was admitted to ICU for close observation. COVID is pending. Allergies and Home Medications Allergies Coded Allergies: No Known Drug Allergies (Verified , 07/11/17) Home Medications Amlodipine Besylate 5 Mg Tablet, 5 MG PO HS, (Reported) Aspirin 81 Mg Tab.chew, 81 MG PO DAILY, (Reported) Ezetimibe 10 Mg Tablet, 10 MG PO DAILY, (Reported) Hydrochlorothiazide 25 Mg Tablet, 25 MG PO DAILY, (Reported) Levothyroxine Sodium 75 Mcg Tablet, 75 MCG PO DAILY, (Reported) Losartan Potassium 100 Mg Tablet, 50 MG PO DAILY, (Reported) TAKES 1/2 OF A (100 MG) TABLET Multivitamin 1 Each Tablet, 1 TAB PO DAILY, (Reported) Pantoprazole Sodium 40 Mg Tablet.dr, 40 MG PO DAILY Prescribed by: NEETA MARTINEZ on 09/03/16 1355 Pravastatin Sodium 20 Mg Tablet, 30 MG PO HS, (Reported) TAKES 1 & 1/2 OF A (20 MG) TABLET Vit A/C/E/Zinc/Co 1 Cap Capsule, 1 CAP PO DAILY, (Reported) Past Cxzqjya-Yuxbfs-Obbypb Hx Patient Social History Alcohol Use: Occasionally Uses Number of Drinks Today: Alcohol Beverage of Choice: Wine Recreational Drug Use: No Smoking Status: Former Smoker Type Used: Cigarettes Former Smoker, Quit: Apr 01, 1994 2nd Hand Smoke Exposure: No Recent Foreign Travel: No Contact w/Someone Who Travel: No Recent Infectious Disease Expo: No Recent Hopitalizations: Yes (heart cath) Immunizations Up To Date Tetanus Booster (TDap): Unknown PED Vaccines UTD: No Date of Pneumonia Vaccine: May 02, 2018 Date of Influenza Vaccine: Jan 14, 2017 Seasonal Allergies Seasonal Allergies: Yes Past Medical History Surgeries: Yes (SEE BELOW) Abdominal, Cardiac, CABG, Gallbladder, Thyroidectomy Respiratory: Yes Sleep Apnea Currently Using CPAP: Yes (NOT EVERY NIGHT) Cardiac: Yes (3 VESSEL CABG 1993; 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) Aneurysm, Coronary Artery Disease, Heart Attack, High Cholesterol, Hypertension Neurological: No (POSS TIA-2012?) Reproductive Disorders: No Sexually Transmitted Disease: No HIV/AIDS: No Genitourinary: No Gastrointestinal: Yes (HX BLEEDING ULCERS;HERNIA REPAIR;APPY; WENDI ) Abdominal Hernia, Gastroesophageal Reflux, Gastrointestinal Bleed, Diverticulosis, Polyps, Ulcer, Gall Bladder Disease Musculoskeletal: No Endocrine: Yes (RIGHT LOBE OF THYROID REMOVED/BENIGN DISEASE ) Hypothyroidsim HEENT: No Loss of Vision: Bilateral Hearing Impairment: Denies Cancer: No Psychosocial: No Integumentary: No 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) Adverse Reaction/Blood Tranf: No (HAS HAD BLOOD WITH NO REACTION) Family Medical History Alcoholism 19 FATHER Arthritis 19 MOTHER Asthma 19 MOTHER Hypertension 19 FATHER Kidney disease 19 FATHER Visual disorder G8 BROTHER G8 SISTER PSH: -3 VESSEL CABG 1993 -RIGHT LOBE OF THYROID REMOVED FOR BENIGN DISEASE -HERNIA REPAIR -APPENDECTOMY -CHOLECYSTECTOMY 2016 -MULTIPLE EGD'S WITH SCLEROTHERAPY OF ULCER -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 6.0oz. 88.729823mj; 21.00 BMI Method:Stated Exam Exam Vital Signs Date Time Temp Pulse Resp B/P (MAP) Pulse Ox O2 Delivery O2 Flow Rate FiO2 11/24/19 03:44 95 Nasal Cannula 5.00 11/24/19 03:00 66 12 110/56 (74) 94 Nasal Cannula 5.00 11/24/19 02:50 94 Nasal Cannula 5.00 11/24/19 02:00 67 12 110/55 (73) 95 Nasal Cannula 5.00 11/24/19 01:00 64 11 112/52 (72) 96 Nasal Cannula 5.00 11/24/19 01:00 64 11/24/19 00:45 74 8 109/55 (73) 97 Nasal Cannula 5.00 11/24/19 00:30 73 11 114/55 (74) 96 Nasal Cannula 5.00 11/24/19 00:15 85 20 121/63 (82) 94 Nasal Cannula 5.00 11/24/19 00:05 Nasal Cannula 5.00 11/24/19 00:00 76 18 118/62 (80) 96 Nasal Cannula 5.00 11/24/19 00:00 Nasal Cannula 5.00 11/23/19 23:51 39.0 122 90 21 11/23/19 23:45 80 12 124/65 (84) 97 Nasal Cannula 5.00 11/23/19 23:41 81 11/23/19 23:38 84 13 113/71 (85) 95 Nasal Cannula 5.00 11/23/19 23:27 37.0 73 15 116/53 94 Nasal Cannula 5.00 11/23/19 19:00 Nasal Cannula 4.00 11/23/19 17:13 39.0 122 15 154/72 (99) 90 Room Air I & O 11/24/19 07:00 Intake Total 3705 ml Output Total 1175 ml Balance 2530 ml Height & Weight Height: 6'0.00" Weight: 195lbs. 6.0oz. 88.177798zk; 21.00 BMI Method:Stated General Appearance: Chronically ill, Moderate Distress HEENT: PERRL/EOMI, TMs Normal, Normal ENT Inspection; No Moist Mucous Membranes Neck: Full Range of Motion, Normal Inspection Respiratory: Lungs Clear, Normal Breath Sounds, No Accessory Muscle Use, Respiratory Distress (mild with oxygen sats 91% on room air) Cardiovascular: Regular Rate, Rhythm, No Edema, No JVD, Tachycardia Capillary Refill: Less Than 3 Seconds Extremity: Normal Capillary Refill, Normal Inspection, Normal Range of Motion Neurologic/Psychiatric: Alert, No Motor/Sensory Deficits, Normal Mood/Affect, Other (person place and time but not situation) Results Lab Laboratory Tests 11/23/19 17:25 11/24/19 03:23 Assessment/Plan Assessment/Plan Severe Sepsis -Gautam cultures pending -COVID is pending -Continue Vanco/Zosyn COPDAE with hypoxia -start Combivent -Add advair -Oxygen Anemia -Monitor S/P recent Pacemaker in [place] Recent cervical spine fracture -Continue C Collar -Pt states he has an appt with [facility] doctor on regarding cervical spine fracture WALDEMAR CALLAWAY DO Nov 24, 2019 05:15
[2019-11-24] MEDS ORDERED: RT-ALBUTEROL INHALER HFA (VENTOLIN HFA) 18 GM IH PRN (05:30)
[2019-11-24] MEDS ORDERED: RT-ALBUTEROL/IPRATROPIUM 3 ML (DUONEB) VIAL IH SCH (07:00)
[2019-11-24] MEDS: ALBUTEROL/IPRATROP (COMBIVENT RESPIMAT) 4 GM INHALER INH SCH ×4 (07:52→18:47)
[2019-11-24] MEDS ORDERED: KCL 20 MEQ TAB (K-DUR) PO NR ×2 (08:00→10:00)
--- NOTE | 2019-11-24 09:36 | NUR ---
Received dietary consult for MST Score. Note pt is currently PUI for COVID-19. Will monitor PO intake and have full assessment at later date, pending results. Flor Villegas, MS, RD, LD
[2019-11-24] MEDS: MAGNESIUM 1 GM/100 ML IVPB 100 ML IV SCH ×2 (09:59→10:02)
[2019-11-24] MEDS: ADVAIR HFA 115/21 MCG INHALER 8 GM IH SCH ×2 (11:30→21:02)
[2019-11-24] MEDS ORDERED: CYCL10TA9 PO (11:34)
[2019-11-24] MEDS ORDERED: PANT40TA3 PO (11:34)
[2019-11-24] MEDS ORDERED: LOSA50TA63 PO (11:34)
[2019-11-24] MEDS ORDERED: TMSL.4C PO (11:34)
[2019-11-24] MEDS ORDERED: OXYC5TAB96 PO (11:34)
[2019-11-24] MEDS ORDERED: FERR325T18 PO (11:34)
[2019-11-24] MEDS ORDERED: ASPI-983 PO (11:39)
[2019-11-24] MEDS ORDERED: SENN-36 PO (11:43)
--- NOTE | 2019-11-24 12:10 | NUR ---
SPOKE WITH THE PT (I CALLED HIS ROOM PHONE AND ALSO CALLED HIS DAUGHTER ANDRE) AND WENT THRU THE EXT MED HISTORY TO COMPLETE THE MED REC WHEN I FIRST CALLED HIS ROOM PHONE HE DIDNT ANSWER SO I THEN TRIED TO CALL HIS LYRIC, SHE ANSWERED BUT PASSED ME TO ANDRE WHO HAD A MEDICATION LIST. I GOT ALL THE INFORMATION FROM ANDRE AND THEN TRIED TO CALL TIMOTHY AGAIN. PT ANSWERED THE PHONE AND WAS ABLE TO VERIFY THE INFORMATION. PRAVASTATIN 20: EXT MED HISTORY SHOW 1 & TABS HS BUT PT SAYS HE IS JUST TAKING 1 TAB HS NOW. ALL OTHER MEDICATIONS MATCH THE EXT MED HISTORY OTC MEDS: SENNA PRN ASPIRIN 81MG [employer] PRESERVISION
--- NOTE | 2019-11-24 12:29 | History & Physical-Hospitalist ---
History of Present Illness HPI/Chief Complaint Pt is an 84yoCM with a PMH of CAD, HTN, HLD, and recent pacemaker placement on 11/20 who presented to the ER due to confusion and weakness. He was dischared from [facility] on 11/20 after cardiac cath and pacemaker placement. He states he did well until yesterday afternoon. He took a nap and woke up confused and weak. He was unaware of a fever at home. He denies any sick contacts other than being in the hospital recently. He was found to be febrile on arrival to the ER and placed on COVID precautions. he denies any cough, shortness of breath, diarrhea. He does report poor taste and lack of appetite but this has been going on for a few weeks to over a month. This morning he states he is doing better but still feels weaker than normal and wants to work on his strength. Source: patient Date Seen 11/24/19 Time Seen by a Provider: 12:18 Attending Physician Fox Hall DO PCP Fox Hall DO Referring Physician Date of Admission Nov 23, 2019 at 19:40 Home Medications & Allergies Home Medications Reviewed patient Home Medication Reconciliation performed by pharmacy medication reconciliations medical office technician and/or nursing. Patients Allergies have been reviewed. Allergies Allergies Coded Allergies No Known Drug Allergies (Verified07/11/17) Past Jrrasru-Sqltmx-Grotex Hx Past Med/Social Hx: Reviewed Nursing Past Med/Soc Hx Patient Social History Marrital Status: Employed/Student: retired Alcohol Use: Occasionally Uses Alcohol Beverage of Choice: Wine Recreational Drug Use: No Smoking Status: Former Smoker Former Smoker, Quit: Apr 01, 1994 Type Used: Cigarettes 2nd Hand Smoke Exposure: No Recent Foreign Travel: No Contact w/other who traveled: No Recent Hopitalizations: Yes (heart cath) Recent Infectious Disease Expo: No Immunizations Up To Date Tetanus Booster (TDap): Unknown Pediatric: No Date of Pneumonia Vaccine: May 02, 2018 Date of Influenza Vaccine: Jan 14, 2017 Seasonal Allergies Seasonal Allergies: Yes Past Medical History Surgeries: Abdominal, Cardiac, CABG, Gallbladder, Thyroidectomy Currently Using CPAP: Yes (NOT EVERY NIGHT) Cardiac: Aneurysm, Coronary Artery Disease, Heart Attack, High Cholesterol, Hypertension Reproductive: No Sexually Transmitted Disease: No HIV/AIDS: No Gastrointestinal: Abdominal Hernia, Gastroesophageal Reflux, Gastrointestinal Bleed, Diverticulosis, Polyps, Ulcer, Gall Bladder Disease Endocrine: Hypothyroidsim Loss of Vision: Bilateral Hearing Impairment: Denies History of 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) Adverse Reaction to Blood Bojorquez: No (HAS HAD BLOOD WITH NO REACTION) Family History Reviewed Nursing Family Hx Alcoholism 19 FATHER Arthritis 19 MOTHER Asthma 19 MOTHER Hypertension 19 FATHER Kidney disease 19 FATHER Visual disorder G8 BROTHER G8 SISTER -PACEMAKER PLACED 11/21/[address] [facility] BY DR. CONN Review of Systems Constitutional: No chills; fever, malaise, weakness EENTM: no symptoms reported Respiratory: No cough, No dyspnea on exertion, No short of breath Cardiovascular: see HPI; No chest pain; Hx of Intervention Gastrointestinal: No abdominal pain, No constipation, No diarrhea; loss of appetite; No nausea, No vomiting Genitourinary: No dysuria, No frequency Musculoskeletal: no symptoms reported Skin: no symptoms reported Psychiatric/Neurological: No Symptoms Reported Physical Exam Physical Exam Vital Signs Vital Signs - First Documented 11/23/19 11/23/19 11/23/19 17:13 19:00 23:51 Temp 39.0 Pulse 122 Resp 15 B/P (MAP) 154/72 (99) Pulse Ox 90 O2 Delivery Room Air O2 Flow Rate 4.00 FiO2 21 Capillary Refill : Less Than 3 Seconds Height, Weight, BMI Height: 6'0.00" Weight: 195lbs. 6.0oz. 88.618232yc; 21.00 BMI Method:Stated General Appearance: No Apparent Distress, WD/WN HEENT: PERRL/EOMI, Moist Mucous Membranes; No Scleral Icterus (L), No Scleral Icterus (R) Neck: Normal Inspection, Supple Respiratory: No Accessory Muscle Use, Decreased Breath Sounds (in bases); No Rhonci, No Wheezing; Other (on NC) Cardiovascular: Regular Rate, Rhythm, No JVD, No Murmur Gastrointestinal: Normal Bowel Sounds, Non Tender, Soft Extremity: Normal Capillary Refill, No Calf Tenderness, No Pedal Edema Neurologic/Psychiatric: Alert, Oriented x3, Normal Mood/Affect; No Aphasia, No Facial Droop Skin: Normal Color, Warm/Dry, Other (pacemaker incision site without erythema or oozing) Results Results/Procedures Labs Laboratory Tests 11/23/19 17:25 11/24/19 03:23 Patient resulted labs reviewed. Imaging [facility], [place] NAME: TIMOTHY BARDALES [facility] REC#: [id number] PT STATUS: REG ER : 1935 PHYSICIAN: PETER MULLINS MD ADMIT DATE: 11/23/19/ER Signed Date of Exam:11/23/19 CHEST 1 VIEW, AP/PA ONLY CHEST 1 VIEW, AP/PA ONLY Indication: Hypoxia. Recent pacemaker placement. Comparison: 08/26/2016 Findings: Left pectoral transvenous pacemaker has electrodes overlying the right atrium and right ventricle. No fracture of the leads. No pneumothorax or pleural effusion. Left basilar subsegmental atelectasis is present. Stable cardiomegaly with changes of CABG. Advanced degenerative changes of the bilateral glenohumeral joints. Impression: 1. No pneumothorax. 2. Left basilar retrocardiac opacities have decreased since the prior examination and are likely due to atelectasis. Dictated by: Dictated on workstation # [id number] Dict: 11/23/19 1819 Trans: 11/23/192006 [facility] [id number] Interpreted by: GILL MENDOZA MD Electronically signed by: GILL MENDOZA MD 11/23/192006 [facility] [place] NAME: TIMOTHY BARDALES [facility] REC#: [id number] PT STATUS: REG ER : 1935 PHYSICIAN: CHRISSY ALEX DO ADMIT DATE: 11/23/19/ER Signed Date of Exam:11/23/19 CT HEAD WO-R/O STROKE PROCEDURE: CT head wo r/o stroke. TECHNIQUE: Multiple contiguous axial images were obtained through the brain without the use of intravenous contrast. Auto Exposure Controls were utilized during the CT exam to meet ALARA standards for radiation dose reduction. INDICATION: Neuro deficit COMPARISON: CT head from 10/28/2019. FINDINGS: No hyperdense hemorrhage or space-occupying mass. No hydrocephalus or midline shift. Dcikens-white matter differentiation is well-preserved. No acute skull fracture. Paranasal sinuses and mastoid air cells are clear. Bilateral cataract surgery has been performed. Nasopharynx unremarkable. IMPRESSION: No acute intracranial process by CT. Dictated by: Dictated on workstation # [id number] Dict: 11/23/191917 Trans: 11/23/192006 [facility] [id number] Interpreted by: GILL MENDOZA MD Electronically signed by: GILL MENDOZA MD 11/23/192006 [facility] [place] NAME: TIMOTHY BARDALES [facility] REC#: [id number] PT STATUS: REG ER : 1935 PHYSICIAN: CHRISSY ALEX DO ADMIT DATE: 11/23/19/ER Signed Date of Exam:11/23/19 CT ANGIO CHEST W PROCEDURE: CT angiography Chest TECHNIQUE: After intravenous administration of contrast, thin section axial CT angiography of the chest was performed. 3D MIP reconstructions were made. All CT scans use one or more of the following dose optimizing techniques: automated exposure control, MA and/or KvP adjustment based on a patient size and exam type, or iterative reconstruction. INDICATION: Hypoxia COMPARISON: CT chest of 10/28/2019. FINDINGS: Vasculature: No pulmonary emboli. No CT evidence of pulmonary hypertension or right ventricular strain. Thoracic aorta is normal in caliber. No aortic dissection or pseudoaneurysm. Heart and mediastinum: Probable left hemithyroidectomy. No supraclavicular, axillary, or intra-thoracic lymphadenopathy. Status post CABG. Left pectoral transvenous pacemaker has electrodes in the right atrium and right ventricle. Pleura: No pleural effusion or pneumothorax. Lungs and airway: No endoluminal lesion in the trachea or central bronchi. Severe centrilobular emphysema is present. No consolidation or groundglass opacities. Upper abdomen: Stable right adrenal nodule likely a benign adenoma. No acute abnormality in the upper abdomen is appreciated. Musculoskeletal: No concerning osseous lesion. IMPRESSION: 1. No pulmonary emboli or acute aortic syndrome. 2. No pulmonary consolidation to suggest pneumonia. 3. No pneumothorax. Dictated by: Dictated on workstation # [id number] Dict: 11/23/191919 Trans: 11/23/1920060117 Interpreted by: GILL MENDOZA MD Electronically signed by: GILL MENDOZA MD 11/23/192006 Assessment/Plan Admission Diagnosis Sepsis Admission Status: Inpatient Order (span 2 midnights) Reason for Inpatient Admission: IV abx, await cultures, was just admitted at the hospital and discharged 2 days ago Assessment and Plan Sepsis Unknown source at this time Await cultures Continue IV abx for now COVID pending CAD HTN reported complete heart block with recent pacemaker placement Request records from [facility] looks good COPDAE Acute hypoxic respiratory failure Pulm consulted, appreciate recs Continue Advair and Combivent Wean oxygen as able Continue Decadron Anemia Last colonoscopy/EGD in 2018 Showed gastric ulcer and resolved esophagitis Trend Hypokalemia Replaced per protocol DVT ppx: Diagnosis/Problems Diagnosis/Problems (1) CAD (coronary artery disease) Status: Chronic Qualifiers: Coronary Disease-Associated Artery/Lesion type: [place] artery [place] vs. transplanted heart: [place] heart Associated angina: without angina Qualified Codes: I25.10 - Atherosclerotic heart disease of [place] coronary artery without angina pectoris (2) Cardiac pacemaker Status: Acute (3) Hypokalemia Status: Acute (4) Hypothyroidism Status: Chronic Qualifiers: Hypothyroidism type: postoperative Qualified Codes: E89.0 - Postprocedural hypothyroidism (5) Severe sepsis Status: Acute (6) Person under investigation for COVID-19 Status: Acute (7) Altered mental status Status: Acute Qualifiers: Altered mental status type: delirium Qualified Codes: R41.0 - Disorientation, unspecified (8) Hypoxia Status: Acute (9) Iron deficiency anemia Qualifiers: Iron deficiency anemia type: unspecified iron deficiency Qualified Codes: D50.9 - Iron deficiency anemia, unspecified (10) Urinary retention Status: Acute Clinical Quality Measures DVT/VTE Risk/Contraindication: Risk Factor Score Per Nursin RFS Level Per Nursing on Admit: 4+=Very High MARIO PARK MD Nov 24, 2019 12:29
--- NOTE | 2019-11-24 13:56 | Physical Therapy Evaluation ---
PT Evaluation-General Medical Diagnosis Admission Date Nov 23, 2019 at 19:40 Medical Diagnosis: severe sepsis/PUI Onset Date: Nov 23, 2019 Therapy Diagnosis Therapy Diagnosis: debility/weakness Height/Weight Height (Feet): 6 Height (Inches): 0.00 Weight (Pounds): 195 Weight (Ounces): 6.0 Precautions Precautions/Isolations: Airborne Isolation, Droplet Isolation, Fall Prevention Weight Bear Status Right Lower Extremity: Right Weight Bearing/Tolerated Left Lower Extremity: Left Weight Bearing/Tolerated Referral Physician: Caterina Reason for Referral: Evaluation/Treatment Medical History Pertinent Medical History: CABG, CAD, HTN, Hypothroidism, OR Additional Medical History pacemaker Current History ER secondary to malaise, weakness, dizziness, confusion (heart cath 4 days ago per report) Reviewed History: Yes Social History Home: Single Level Current Living Status: Spouse Entry Into Home: Stairs With Railing PT Steps Into Home: 2 Prior Prior Level of Function SCALE: Activities may be completed with or without assistive devices. 5-Zipbuqaryj-jsoyjmw completes the activity by him/herself with no assistance from a helper. 5-Set-up or Clean-up Assistance-helper sets up or cleans up; patient completes activity. [place]on assists only prior to or following the activity. 4-Supervision or Touching Assistance-helper provides verbal cues and/or touching/steadying and/or contact guard assistance as patient completes activity. Assistance may be provided throughout the activity or intermittently. 3-Partial/Moderate Assistance-helper does LESS THAN HALF the effort. [place]on lifts, holds or supports trunk or limbs, but provides less than half the effort. 2-Substantial/Maximal Assistance-helper does MORE THAN HALF the effort. [place]on lifts or holds trunk or limbs and provides more than half the effort. 0-Bnzucwbvk-hgberu does ALL the effort. Patient does none of the effort to complete the activity. Or, the assistance of 2 or more helpers is required for the patient to complete the activity. If activity was not attempted, code reason: 7-Patient Refused. 9-Not Applicable-not attempted and the patient did not perform the activity before the current illness, exacerbation or injury. 10-Not Attempted due to Environmental Limitations-(lack of equipment, weather restraints, etc.). 88-Not Attempted due to Medical Conditions or Safety Concerns. Bed Mobility: 6 Transfers (B,C,W/C): 6 Gait: 6 Stairs: 6 Indoor Mobility (Ambulation): Independent Stairs: Independent Prior Devices Use: Other-see list below Prior Device Use: cane or none PT Evaluation-Current Subjective Patient is currently up to toilet. Pain Numeric Pain Scale: 5-Moderate Pain Location: Soft Tissue Location Body Site: Neck Pain Description: Ache Objective Patient Orientation: Normal For Age Attachments: Oxygen, Metz Catheter, IV Sensory Vision: Functional Hearing: Functional Transfers Roll Left to Right (QC): 6 Sit to Lying (QC): 6 Lying to Sitting/Side of Bed(Q: 6 Sit to Stand (QC): 6 Toilet Transfer (QC): 6 Gait Does the Patient Walk?: Yes Mode of Locomotion: Walk Anticipated Mode of Locomotion: Walk Walk 10 feet (QC): 6 Gait Assistive Device: None Comments/Gait Description able to negotiate stepping over obstacles to attain safe sitting EOB from toileting independently Balance Sitting Static: Normal Sitting Dynamic: Normal Standing Static: Normal Standing Dynamic: Normal Assessment/Needs PT will see patient short term to address functional mobility. Patient reports he uses a cane occasionally. Rehab Potential: Fair PT Short Term Goals Short Term Goals Time Frame: Nov 27, 2019 Roll Left & Right: 6 Sit to lyin Lying to sitting on side of be: 6 Sit to stand: 6 Chair/lvi-rp-azzlp transfer: 6 Toilet transfer: 6 Walk 10 feet: 6 Walk 50 feet with two turns: 6 Walk 150 feet: 6 PT Plan Treatment/Plan Treatment Plan: Continue Plan of Care Treatment Plan: Education, Functional Activity Kanwal, Gait, Therapeutic Exercise Treatment Duration: Nov 27, 2019 Frequency: 4 times per week Estimated Hrs Per Day: .25 hour per day Patient and/or Family Agrees t: Yes Discharge Recommendations Therapy Discharge Recommendati: Home & Family Time/GCodes Time In: 1335 Time Out: 1345 Total Billed Treatment Time: 10 Total Billed Treatment 1 visit EVLowC 10 min PABLITO CHAIREZ PT Nov 24, 2019 13:56
[2019-11-24] MEDS: D5 NS W/KCL 20 MEQ/L 1,000 ML IV SCH ×3 (14:10→21:19)
--- NOTE | 2019-11-24 14:43 | Occ Therapy Progress Note ---
Therapy Progress Note OT order received, chart reviewed. OT spoke with PT, who did assess pt. first. Pt. ambulated in room, to and from toilet independently. Pt. able to toilet self, and untangle 02 line with no difficulty. Able to manage obstacles in room and step over lines. Pt. able to get into bed and position self with no difficulty. PT's screen indicates no functional OT needs at this time. However, will check on pt. tomorrow and will assess any possible issues overnight. Thank you for this referral. 144ENSTOR CAMPOS OT Nov 24, 2019 14:42
[2019-11-24] MEDS: TAMSULOSIN 0.4 MG (FLOMAX) CAP PO SCH (15:46)
[2019-11-24] MEDS ORDERED: FLUTICASONE NASAL SPRAY (FLONASE) 16 GM BTL NS PRN (17:45)
[2019-11-24] MEDS: FLUTICASONE NASAL SPRAY (FLONASE) 16 GM BTL NS PRN (18:43)
[2019-11-24] MEDS ORDERED: VANCOMYCIN 1500 MG/NS 500 ML IVPB IV SCH ×2 (20:00)
[2019-11-24] MEDS ORDERED: NON-FORMULARY MEDICATION 1 EA EA (Pravastatin Sodium 20 MG) PO SCH (21:00)
[2019-11-24] MEDS: PANTOPRAZOLE 40 MG (PROTONIX) TAB PO SCH (21:19)
[2019-11-24] MEDS: SIMvastatin 10 MG (ZOCOR) TAB PO SCH (21:19)
--- NOTE | 2019-11-24 22:00 | NUR ---
PATIENT UP TO TOILET, UNABLE TO VOID BLADDER, PATIENT REFUSED BURGOS AT THIS TIME.
--- NOTE | 2019-11-24 23:38 | NUR ---
2332 CALLED E-ICU REGARDING DECREASED URINE OUTPUT, BURGOS REMOVED AT 1800 NO URINE OUTPUT SINCE DESPITE MULTIPLE PROMPTS AND ATTEMPTS. BLADDER SCAN SHOWED 349MLS, ORDER RECEIVED TO STRAIGHT CATH AND NOTIFY DR RODRIGUEZ IF RETENTION CONTINUES.
[2019-11-25] VITALS (11 sets, daily range): BP systolic 121–142; BP diastolic 62–71
[2019-11-25] MEDS: EPINEPHrine 1 MG INJECTION 2 MG in NS (IVPB) 248 ML IV SCH (00:45)
[2019-11-25] MEDS: D5 NS W/KCL 20 MEQ/L 1,000 ML IV SCH (02:02)
[2019-11-25 03:21] LABS: BASOPHILS % (AUTO) 0 % (0-10); EOSINOPHILS % (AUTO) 0 % (0-10); HEMATOCRIT 34 % (40-54); LYMPHOCYTES # (AUTO) 0.7 X 10^3 (1.0-4.0); LYMPHOCYTES % (AUTO) 3 % (12-44); MEAN CORPUSCULAR HEMOGLOBIN 28 PG (25-34); MEAN CORPUSCULAR HGB CONC 33 G/DL (32-36); MEAN CORPUSCULAR VOLUME 86 FL (80-99); MEAN PLATELET VOLUME 9.9 FL (7.4-10.4); MONOCYTES # (AUTO) 1.1 X 10^3 (0.0-1.0); MONOCYTES % (AUTO) 5 % (0-12); NEUTROPHILS # (AUTO) 21.6 X 10^3 (1.8-7.8); NEUTROPHILS % (AUTO) 92 % (42-75); PLATELET COUNT 264 10^3/uL (130-400); RED CELL DISTRIBUTION WIDTH 14.1 % (10.0-14.5); WHITE BLOOD COUNT 23.4 10^3/uL (4.3-11.0)
[2019-11-25 03:42] LABS: ALANINE AMINOTRANSFERASE 18 U/L (0-55); ALBUMIN 2.7 GM/DL (3.2-4.5); ALKALINE PHOSPHATASE 101 U/L (40-136); BILIRUBIN,TOTAL 0.4 MG/DL (0.1-1.0); BUN/CREATININE RATIO 16; CALCIUM 7.8 MG/DL (8.5-10.1); CARBON DIOXIDE 21 MMOL/L (21-32); CHLORIDE 102 MMOL/L (98-107); CREATININE SERUM 0.94 MG/DL (0.60-1.30); GFR ESTIMATED > 60; GLUCOSE 142 MG/DL (70-105); PHOSPHORUS 2.6 MG/DL (2.3-4.7); POTASSIUM 4.3 MMOL/L (3.6-5.0); SODIUM 134 MMOL/L (135-145); TOTAL PROTEIN 5.7 GM/DL (6.4-8.2)
[2019-11-25] MEDS: CEFEPIME INJECTION 1,000 MG in WATER (STERILE) FOR INJECTION 10 ML IV SCH ×4 (04:24→21:49)
[2019-11-25] MEDS: NOREPINEPHRINE 4 MG/250 ML 250 ML IV SCH (05:04)
[2019-11-25] MEDS: POTASSIUM CL 10MEQ/50ML IVPB 50 ML IV SCH (05:05)
[2019-11-25] MEDS: KCL 20 MEQ TAB (K-DUR) PO SCH (05:05)
[2019-11-25] MEDS: MAGNESIUM 1 GM/100 ML IVPB 100 ML IV SCH (05:05)
--- NOTE | 2019-11-25 05:50 | Pulmonary Progress Note ---
Subjective Time Seen by a Provider: 05:45 Sepsis Event Evaluation Height, Weight, BMI Height: 6'0.00" Weight: 195lbs. 6.0oz. 88.473266tk; 21.00 BMI Method:Stated Focused Exam Lactate Level 11/23/19 17:25: Lactic Acid Level 1.06 Exam Exam Vital Signs Date Time Temp Pulse Resp B/P (MAP) Pulse Ox O2 Delivery O2 Flow Rate FiO2 11/25/19 04:00 95 Nasal Cannula 3.00 11/25/19 04:00 65 6 123/62 (82) 93 Nasal Cannula 3.00 11/25/19 04:00 36.0 11/25/19 03:00 64 7 121/62 (81) 93 Nasal Cannula 3.00 11/25/19 02:00 73 13 142/67 (92) 96 Nasal Cannula 3.00 11/25/19 01:00 70 17 135/63 (87) 93 Nasal Cannula 3.00 11/25/19 01:00 70 11/25/19 00:00 71 24 132/64 (86) 93 Nasal Cannula 3.00 11/25/19 00:00 Nasal Cannula 3.00 11/24/19 23:45 65 14 132/67 (88) 94 Nasal Cannula 3.00 11/24/19 23:00 88 28 90 Nasal Cannula 3.00 11/24/19 22:00 66 17 92 Nasal Cannula 3.00 11/24/19 21:13 89 19 126/61 (82) 95 Nasal Cannula 3.00 11/24/19 21:03 98 Nasal Cannula 3.00 11/24/19 20:00 36.1 11/24/19 20:00 97 Nasal Cannula 3.00 11/24/19 20:00 72 17 114/60 (78) 92 Nasal Cannula 3.00 11/24/19 19:00 75 11/24/19 19:00 75 14 114/56 (75) 95 Nasal Cannula 3.00 11/24/19 18:48 96 Nasal Cannula 3.00 11/24/19 18:00 71 13 119/67 (84) 96 Nasal Cannula 3.00 11/24/19 17:00 80 25 119/63 (81) 95 Nasal Cannula 3.00 11/24/19 16:00 96 Nasal Cannula 3.00 11/24/19 16:00 101 9 127/91 (103) 97 Nasal Cannula 3.00 11/24/19 16:00 36.4 11/24/19 15:43 94 Nasal Cannula 3.00 11/24/19 15:00 129 14 103/54 (70) 92 Nasal Cannula 5.00 11/24/19 14:00 72 14 112/55 (74) 95 Nasal Cannula 5.00 11/24/19 13:01 98 11/24/19 13:00 103 17 118/57 (77) 95 Nasal Cannula 5.00 11/24/19 12:00 97 Nasal Cannula 5.00 11/24/19 12:00 71 19 118/57 (77) 90 Nasal Cannula 5.00 11/24/19 11:30 95 Nasal Cannula 5.00 11/24/19 11:00 79 16 95 Nasal Cannula 5.00 11/24/19 10:00 77 14 92 Nasal Cannula 5.00 11/24/19 09:00 99 17 121/68 (85) 96 Nasal Cannula 5.00 11/24/19 08:11 97 Nasal Cannula 5.00 11/24/19 08:00 37.3 11/24/19 08:00 102 20 118/59 (78) 95 Nasal Cannula 5.00 11/24/19 07:12 82 11/24/19 07:00 80 14 123/57 (79) 93 Nasal Cannula 5.00 11/24/19 06:00 81 16 124/57 (79) 96 Nasal Cannula 5.00 I & O 11/25/19 07:00 Intake Total 3075 ml Output Total 1025 ml Balance 2050 ml Height & Weight Height: 6'0.00" Weight: 195lbs. 6.0oz. 88.473336lc; 21.00 BMI Method:Stated General Appearance: No Apparent Distress, WD/WN HEENT: PERRL/EOMI, Moist Mucous Membranes; No Scleral Icterus (L), No Scleral Icterus (R) Neck: Normal Inspection, Supple Respiratory: No Accessory Muscle Use, Decreased Breath Sounds (in bases); No Rhonci, No Wheezing; Other (on NC) Cardiovascular: Regular Rate, Rhythm, No JVD, No Murmur Capillary Refill: Less Than 3 Seconds Extremity: Normal Capillary Refill, No Calf Tenderness, No Pedal Edema Neurologic/Psychiatric: Alert, Oriented x3, Normal Mood/Affect; No Aphasia, No Facial Droop Skin: Normal Color, Warm/Dry, Other (pacemaker incision site without erythema or oozing) Results Lab Laboratory Tests 11/23/19 17:25 11/24/19 03:23 11/25/19 02:35 Assessment/Plan Assessment/Plan Severe Sepsis -Gautam cultures pending -COVID is pending -Continue Vanco/Cefepime COPDAE with hypoxia Combivent -Add advair -Oxygen Anemia -Monitor S/P recent Pacemaker in [place] Recent cervical spine fracture -Continue C Collar -Pt states he has an appt with [facility] doctor on regarding cervical spine fracture WALDEMAR CALLAWAY DO Nov 25, 2019 05:50
--- NOTE | 2019-11-25 06:00 | NUR ---
DR CALLAWAY NOTIFIED OF PATIENT URINARY RETENTION, BLADDER SCANNED X2 WITH 349ML AND 181ML RESPECTIVELY. NEW ORDER RECEIVED FOR BURGOS CATH INSERTION. PATIENT EDUCATED AT THIS TIME, CONSENTS TO BURGOS AT THIS TIME. BURGOS PLACED, PATIENT STATES RELIEF OF BLADDER DISTENTION AT THIS TIME.
[2019-11-25] MEDS: LEVOTHYROXINE 75 MCG (LEVOTHROID) TABLET PO SCH (06:06)
--- NOTE | 2019-11-25 06:17 | Pulmonary Progress Note ---
Subjective Time Seen by a Provider: 06:14 Sepsis Event Evaluation Height, Weight, BMI Height: 6'0.00" Weight: 195lbs. 6.0oz. 88.118729zx; 21.00 BMI Method:Stated Focused Exam Lactate Level 11/23/19 17:25: Lactic Acid Level 1.06 Exam Exam Vital Signs Date Time Temp Pulse Resp B/P (MAP) Pulse Ox O2 Delivery O2 Flow Rate FiO2 11/25/19 04:00 95 Nasal Cannula 3.00 11/25/19 04:00 65 6 123/62 (82) 93 Nasal Cannula 3.00 11/25/19 04:00 36.0 11/25/19 03:00 64 7 121/62 (81) 93 Nasal Cannula 3.00 11/25/19 02:00 73 13 142/67 (92) 96 Nasal Cannula 3.00 11/25/19 01:00 70 17 135/63 (87) 93 Nasal Cannula 3.00 11/25/19 01:00 70 11/25/19 00:00 71 24 132/64 (86) 93 Nasal Cannula 3.00 11/25/19 00:00 Nasal Cannula 3.00 11/24/19 23:45 65 14 132/67 (88) 94 Nasal Cannula 3.00 11/24/19 23:00 88 28 90 Nasal Cannula 3.00 11/24/19 22:00 66 17 92 Nasal Cannula 3.00 11/24/19 21:13 89 19 126/61 (82) 95 Nasal Cannula 3.00 11/24/19 21:03 98 Nasal Cannula 3.00 11/24/19 20:00 36.1 11/24/19 20:00 97 Nasal Cannula 3.00 11/24/19 20:00 72 17 114/60 (78) 92 Nasal Cannula 3.00 11/24/19 19:00 75 11/24/19 19:00 75 14 114/56 (75) 95 Nasal Cannula 3.00 11/24/19 18:48 96 Nasal Cannula 3.00 11/24/19 18:00 71 13 119/67 (84) 96 Nasal Cannula 3.00 11/24/19 17:00 80 25 119/63 (81) 95 Nasal Cannula 3.00 11/24/19 16:00 96 Nasal Cannula 3.00 11/24/19 16:00 101 9 127/91 (103) 97 Nasal Cannula 3.00 11/24/19 16:00 36.4 11/24/19 15:43 94 Nasal Cannula 3.00 11/24/19 15:00 129 14 103/54 (70) 92 Nasal Cannula 5.00 11/24/19 14:00 72 14 112/55 (74) 95 Nasal Cannula 5.00 11/24/19 13:01 98 11/24/19 13:00 103 17 118/57 (77) 95 Nasal Cannula 5.00 11/24/19 12:00 97 Nasal Cannula 5.00 11/24/19 12:00 71 19 118/57 (77) 90 Nasal Cannula 5.00 11/24/19 11:30 95 Nasal Cannula 5.00 11/24/19 11:00 79 16 95 Nasal Cannula 5.00 11/24/19 10:00 77 14 92 Nasal Cannula 5.00 11/24/19 09:00 99 17 121/68 (85) 96 Nasal Cannula 5.00 11/24/19 08:11 97 Nasal Cannula 5.00 11/24/19 08:00 37.3 11/24/19 08:00 102 20 118/59 (78) 95 Nasal Cannula 5.00 11/24/19 07:12 82 11/24/19 07:00 80 14 123/57 (79) 93 Nasal Cannula 5.00 I & O 11/25/19 07:00 Intake Total 3075 ml Output Total 1025 ml Balance 2050 ml Height & Weight Height: 6'0.00" Weight: 195lbs. 6.0oz. 88.631495ks; 21.00 BMI Method:Stated General Appearance: No Apparent Distress, WD/WN HEENT: PERRL/EOMI, Moist Mucous Membranes; No Scleral Icterus (L), No Scleral Icterus (R) Neck: Normal Inspection, Supple Respiratory: No Accessory Muscle Use, Decreased Breath Sounds (in bases); No Rhonci, No Wheezing; Other (on NC) Cardiovascular: Regular Rate, Rhythm, No JVD, No Murmur Capillary Refill: Less Than 3 Seconds Extremity: Normal Capillary Refill, No Calf Tenderness, No Pedal Edema Neurologic/Psychiatric: Alert, Oriented x3, Normal Mood/Affect; No Aphasia, No Facial Droop Skin: Normal Color, Warm/Dry, Other (pacemaker incision site without erythema or oozing) Results Lab Laboratory Tests 11/23/19 17:25 11/24/19 03:23 11/25/19 02:35 Assessment/Plan Assessment/Plan Severe Sepsis -Gautam cultures pending -COVID is pending -Continue Vanco/Cefepime COPDAE with hypoxia Combivent -Add advair -Oxygen Anemia -Monitor Urinary retention -Metz was d/c'd yesterday secondary to pt request -Pt is now willing to have Metz -Continue Flomax -Will reinsert Metz -RN has bladder scanned pt and straight cathed pt S/P recent Pacemaker in [place] Recent cervical spine fracture -Continue C Collar -Pt states he has an appt with [facility] doctor on regarding cervical spine fracture WALDEMAR CALLAWAY DO Nov 25, 2019 06:17
[2019-11-25] MEDS ORDERED: LIDOCAINE UROJET 2% GEL 10 ML PKG ONE (06:23)
[2019-11-25] MEDS ORDERED: LIDOCAINE UROJET 2% GEL 10 ML PKG TOP ONE (06:30)
[2019-11-25] MEDS: FLUTICASONE NASAL SPRAY (FLONASE) 16 GM BTL NS PRN (06:45)
[2019-11-25] MEDS: ADVAIR HFA 115/21 MCG INHALER 8 GM IH SCH ×2 (07:27→20:07)
[2019-11-25] MEDS: ALBUTEROL/IPRATROP (COMBIVENT RESPIMAT) 4 GM INHALER INH SCH ×4 (07:27→20:06)
[2019-11-25] MEDS: ASPIRIN E.C. 81 MG (ECOTRIN) TAB PO SCH (08:23)
[2019-11-25] MEDS: eZETimibe 10 MG (ZETIA) TABLET PO SCH (08:23)
[2019-11-25] MEDS: FINASTERIDE (PROSCAR) 5 MG TAB PO SCH (08:23)
--- NOTE | 2019-11-25 08:40 | Physical Therapy Daily Note ---
PT Daily Note-Current Subjective Patient in bed pre tx, agrees to PT, has no complaints of pain. Appearance Patient in bed post tx with nurse call, phone, nurse in room. Mental Status Patient Orientation: Person, Place, Situation Attachments: SCD's, Oxygen Transfers SCALE: Activities may be completed with or without assistive devices. 6-Wnlezfdeby-wozmlqn completes the activity by him/herself with no assistance from a helper. 5-Set-up or Clean-up Assistance-helper sets up or cleans up; patient completes activity. [place] assists only prior to or following the activity. 4-Supervision or Touching Assistance-helper provides verbal cues and/or touching/steadying and/or contact guard assistance as patient completes activity. Assistance may be provided throughout the activity or intermittently. 3-Partial/Moderate Assistance-helper does LESS THAN HALF the effort. [place] lifts, holds or supports trunk or limbs, but provides less than half the effort. 2-Substantial/Maximal Assistance-helper does MORE THAN HALF the effort. [place] lifts or holds trunk or limbs and provides more than half the effort. 1-Zrzhbnnta-vocezj does ALL the effort. Patient does none of the effort to complete the activity. Or, the assistance of 2 or more helpers is required for the patient to complete the activity. If activity was not attempted, code reason: 7-Patient Refused. 9-Not Applicable-not attempted and the patient did not perform the activity before the current illness, exacerbation or injury. 10-Not Attempted due to Environmental Limitations-(lack of equipment, weather restraints, etc.). 88-Not Attempted due to Medical Conditions or Safety Concerns. Roll Left & Right (QC): 6 Sit to Lying (QC): 4 Lying to Sitting/Side of Bed(Q: 4 Sit to Stand (QC): 4 Chair/Rdt-ai-Nuoxf Xfer(QC): 4 Weight Bearing Right Lower Extremity: Right Weight Bearing/Tolerated Left Lower Extremity: Left Weight Bearing/Tolerated Gait Training Distance: 200' Walk 10 feet (QC): 3 Walk 50 ft with 2 Turns(QC): 3 Walk 150 ft (QC): 3 Gait Persons Needed: 1 Gait Assistive Device: None Slow ambulation, slightly unsteady, had one slight LOB upon turning and needed minimal assist from therapist to recover Exercises Seated Therapy Exercises: Ankle pumps, Long arc quads Seated Reps: 20 Treatments bed mobility and transfers, ambulation, LE exercise Assessment Current Status: Fair Progress improving endurance PT Short Term Goals Short Term Goals Time Frame: Nov 27, 2019 Roll Left & Right: 6 Sit to lyin Lying to sitting on side of be: 6 Sit to stand: 6 Chair/cci-lu-hksiw transfer: 6 Toilet transfer: 6 Walk 10 feet: 6 Walk 50 feet with two turns: 6 Walk 150 feet: 6 PT Plan Problem List Problem List: Activity Tolerance, Functional Strength, Safety, Balance, Gait, Transfer Treatment/Plan Treatment Plan: Continue Plan of Care Treatment Plan: Education, Functional Activity Kanwal, Gait, Therapeutic Exercise Treatment Duration: Nov 27, 2019 Frequency: 4 times per week Estimated Hrs Per Day: .25 hour per day Patient and/or Family Agrees t: Yes Safety Risks/Education Patient Education: Gait Training, Transfer Techniques, Correct Positioning, Safety Issues Teaching Recipient: Patient Teaching Methods: Demonstration, Discussion Response to Teaching: Reinforcement Needed Time/GCodes Time In: 0822 Time Out: 0835 Total Billed Treatment Time: 13 Total Billed Treatment 1 visit FA JENNIFER SANDOVAL PT Nov 25, 2019 08:40
--- NOTE | 2019-11-25 08:41 | Diagnostic Imaging Report ---
INDICATION: Fever. TECHNIQUE/COMPARISON: A frontal chest was obtained at 0324 hours and compared to 11/23/2019. FINDINGS: There is cardiomegaly and post sternotomy change. The pacemaker device is unchanged. There is mild central vascular congestion. There is no focal consolidation, pneumothorax, or pleural fluid. IMPRESSION: Cardiomegaly and post operative changes with mild central vascular congestion. No focal infiltrate or pleural fluid. Dictated by: Dictated on workstation # [id number]
--- NOTE | 2019-11-25 09:48 | Progress Note - Hospitalist ---
Subjective HPI/CC On Admission Date Seen by Provider: Nov 25, 2019 Time Seen by Provider: 09:44 Pt is an 84yoCM with a PMH of CAD, HTN, HLD, and recent pacemaker placement on 11/20 who presented to the ER due to confusion and weakness. He was dischared from [facility] on 11/20 after cardiac cath and pacemaker placement. He states he did well until yesterday afternoon. He took a nap and woke up confused and weak. He was unaware of a fever at home. He denies any sick contacts other than being in the hospital recently. He was found to be febrile on arrival to the ER and placed on COVID precautions. he denies any cough, shortness of breath, diarrhea. He does report poor taste and lack of appetite but this has been going on for a few weeks to over a month. This morning he states he is doing better but still feels weaker than normal and wants to work on his strength. Subjective/Events-last exam Pt reports feeling better today but having some issues with urination overnight. Strength improving. Focused Exam Lactate Level 11/23/19 17:25: Lactic Acid Level 1.06 Objective Exam Vital Signs Vital Signs Date Time Temp Pulse Resp B/P (MAP) Pulse Ox O2 Delivery O2 Flow Rate FiO2 11/25/19 09:00 36.8 84 18 137/63 (87) 95 Nasal Cannula 1.00 11/23/19 23:51 21 Capillary Refill : Less Than 3 Seconds General Appearance: No Apparent Distress, WD/WN Neck: Other (in aspen collar) Respiratory: Lungs Clear, No Respiratory Distress Cardiovascular: Regular Rate, Rhythm, No Murmur Neurologic/Psychiatric: Alert, Oriented x3, Normal Mood/Affect Results/Procedures Lab Laboratory Tests 11/25/19 02:35 Patient resulted labs reviewed. Assessment/Plan Assessment and Plan Assess & Plan/Chief Complaint Sepsis- resolving Unknown source at this time, likely viral etiology Cultures negative Continue IV abx until 48 hours negative on cultures COVID negative WBC up but on steroids CAD HTN reported complete heart block with recent pacemaker placement Request records from [facility] Incision site looks good COPDAE Acute hypoxic respiratory failure Pulm consulted, appreciate recs Continue Advair and Combivent Wean oxygen as able, down to 1 lpm Switch to prednisone from decadron Anemia- stable Last colonoscopy/EGD in 2018 Showed gastric ulcer and resolved esophagitis Trend Urinary retention Catheter in place Flomax restarted yesterday Finasteride started Urology consulted Hypokalemia- resolved DVT ppx: Diagnosis/Problems Diagnosis/Problems (1) CAD (coronary artery disease) Status: Chronic Qualifiers: Coronary Disease-Associated Artery/Lesion type: [place] artery [place] vs. transplanted heart: [place] heart Associated angina: without angina Qualified Codes: I25.10 - Atherosclerotic heart disease of [place] coronary artery without angina pectoris (2) Cardiac pacemaker Status: Acute (3) Hypokalemia Status: Acute (4) Hypothyroidism Status: Chronic Qualifiers: Hypothyroidism type: postoperative Qualified Codes: E89.0 - Postprocedural hypothyroidism (5) Severe sepsis Status: Acute (6) Person under investigation for COVID-19 Status: Acute (7) Altered mental status Status: Acute Qualifiers: Altered mental status type: delirium Qualified Codes: R41.0 - Disorientation, unspecified (8) Hypoxia Status: Acute (9) Iron deficiency anemia Qualifiers: Iron deficiency anemia type: unspecified iron deficiency Qualified Codes: D50.9 - Iron deficiency anemia, unspecified (10) Urinary retention Status: Acute Clinical Quality Measures DVT/VTE Risk/Contraindication: Risk Factor Score Per Nursin RFS Level Per Nursing on Admit: 4+=Very High MARIO PARK MD Nov 25, 2019 09:48
[2019-11-25] MEDS ORDERED: CEFEPIME INJECTION 1,000 MG in WATER (STERILE) FOR INJECTION 10 ML IV SCH (10:00)
--- NOTE | 2019-11-25 14:00 | NUR ---
"RD ASSESSMENT PMHx: CAD'; HTN; HLD; [place]; GERD; diverticulosis; hypothyroidism PT INTERACTION: Pt was awake and pleasant during consult for MST score. Pt states current appetite is not good, and it has been this way since admit. Note avg PO intake 25-50% x1d, per chart review. Pt states following a low-fat diet at home, and has no issues with chewing/swallowing food. Pt states no recent issues with nausea, vomiting, constipation, or diarrhea. Note last BM was 11/24, and pt not currently on bowel regimen per chart review. Pt states recent wt loss, but is unsure of amount/timeframe. Note recent 29# wt gain x1mon, per chart review. Upon visual assessment, pt appears to be adequately nourished with no visible signs of muscle/fat wasting, and a BMI of 29.4 (Overweight BMI for age). While PO intake is declining, given wt hx and visual assessment, pt does not meet criteria for malnutrition per ASPEN guidelines. ABNORMAL NUTRITION-RELATED LAB VALUES LOW: Na 134; Ca 7.8; Pro 5.7; alb 2.7 HIGH: glu 142 Est. kcal needs: 1975 kcal | 20 kcal/kg Est. Pro needs: 79 g Pro | 0.8 g Pro/kg PES STATEMENT: Inadequate oral intake (NI-2.1) related to loss of appetite as evidenced by pt interview | avg PO intake 25-50% x1d INTERVENTION: Continue with current diet order of Regular diet. Add Ensure Enlive (vary) to meals TID, for increased kcal intake. Provides 350 kcal and 13 g Pro per serving. Encouraged pt to eat when able. Will continue to follow and reassess as pt needs, intake, and status change. MONITOR/EVALUATE: PO Intake; Plan of Care; Hydration Status; Weight Status; Lab Values Flor Villegas, MS, RD, LD"
--- NOTE | 2019-11-25 14:05 | Occupational Therapy Eval ---
OT Evaluation-General/PLF Medical Diagnosis Admission Date Nov 23, 2019 at 19:40 Medical Diagnosis: Sepsis Onset Date: Nov 23, 2019 Therapy Diagnosis Therapy Diagnosis: Weakness, Decreased ADL skills Height/Weight Height (Feet): 6 Height (Inches): 0.00 Weight (Pounds): 195 Weight (Ounces): 6.0 Precautions Precautions/Isolations: Fall Prevention, Standard Precautions Weight Bear Status Weight Bearing Restriction: Weight Bearing/Tolerated Pt. has on chenega J collar due to fall that happened approximately a month ago. He fx his vertebrae. Has a follow up scheduled with Dr. Dimas reports that he is supposed to wear the collar at all times so that his vertebrae can heal without surgery. Referral Physician: Caterina Referral Reason: Activity Tolerance, Self Care, Evaluation/Treatment, Strengthening/ROM Medical History Pertinent Medical History: CABG, CAD, HTN, Hypothroidism, ID Additional Medical History Pacemaker placed 11-21-19 Social History Home: Single Level Current Living Status: Spouse Entry Into Home: Stairs With Railing Steps Into Home: 2 ADL-Prior Level of Function SCALE: Activities may be completed with or without assistive devices. 1-Kqxnuczrjc-iggsmmv completes the activity by him/herself with no assistance from a helper. 5-Set-up or Clean-up Assistance-helper sets up or cleans up; patient completes activity. [place] assists only prior to or following the activity. 4-Supervision or Touching Assistance-helper provides verbal cues and/or touching/steadying and/or contact guard assistance as patient completes activity. Assistance may be provided throughout the activity or intermittently. 3-Partial/Moderate Assistance-helper does LESS THAN HALF the effort. [place] lifts, holds or supports trunk or limbs, but provides less than half the effort. 2-Substantial/Maximal Assistance-helper does MORE THAN HALF the effort. [place] lifts or holds trunk or limbs and provides more than half the effort. 3-Iolvgjvvt-jxipgp does ALL the effort. Patient does none of the effort to complete the activity. Or, the assistance of 2 or more helpers is required for the patient to complete the activity. If activity was not attempted, code reason: 7-Patient Refused. 9-Not Applicable-not attempted and the patient did not perform the activity before the current illness, exacerbation or injury. 10-Not Attempted due to Environmental Limitations-(lack of equipment, weather restraints, etc.). 88-Not Attempted due to Medical Conditions or Safety Concerns. ADL PLOF Comments Pt. was independent with all daily skills. Self Care: Independent Functional Cognition: Independent DME/Equipment Comments Pt. has a walker but does not use it. Drive Self: Yes OT Current Status Subjective No pain reported. Appearance Pt. in bed. Alert and agrees to work with OT. Mental Status/Objective Patient Orientation: Person, Place, Time, Situation Attachments: Metz Catheter, IV Current Upper Extremity ROM WFL ADL-Treatment Oral Hygiene (QC): 4 (CGA standing at sink to brush teeth.) On/Off Footwear (QC): 2 (Pt. unable to bring feet up to him while seated on side of bed and maintaining back precautions.) OT consulted this date with PT, and PT reports that pt. was more unstable than yesterday. OT evaluated pt. to work on pt's independence and functional ability. Pt. reports that he has spinal precautions and is to wear his neck brace until follow up with his orthopedic Dr. Pt. educated on log roll and was able to complete with SBA. Pt. stood without walker and ambulated to sink to br [facility] teeth. Educated on "golfers lift" so that he could lean over sink for oral care. Pt. ambulates back to bed. Unable to bring feet up to himself to doff slipper socks. OT educated him on AE and pt. verbalizes understanding. Pt. transferred sit-supine with SBA. All needs met. Education OT Patient Education: Correct positioning, Modified ADL techniques, Progress toward Goal/Update tx plan, Purpose of tx/functional activities, Reviewed precautions, Rehab process, Transfer techniques Teaching Recipient: Patient Teaching Methods: Demonstration, Discussion Response to Teaching: Verbalize Understanding, Return Demonstration OT Group Home Goals Decorative Engraver Goals Time Frame: Dec 09, 2019 Eating (QC): 6 Oral Hygiene (QC): 6 Toileting Hygiene (QC): 6 Shower/Bathe Self (QC): 4 Upper Body Dressing (QC): 6 Lower Body Dressing (QC): 6 On/Off Footwear (QC): 6 Additional Goals: 1-Demonstrate ADL Tasks, 2-Verbalize Understanding, 3- ImproveStrength/Kanwal 1=Demonstrate adherence to instructed precautions during ADL tasks. 2=Patient will verbalize/demonstrate understanding of assistive devices/modifications for ADL. 3=Patient will improve strength/tolerance for activity to enable patient to perform ADL's. OT Education/Plan Problem List/Assessment Assessment: Decreased Activ Tolerance, Impaired I ADL's, Impaired Self-Care Skills Discharge Recommendations Plan/Recommendations: Continue POC Therapy Discharge Recommendati: Home & Family, Post Acute OT Equpiment Recommendations-D/C: Hip Kit Treatment Plan/Plan of Care Treatment,Training & Education: Yes Patient would benefit from OT for education, treatment and training to promote independence in ADL's, mobility, safety and/or upper extremity function for ADL's. Plan of Care: ADL Retraining, Functional Mobility, UE Funct Exercise/Act Treatment Duration: Dec 09, 2019 Frequency: 5 times per week Estimated Hrs Per Day: .25 hour per day Agreement: Yes Rehab Potential: Good Time/GCodes Start Time: 11:05 Stop Time: 11:26 Total Time Billed (hr/min): 21 Billed Treatment Time 1, NESTOR RIDDLE OT Nov 25, 2019 14:05
--- NOTE | 2019-11-25 15:32 | NUR ---
CM/SS visited with patient for discharge planning. Plan: The patient will return home with a resumption of home health. Home Health/Caregivers: The patient is on service with [facility]. CM/SS will contact the agency at time of discharge. CM/SS spoke with the patient and his daughter about different caregiver services. CM/SS discussed the Private Caregivers agencies in the area, [facility] (Homemaker services), and private caregivers not in an agency. Home: The patient lives at home with his . He reports that he is independent with his daily living activities. He did state that recently he has had to utilize a cane. His also uses a cane at home. Equipment: The patient reports having 2 walkers at the house and canes. Patient has a shower seat, grab bars, and toilet seat riser. No baseline oxygen need. Patient was wearing oxygen in room. Food: No delivery services. Patient reports his and him cook at home. Financial: Patient reports they can afford basic needs, bills, and additional homemaker services. DPOA: The patient reports that his daughter [place] is the "spokes" person. CM/SS asked if the patient had DPOA paper work that was signed/witnessed or legally drawn up. Patient states that he believes he has DPOA paperwork and will ask his daughter to bring a copy if he does. CM/SS discussed with patient that if he does not have one and wishes to it could be completed with this sw and witness. CM/SS will continue to follow.
--- NOTE | 2019-11-25 15:53 | NUR ---
Pastoral care visit.
[2019-11-25] MEDS: TAMSULOSIN 0.4 MG (FLOMAX) CAP PO SCH (16:23)
[2019-11-25] MEDS: PANTOPRAZOLE 40 MG (PROTONIX) TAB PO SCH (21:48)
[2019-11-25] MEDS: SIMvastatin 10 MG (ZOCOR) TAB PO SCH (21:48)
[2019-11-26] VITALS (7 sets, daily range): BP systolic 133–176; BP diastolic 65–79
[2019-11-26] MEDS: CEFEPIME INJECTION 1,000 MG in WATER (STERILE) FOR INJECTION 10 ML IV SCH ×2 (04:03→09:42)
[2019-11-26 04:48] LABS: BASOPHILS % (AUTO) 0 % (0-10); EOSINOPHILS % (AUTO) 0 % (0-10); HEMATOCRIT 34 % (40-54); HEMOGLOBIN 10.7 G/DL (13.3-17.7); LYMPHOCYTES # (AUTO) 0.6 X 10^3 (1.0-4.0); LYMPHOCYTES % (AUTO) 3 % (12-44); MEAN CORPUSCULAR HEMOGLOBIN 27 PG (25-34); MEAN CORPUSCULAR HGB CONC 32 G/DL (32-36); MEAN CORPUSCULAR VOLUME 86 FL (80-99); MEAN PLATELET VOLUME 9.9 FL (7.4-10.4); MONOCYTES # (AUTO) 1.5 X 10^3 (0.0-1.0); MONOCYTES % (AUTO) 8 % (0-12); NEUTROPHILS # (AUTO) 17.2 X 10^3 (1.8-7.8); NEUTROPHILS % (AUTO) 89 % (42-75); PLATELET COUNT 205 10^3/uL (130-400); RED CELL DISTRIBUTION WIDTH 14.6 % (10.0-14.5); WHITE BLOOD COUNT 19.3 10^3/uL (4.3-11.0)
[2019-11-26 05:11] LABS: ALBUMIN 2.5 GM/DL (3.2-4.5); CHLORIDE 104 MMOL/L (98-107); POTASSIUM 4.1 MMOL/L (3.6-5.0); SODIUM 133 MMOL/L (135-145)
[2019-11-26 05:12] LABS: CALCIUM 7.4 MG/DL (8.5-10.1)
[2019-11-26 05:13] LABS: GLUCOSE 107 MG/DL (70-105); TOTAL PROTEIN 5.1 GM/DL (6.4-8.2)
[2019-11-26 05:14] LABS: CARBON DIOXIDE 19 MMOL/L (21-32)
[2019-11-26] MEDS: KCL 20 MEQ TAB (K-DUR) PO SCH (05:14)
[2019-11-26] MEDS: POTASSIUM CL 10MEQ/50ML IVPB 50 ML IV SCH (05:14)
[2019-11-26 05:15] LABS: BILIRUBIN,TOTAL 0.4 MG/DL (0.1-1.0)
[2019-11-26 05:17] LABS: ALKALINE PHOSPHATASE 85 U/L (40-136); GFR ESTIMATED > 60; PHOSPHORUS 2.2 MG/DL (2.3-4.7)
[2019-11-26 05:18] LABS: BUN/CREATININE RATIO 20
[2019-11-26 05:19] LABS: MAGNESIUM 1.9 MG/DL (1.6-2.4)
[2019-11-26 05:20] LABS: ALANINE AMINOTRANSFERASE 18 U/L (0-55)
[2019-11-26] MEDS: MAGNESIUM 1 GM/100 ML IVPB 100 ML IV SCH (05:21)
[2019-11-26] MEDS: LEVOTHYROXINE 75 MCG (LEVOTHROID) TABLET PO SCH (06:04)
[2019-11-26] MEDS ORDERED: predniSONE 20 MG TAB PO SCH (07:00)
[2019-11-26] MEDS: ALBUTEROL/IPRATROP (COMBIVENT RESPIMAT) 4 GM INHALER INH SCH ×4 (07:24→19:14)
[2019-11-26] MEDS: ADVAIR HFA 115/21 MCG INHALER 8 GM IH SCH ×2 (07:25→19:14)
--- NOTE | 2019-11-26 08:26 | Pulmonary Progress Note ---
Subjective Date Seen by a Provider: Nov 26, 2019 Time Seen by a Provider: 08:23 Subjective/Events-last exam No complications noted. Sepsis Event Evaluation Height, Weight, BMI Height: 6'0.00" Weight: 195lbs. 6.0oz. [id number]; 21.00 BMI Method:Stated Focused Exam Lactate Level 11/23/19 17:25: Lactic Acid Level 1.06 Exam Exam Vital Signs Date Time Temp Pulse Resp B/P (MAP) Pulse Ox O2 Delivery O2 Flow Rate FiO2 11/26/19 08:00 37.0 97 18 133/74 (93) 96 Room Air 11/26/19 07:00 72 11/26/19 05:24 36.8 73 18 147/70 (95) 96 Nasal Cannula 1.00 11/26/19 04:12 36.6 71 18 176/79 (111) 95 Nasal Cannula 1.00 11/26/19 01:00 66 11/26/19 00:04 36.8 86 20 148/71 (96) 96 Nasal Cannula 1.00 11/25/19 20:16 94 Nasal Cannula 1.00 11/25/19 20:07 92 Nasal Cannula 1.00 11/25/19 20:00 Nasal Cannula 1.00 11/25/19 19:36 36.4 68 18 131/69 (89) 97 Nasal Cannula 1.00 11/25/19 19:00 75 11/25/19 16:00 35.6 66 16 137/71 (93) 96 Nasal Cannula 2.00 11/25/19 14:50 93 Nasal Cannula 105.00 11/25/19 12:24 73 11/25/19 12:00 36.4 73 20 127/65 (85) 97 Nasal Cannula 2.00 11/25/19 10:36 94 Nasal Cannula 1.00 11/25/19 09:00 36.8 84 18 137/63 (87) 95 Nasal Cannula 1.00 I & O 11/26/19 07:00 Intake Total 920 ml Output Total 1350 ml Balance -430 ml Height & Weight Height: 6'0.00" Weight: 195lbs. 6.0oz. 88.731239ea; 21.00 BMI Method:Stated General Appearance: No Apparent Distress, WD/WN HEENT: PERRL/EOMI, Moist Mucous Membranes; No Scleral Icterus (L), No Scleral Icterus (R) Neck: Other (in aspen collar) Respiratory: Lungs Clear, No Respiratory Distress Cardiovascular: Regular Rate, Rhythm, No Murmur Capillary Refill: Less Than 3 Seconds Extremity: Normal Capillary Refill, No Calf Tenderness, No Pedal Edema Neurologic/Psychiatric: Alert, Oriented x3, Normal Mood/Affect Skin: Normal Color, Warm/Dry, Other (pacemaker incision site without erythema or oozing) Results Lab Laboratory Tests 11/25/19 02:35 11/26/19 04:40 Assessment/Plan Assessment/Plan Severe Sepsis -Gautam cultures pending -COVID is negative -Cefepime -MRSA swab is negative COPDAE with hypoxia Combivent - advair -Oxygen - titrate as tolerated -D/C prednisone Anemia -Monitor S/P recent Pacemaker in [place] Recent cervical spine fracture -Continue C Collar -Pt states he has an appt with [facility] doctor on regarding cervical spine fracture WALDEMAR CALLAWAY DO Nov 26, 2019 08:25
[2019-11-26] MEDS: ASPIRIN E.C. 81 MG (ECOTRIN) TAB PO SCH (09:41)
[2019-11-26] MEDS: FINASTERIDE (PROSCAR) 5 MG TAB PO SCH (09:41)
[2019-11-26] MEDS: eZETimibe 10 MG (ZETIA) TABLET PO SCH (09:42)
--- NOTE | 2019-11-26 09:44 | Physical Therapy Daily Note ---
PT Daily Note-Current Subjective Patient is up in recliner and agrees to PT. Pain Numeric Pain Scale: 0-No Pain Location: No Pain Reported Mental Status Patient Orientation: Normal For Age Attachments: Metz Catheter Transfers SCALE: Activities may be completed with or without assistive devices. 6-Kqfregujdi-jjcvzyt completes the activity by him/herself with no assistance from a helper. 5-Set-up or Clean-up Assistance-helper sets up or cleans up; patient completes activity. [place] assists only prior to or following the activity. 4-Supervision or Touching Assistance-helper provides verbal cues and/or touching/steadying and/or contact guard assistance as patient completes activity. Assistance may be provided throughout the activity or intermittently. 3-Partial/Moderate Assistance-helper does LESS THAN HALF the effort. [place] lifts, holds or supports trunk or limbs, but provides less than half the effort. 2-Substantial/Maximal Assistance-helper does MORE THAN HALF the effort. [place] lifts or holds trunk or limbs and provides more than half the effort. 1-Hnytyaglu-epxegq does ALL the effort. Patient does none of the effort to complete the activity. Or, the assistance of 2 or more helpers is required for the patient to complete the activity. If activity was not attempted, code reason: 7-Patient Refused. 9-Not Applicable-not attempted and the patient did not perform the activity before the current illness, exacerbation or injury. 10-Not Attempted due to Environmental Limitations-(lack of equipment, weather restraints, etc.). 88-Not Attempted due to Medical Conditions or Safety Concerns. Sit to Stand (QC): 5 Weight Bearing Right Lower Extremity: Right Weight Bearing/Tolerated Left Lower Extremity: Left Weight Bearing/Tolerated Gait Training Does the Patient Walk?: Yes Distance: 250' x 2 Walk 10 feet (QC): 5 Walk 50 ft with 2 Turns(QC): 5 Walk 150 ft (QC): 5 Gait Assistive Device: FWW ambulated with cane initially, however, is more stable with FWW use. Patient reports he has FWW at home. Stair Training Stair Training: Handrails/: 1 handrail, uses cane #of Steps: 4 1 Step (curb) (QC): 5 4 Steps (QC): 5 Stairs: Pattern: Reciprocal Exercises Seated Therapy Exercises: Ankle pumps, Long arc quads Seated Reps: 15 Assessment Patient tolerated treatment well and transferred to toilet for BM. Instructed patient to pull cord for assistance when complete. He voices understanding. PT Short Term Goals Short Term Goals Time Frame: Nov 27, 2019 Roll Left & Right: 6 Sit to lyin Lying to sitting on side of be: 6 Sit to stand: 6 Chair/fol-ny-uuuui transfer: 6 Toilet transfer: 6 Walk 10 feet: 6 Walk 50 feet with two turns: 6 Walk 150 feet: 6 PT Plan Treatment/Plan Treatment Plan: Continue Plan of Care Treatment Plan: Education, Functional Activity Kanwal, Gait, Therapeutic Exercise Treatment Duration: Nov 27, 2019 Frequency: 4 times per week Estimated Hrs Per Day: .25 hour per day Patient and/or Family Agrees t: Yes Time/GCodes Time In: 840 Time Out: 850 Total Billed Treatment Time: 10 Total Billed Treatment 1 visit FA 10 min PABLITO CHAIREZ PT Nov 26, 2019 09:44
--- NOTE | 2019-11-26 10:17 | NUR ---
Natacha: Pt is Jainism Importance: he affirms that his natacha is important to him. Community: He belongs to [facility] and his replenishment analyst will be notified by him Action: [employer] Scoreboard Operator offered prayer and blessing.
[2019-11-26] MEDS: VANCOMYCIN 50 MG/ML ORAL SOLN 150 ML PO SCH ×3 (10:22→20:49)
--- NOTE | 2019-11-26 11:11 | Progress Note - Hospitalist ---
Subjective HPI/CC On Admission Date Seen by Provider: Nov 26, 2019 Time Seen by Provider: 11:08 Pt is an 84yoCM with a PMH of CAD, HTN, HLD, and recent pacemaker placement on 11/20 who presented to the ER due to confusion and weakness. He was dischared from [facility] on 11/20 after cardiac cath and pacemaker placement. He states he did well until yesterday afternoon. He took a nap and woke up confused and weak. He was unaware of a fever at home. He denies any sick contacts other than being in the hospital recently. He was found to be febrile on arrival to the ER and placed on COVID precautions. he denies any cough, shortness of breath, diarrhea. He does report poor taste and lack of appetite but this has been going on for a few weeks to over a month. This morning he states he is doing better but still feels weaker than normal and wants to work on his strength. Subjective/Events-last exam Pt reports feeling better this morning. Diarrhea improving. Focused Exam Lactate Level 11/23/19 17:25: Lactic Acid Level 1.06 Objective Exam Vital Signs Vital Signs Date Time Temp Pulse Resp B/P (MAP) Pulse Ox O2 Delivery O2 Flow Rate FiO2 11/26/19 08:00 Nasal Cannula 1.00 11/26/19 08:00 37.0 97 18 133/74 (93) 96 11/23/19 23:51 21 Capillary Refill : Less Than 3 Seconds General Appearance: No Apparent Distress, WD/WN Respiratory: No Respiratory Distress Gastrointestinal: Non Tender, Soft; No Distended Neurologic/Psychiatric: Alert, Oriented x3, Normal Mood/Affect Results/Procedures Lab Laboratory Tests 11/26/19 04:40 Patient resulted labs reviewed. Assessment/Plan Assessment and Plan Assess & Plan/Chief Complaint Sepsis- resolving Source appears to be C diff Cultures negative Oral vanc started, DC abx COVID negative CAD HTN reported complete heart block with recent pacemaker placement Request records from [facility] Incision site looks good COPDAE Acute hypoxic respiratory failure -resolved Pulm consulted, appreciate recs Continue Advair and Combivent Wean oxygen as able, down to 1 lpm Prednisone Anemia- stable Last colonoscopy/EGD in 2018 Showed gastric ulcer and resolved esophagitis Trend Urinary retention Catheter in place Flomax restarted yesterday Finasteride started Urology consulted Recent cervical spine fracture in [place] collar Has outpatient follow up scheduled with [facility] Hypokalemia- resolved DVT ppx: Diagnosis/Problems Diagnosis/Problems (1) CAD (coronary artery disease) Status: Chronic Qualifiers: Coronary Disease-Associated Artery/Lesion type: [place] artery [place] vs. transplanted heart: [place] heart Associated angina: without angina Qualified Codes: I25.10 - Atherosclerotic heart disease of [place] coronary artery without angina pectoris (2) Cardiac pacemaker Status: Acute (3) Hypokalemia Status: Acute (4) Hypothyroidism Status: Chronic Qualifiers: Hypothyroidism type: postoperative Qualified Codes: E89.0 - Postprocedural hypothyroidism (5) Severe sepsis Status: Acute (6) Person under investigation for COVID-19 Status: Acute (7) Altered mental status Status: Acute Qualifiers: Altered mental status type: delirium Qualified Codes: R41.0 - Disorientation, unspecified (8) Hypoxia Status: Acute (9) Iron deficiency anemia Qualifiers: Iron deficiency anemia type: unspecified iron deficiency Qualified Codes: D50.9 - Iron deficiency anemia, unspecified (10) Urinary retention Status: Acute (11) C. difficile diarrhea Status: Acute Clinical Quality Measures DVT/VTE Risk/Contraindication: Risk Factor Score Per Nursin RFS Level Per Nursing on Admit: 4+=Very High MARIO PARK MD Nov 26, 2019 11:11
[2019-11-26] MEDS: LACTOBACILLUS ACIDOPHILUS (PROBIOTIC) CAPSULE PO SCH ×2 (12:05→17:25)
--- NOTE | 2019-11-26 13:11 | NUR ---
CM/SS follow up. The patient was sitting up eating lunch and his daughter Mali was at bedside. He reports that he is feeling well today. The patient's daughter verbalized that she was able to get the patient an assessment with a caregiving agency in [place] tomorrow at 1200. Home Health: CM/SS contacted Vee from [facility] to update on possible discharge tomorrow. CM/SS informed the patient and his daughter that home health was notified about his possible discharge home tomorrow. They verbalized understanding. The patient did inform this sw that he is having trouble eating his lunch due to difficulty chewing and spices on the food. CM/SS notified the physician and she changed diet. He also asked that a nurse look at his neck. His Collar is rubbing a bloody raw spot. CM/SS notified nurse. CM/SS will continue to follow for discharge planning.
--- NOTE | 2019-11-26 14:27 | Occupational Ther Daily Note ---
OT Current Status-Daily Note Subjective Pt. reports that he did not sleep well last night. States that he was up going to the bathroom and is very tired. Appearance Pt. in bed. Alert and oriented. Mental Status/Objective Patient Orientation: Person, Place, Time, Situation ADL-Treatment Therapy Code Descriptions/Definitions Functional [place] Measure: 0=Not Assessed/NA 4=Minimal Assistance 1=Total Assistance 5=Supervision or Setup 2=Maximal Assistance 6=Modified [place] 3=Moderate Assistance 7=Complete IndependenceSCALE: Activities may be completed with or without assistive devices. 8-Wzyldsitfu-rvtjibr completes the activity by him/herself with no assistance from a helper. 5-Set-up or Clean-up Assistance-helper sets up or cleans up; patient completes activity. [place] assists only prior to or following the activity. 4-Supervision or Touching Assistance-helper provides verbal cues and/or touching/steadying and/or contact guard assistance as patient completes activity. Assistance may be provided throughout the activity or intermittently. 3-Partial/Moderate Assistance-helper does LESS THAN HALF the effort. [place] lifts, holds or supports trunk or limbs, but provides less than half the effort. 2-Substantial/Maximal Assistance-helper does MORE THAN HALF the effort. [place] lifts or holds trunk or limbs and provides more than half the effort. 8-Mrwedkwvg-boioqq does ALL the effort. Patient does none of the effort to complete the activity. Or, the assistance of 2 or more helpers is required for the patient to complete the activity. If activity was not attempted, code reason: 7-Patient Refused. 9-Not Applicable-not attempted and the patient did not perform the activity before the current illness, exacerbation or injury. 10-Not Attempted due to Environmental Limitations-(lack of equipment, weather restraints, etc.). 88-Not Attempted due to Medical Conditions or Safety Concerns. Other Treatment OT brought in adaptive equipment and educated pt. on all pieces. Pt. verbalizes that he was given a hip kit before this started, and that he has it at home. He verbalizes understanding of all pieces. He declines attempting to practice pieces, as he is tired. Pt. seems discouraged and OT attempts to encourage him. Pt. reports that his [place] J collar is rubbing areas under his chin, and that the nurse is going to look at it. Unfortunately, it was the foam component, and as long as pt has to wear that specific collar, it could not be adjusted. OT provided guaze for padding and pt. states that it feels better. All needs are met and pt. states that he hopes to discharge tomorrow. He has a supportive family. All needs met and pt. comfortable in bed. Education OT Patient Education: Correct positioning, Modified ADL techniques, Progress toward Goal/Update tx plan, Purpose of tx/functional activities, Reviewed precautions, Rehab process, Transfer techniques Teaching Recipient: Patient Teaching Methods: Demonstration, Discussion Response to Teaching: Verbalize Understanding, Return Demonstration OT Inside Tester Goals Inside Tester Goals Time Frame: Dec 09, 2019 Eating (QC): 6 Oral Hygiene (QC): 6 Toileting Hygiene (QC): 6 Shower/Bathe Self (QC): 4 Upper Body Dressing (QC): 6 Lower Body Dressing (QC): 6 On/Off Footwear (QC): 6 Additional Goals: 1-Demonstrate ADL Tasks, 2-Verbalize Understanding, 3- ImproveStrength/Kanwal 1=Demonstrate adherence to instructed precautions during ADL tasks. 2=Patient will verbalize/demonstrate understanding of assistive devices/modifications for ADL. 3=Patient will improve strength/tolerance for activity to enable patient to perform ADL's. OT Education/Plan Problem List/Assessment Assessment: Decreased Activ Tolerance Discharge Recommendations Plan/Recommendations: Discontinue OT Therapy Discharge Recommendati: Home & Family Treatment Plan/Plan of Care Treatment,Training & Education: Yes Patient would benefit from OT for education, treatment and training to promote independence in ADL's, mobility, safety and/or upper extremity function for ADL's. Plan of Care: ADL Retraining, Functional Mobility, UE Funct Exercise/Act Treatment Duration: Dec 09, 2019 Frequency: 5 times per week Estimated Hrs Per Day: .25 hour per day Agreement: Yes Rehab Potential: Good Time/GCodes Start Time: 11:20 Stop Time: 11:35 Total Time Billed (hr/min): 15 Billed Treatment Time 1, ADL NESTOR MONK OT Nov 26, 2019 14:27
[2019-11-26] MEDS: TAMSULOSIN 0.4 MG (FLOMAX) CAP PO SCH (16:20)
--- NOTE | 2019-11-26 18:59 | CONSULTATION REPORT ---
DATE OF SERVICE: 11/26/2019 ATTENDING PHYSICIAN: Dr. Calvo. SUMMARY: After reviewing the patient's records, interviewing him and examining him, this is an 84-year-old white man with recent pacemaker placement 5 days ago, treated with cardiac catheterization and pacemaker placement, who was admitted through the emergency room with fever, confusion and weakness, found to have Clostridium infection. He failed trial of voiding and was started on Flomax and finasteride by Dr. Calvo. He does admit to voiding symptoms in the past at home and was treated by Dr. Hall apparently with antibiotics. He did not see a urologist before and does not have any urological procedure or treatment. The urine is clear at the end of the Metz catheter. Examination was deferred because of the infection status. His kidney functions are normal. IMPRESSION: Urinary retention secondary to BPH and/or neurogenic bladder. PLAN: The patient will need at least three days on Flomax before given a trial of voiding; we can do that here at the hospital or as an outpatient through my office. Once he goes home, we will fix him up an appointment at the office and manage accordingly. The plan was fully explained to the patient. Job ID: [id number] DocumentID: [id number] Dictated Date: 11/26/2019 12:09:47 Food Service Clerk Date: 11/26/2019 14:48:09 Dictated By: ANAIS ABRRIOS MD
[2019-11-26] MEDS: PANTOPRAZOLE 40 MG (PROTONIX) TAB PO SCH (20:49)
[2019-11-26] MEDS: SIMvastatin 10 MG (ZOCOR) TAB PO SCH (20:49)
[2019-11-27] VITALS: BP 145/65
[2019-11-27] MEDS: VANCOMYCIN 50 MG/ML ORAL SOLN 150 ML PO SCH ×2 (03:19→08:58)
[2019-11-27 04:00] VITALS: BP 166/84
[2019-11-27 05:30] VITALS: BP 153/74
[2019-11-27 06:24] LABS: BASOPHILS % (AUTO) 0 % (0-10); EOSINOPHILS % (AUTO) 0 % (0-10); HEMATOCRIT 35 % (40-54); HEMOGLOBIN 11.6 G/DL (13.3-17.7); LYMPHOCYTES # (AUTO) 1.2 X 10^3 (1.0-4.0); LYMPHOCYTES % (AUTO) 6 % (12-44); MEAN CORPUSCULAR HEMOGLOBIN 28 PG (25-34); MEAN CORPUSCULAR HGB CONC 33 G/DL (32-36); MEAN CORPUSCULAR VOLUME 84 FL (80-99); MEAN PLATELET VOLUME 9.6 FL (7.4-10.4); MONOCYTES % (AUTO) 6 % (0-12); NEUTROPHILS # (AUTO) 16.2 X 10^3 (1.8-7.8); NEUTROPHILS % (AUTO) 88 % (42-75); PLATELET COUNT 281 10^3/uL (130-400); RED CELL DISTRIBUTION WIDTH 14.4 % (10.0-14.5); WHITE BLOOD COUNT 18.3 10^3/uL (4.3-11.0)
--- NOTE | 2019-11-27 06:31 | Pulmonary Progress Note ---
Subjective Time Seen by a Provider: 06:28 Subjective/Events-last exam Pt complains of generalized bilateral weakness. Sepsis Event Evaluation Height, Weight, BMI Height: 6'0.00" Weight: 195lbs. 6.0oz. 88.709754of; 21.00 BMI Method:Stated Exam Exam Vital Signs Date Time Temp Pulse Resp B/P (MAP) Pulse Ox O2 Delivery O2 Flow Rate FiO2 11/27/19 05:30 153/74 (100) 11/27/19 04:00 37.0 89 20 166/84 (111) 94 Room Air 11/27/19 01:00 65 11/27/19 00:00 36.6 87 18 145/65 (91) 92 Room Air 11/26/19 20:50 Room Air 11/26/19 19:56 36.8 90 20 144/79 (100) 96 Room Air 11/26/19 19:19 97 Room Air 11/26/19 19:15 96 Room Air 11/26/19 19:00 96 11/26/19 16:21 37.0 71 20 151/65 (93) 94 Room Air 11/26/19 14:42 88 Room Air 11/26/19 13:00 79 11/26/19 12:00 37.1 83 18 156/74 (101) 94 Nasal Cannula 1.00 11/26/19 10:44 88 Room Air 11/26/19 08:00 Nasal Cannula 1.00 11/26/19 08:00 37.0 97 18 133/74 (93) 96 Room Air 11/26/19 07:25 94 Nasal Cannula 1.00 11/26/19 07:24 92 Nasal Cannula 1.00 11/26/19 07:00 72 I & O 11/27/19 07:00 Intake Total 2050 ml Output Total 1525 ml Balance 525 ml Height & Weight Height: 6'0.00" Weight: 195lbs. 6.0oz. 88.265811ul; 21.00 BMI Method:Stated General Appearance: No Apparent Distress, WD/WN HEENT: PERRL/EOMI, Moist Mucous Membranes; No Scleral Icterus (L), No Scleral Icterus (R) Neck: Other (in [place]pen collar) Respiratory: Lungs Clear, No Respiratory Distress Cardiovascular: Regular Rate, Rhythm, No Murmur Capillary Refill: Less Than 3 Seconds Extremity: Normal Capillary Refill, No Calf Tenderness, No Pedal Edema Neurologic/Psychiatric: Alert, Oriented x3, Normal Mood/Affect Skin: Normal Color, Warm/Dry, Other (pacemaker incision site without erythema or oozing) Results Lab Laboratory Tests 11/26/19 04:40 Assessment/Plan Assessment/Plan Severe Sepsis - improving -Gautam cultures negative -COVID is negative -MRSA swab is negative COPDAE with hypoxia Combivent - advair -Oxygen - titrate as tolerated -D/C prednisone Diarrhea with CDIFF -PO Vanco Anemia -Monitor S/P recent Pacemaker in [place] Recent cervical spine fracture -Continue C Collar -Pt [facility] on [facility] WALDEMAR CALLAWAY DO Nov 27, 2019 06:31
[2019-11-27 06:32] LABS: ALBUMIN 2.5 GM/DL (3.2-4.5); CHLORIDE 105 MMOL/L (98-107); POTASSIUM 3.4 MMOL/L (3.6-5.0); SODIUM 133 MMOL/L (135-145)
[2019-11-27 06:33] LABS: CALCIUM 7.2 MG/DL (8.5-10.1)
[2019-11-27 06:34] LABS: GLUCOSE 88 MG/DL (70-105); TOTAL PROTEIN 4.8 GM/DL (6.4-8.2)
[2019-11-27 06:35] LABS: CARBON DIOXIDE 20 MMOL/L (21-32)
[2019-11-27 06:36] LABS: BILIRUBIN,TOTAL 0.5 MG/DL (0.1-1.0)
[2019-11-27 06:37] LABS: PHOSPHORUS 1.7 MG/DL (2.3-4.7)
[2019-11-27 06:38] LABS: ALKALINE PHOSPHATASE 81 U/L (40-136); CREATININE SERUM 0.78 MG/DL (0.60-1.30); GFR ESTIMATED > 60
[2019-11-27 06:39] LABS: BUN/CREATININE RATIO 19
[2019-11-27 06:41] LABS: ALANINE AMINOTRANSFERASE 22 U/L (0-55); MAGNESIUM 1.8 MG/DL (1.6-2.4)
[2019-11-27] MEDS: MAGNESIUM 1 GM/100 ML IVPB 100 ML IV SCH (06:46)
[2019-11-27] MEDS: POTASSIUM CL 10MEQ/50ML IVPB 50 ML IV SCH (06:49)
[2019-11-27] MEDS: LEVOTHYROXINE 75 MCG (LEVOTHROID) TABLET PO SCH (06:56)
[2019-11-27] MEDS: KCL 20 MEQ TAB (K-DUR) PO SCH (06:57)
[2019-11-27] MEDS ORDERED: KCL 20 MEQ TAB (K-DUR) PO NR (07:00)
[2019-11-27] MEDS: ADVAIR HFA 115/21 MCG INHALER 8 GM IH SCH (07:37)
[2019-11-27] MEDS: ALBUTEROL/IPRATROP (COMBIVENT RESPIMAT) 4 GM INHALER INH SCH ×2 (07:37→10:42)
[2019-11-27 08:00] VITALS: BP 147/71
[2019-11-27] MEDS: FINASTERIDE (PROSCAR) 5 MG TAB PO SCH (08:46)
[2019-11-27] MEDS: ASPIRIN E.C. 81 MG (ECOTRIN) TAB PO SCH (08:47)
[2019-11-27] MEDS: LACTOBACILLUS ACIDOPHILUS (PROBIOTIC) CAPSULE PO SCH ×2 (08:47→13:26)
[2019-11-27] MEDS: eZETimibe 10 MG (ZETIA) TABLET PO SCH (08:47)
--- NOTE | 2019-11-27 09:06 | Physical Therapy Progress Note ---
Therapy Progress Note Pt in bed, declines to participate with PT. Pt reports "I have been walking to the BR all night. I just don't feel like I can do anything this morning, maybe this afternoon". PT will re-attempt this PM as time allows. RENE GUILLEN DPNivia Nov 27, 2019 09:06
--- NOTE | 2019-11-27 09:40 | Progress Note - Hospitalist ---
Subjective HPI/CC On Admission Date Seen by Provider: Nov 27, 2019 Time Seen by Provider: 09:36 Pt is an 84yoCM with a PMH of CAD, HTN, HLD, and recent pacemaker placement on 11/20 who presented to the ER due to confusion and weakness. He was dischared from [facility] on 11/20 after cardiac cath and pacemaker placement. He states he did well until yesterday afternoon. He took a nap and woke up confused and weak. He was unaware of a fever at home. He denies any sick contacts other than being in the hospital recently. He was found to be febrile on arrival to the ER and placed on COVID precautions. he denies any cough, shortness of breath, diarrhea. He does report poor taste and lack of appetite but this has been going on for a few weeks to over a month. This morning he states he is doing better but still feels weaker than normal and wants to work on his strength. Subjective/Events-last exam Pt reports feeling weak today. Diarrhea slowing down though. Objective Exam Vital Signs Vital Signs Date Time Temp Pulse Resp B/P (MAP) Pulse Ox O2 Delivery O2 Flow Rate FiO2 11/27/19 08:00 37.5 94 20 147/71 (96) 95 Room Air 11/26/19 12:00 1.00 11/23/19 23:51 21 Capillary Refill : Less Than 3 Seconds General Appearance: No Apparent Distress, WD/WN Neck: Other ([place] collar in place) Respiratory: Lungs Clear, No Respiratory Distress Cardiovascular: Regular Rate, Rhythm, No Murmur Neurologic/Psychiatric: Alert, Oriented x3 Results/Procedures Lab Laboratory Tests 11/27/19 06:12 Patient resulted labs reviewed. Assessment/Plan Assessment and Plan Assess & Plan/Chief Complaint Sepsis- resolving Source appears to be C diff Cultures negative Oral vanc COVID negative CAD HTN reported complete heart block with recent pacemaker placement Request records from [facility] Incision site looks good [place] Acute hypoxic respiratory failure -resolved Pulm consulted, appreciate recs Continue Advair and Combivent Prednisone Anemia- stable Last colonoscopy/EGD in 2018 Showed gastric ulcer and resolved esophagitis Urinary retention Catheter in place Flomax restarted yesterday Finasteride started Urology consulted, appreciate recs Recent cervical spine fracture Weakness in [place] collar Has outpatient follow up scheduled with [facility] PT/OT IRU consulted Hypokalemia- resolved DVT ppx: Diagnosis/Problems Diagnosis/Problems (1) CAD (coronary artery disease) Status: Chronic Qualifiers: Coronary Disease-Associated Artery/Lesion type: [place] artery [place] vs. transplanted heart: [place] heart Associated angina: without angina Qualified Codes: I25.10 - Atherosclerotic heart disease of [place] coronary artery without angina pectoris (2) Cardiac pacemaker Status: Acute (3) Hypokalemia Status: Acute (4) Hypothyroidism Status: Chronic Qualifiers: Hypothyroidism type: postoperative Qualified Codes: E89.0 - Postprocedural hypothyroidism (5) Severe sepsis Status: Acute (6) Person under investigation for COVID-19 Status: Acute (7) Altered mental status Status: Acute Qualifiers: Altered mental status type: delirium Qualified Codes: R41.0 - Disorientation, unspecified (8) Hypoxia Status: Acute (9) Iron deficiency anemia Qualifiers: Iron deficiency anemia type: unspecified iron deficiency Qualified Codes: D50.9 - Iron deficiency anemia, unspecified (10) Urinary retention Status: Acute (11) C. difficile diarrhea Status: Acute Clinical Quality Measures DVT/VTE Risk/Contraindication: Risk Factor Score Per Nursin RFS Level Per Nursing on Admit: 4+=Very High MARIO PARK MD Nov 27, 2019 09:40
--- NOTE | 2019-11-27 11:02 | Physical Therapy Daily Note ---
PT Daily Note-Current Subjective Patient agrees to PT. He does state he wants to go home and get "out of this place". Physician notified. Mental Status Patient Orientation: Normal For Age Attachments: Metz Catheter Transfers SCALE: Activities may be completed with or without assistive devices. 3-Mwyfcilcvz-vdatfor completes the activity by him/herself with no assistance from a helper. 5-Set-up or Clean-up Assistance-helper sets up or cleans up; patient completes activity. [place] assists only prior to or following the activity. 4-Supervision or Touching Assistance-helper provides verbal cues and/or touching/steadying and/or contact guard assistance as patient completes activity. Assistance may be provided throughout the activity or intermittently. 3-Partial/Moderate Assistance-helper does LESS THAN HALF the effort. [place] lifts, holds or supports trunk or limbs, but provides less than half the effort. 2-Substantial/Maximal Assistance-helper does MORE THAN HALF the effort. [place] lifts or holds trunk or limbs and provides more than half the effort. 8-Xfrylrfmg-nehyyl does ALL the effort. Patient does none of the effort to com plete the activity. Or, the assistance of 2 or more helpers is required for the patient to complete the activity. If activity was not attempted, code reason: 7-Patient Refused. 9-Not Applicable-not attempted and the patient did not perform the activity before the current illness, exacerbation or injury. 10-Not Attempted due to Environmental Limitations-(lack of equipment, weather restraints, etc.). 88-Not Attempted due to Medical Conditions or Safety Concerns. Sit to Lying (QC): 6 Lying to Sitting/Side of Bed(Q: 6 Sit to Stand (QC): 6 Chair/Bpw-va-Arnmr Xfer(QC): 6 Toilet Transfer (QC): 6 toilets self without difficulty after BM Weight Bearing Right Lower Extremity: Right Weight Bearing/Tolerated Left Lower Extremity: Left Weight Bearing/Tolerated Gait Training Does the Patient Walk?: Yes Distance: 275' Walk 10 feet (QC): 6 Walk 50 ft with 2 Turns(QC): 6 Walk 150 ft (QC): 6 Gait Assistive Device: FWW safe and functional with FWW Assessment Patient educated on importance of complying with recommendations to ensure safe return to home with emphasis on not readmitting due to inability to care for self at home. Patient voices understanding. PT consulted with physician on patient concern. PT Short Term Goals Short Term Goals Time Frame: Nov 27, 2019 Roll Left & Right: 6 Sit to lyin Lying to sitting on side of be: 6 Sit to stand: 6 Chair/atc-ey-bueor transfer: 6 Toilet transfer: 6 Walk 10 feet: 6 Walk 50 feet with two turns: 6 Walk 150 feet: 6 PT Plan Treatment/Plan Treatment Plan: Continue Plan of Care Treatment Plan: Education, Functional Activity Kanwal, Gait, Therapeutic Exercise Treatment Duration: Nov 27, 2019 Frequency: 4 times per week Estimated Hrs Per Day: .25 hour per day Patient and/or Family Agrees t: Yes Time/GCodes Time In: 1012 Time Out: 1022 Total Billed Treatment Time: 10 Total Billed Treatment 1 visit FA 10 min PABLITO CHAIREZ PT Nov 27, 2019 11:02
[2019-11-27] MEDS ORDERED: VANC50SO PO (11:40)
[2019-11-27] MEDS ORDERED: FLUT12AE4 IH (11:40)
[2019-11-27] MEDS ORDERED: FINA5TAB6 PO (11:40)
[2019-11-27] MEDS ORDERED: LACT1CAP7 PO (11:40)
--- NOTE | 2019-11-27 11:43 | NUR ---
CM/SS finalized discharge plan. Plan: The patient is discharging today 11/26 home with a resumption of home health. Home Health: CM/SS contacted Vee to inform her of patient's discharge. She verbalized understanding. The patient reports that he is doing fine today but is tired and want's to go home. He states his and daughter are working on the private caregiver and he does not have any other needs at this time. No further interventions at this time.
[2019-11-27 11:47] VITALS: BP 136/63
--- NOTE | 2019-11-27 11:48 | D/C HH Face to Face Order ---
D/C Face to Face Orders Instructions for Patient Via [facility], Patient Instructions/FollowUp: Please contineu to take your medications as written. Please follow up with your primary care doctor to follow up this hospital stay. Physician to follow Patient: Dr Hall Discharge Diet for Home: Cardiac Diet Patient Data-Allergies,Ht & Wt Patient Allergies: Coded Allergies: No Known Drug Allergies (Verified , 07/11/17) Height (Feet): 6 Height (Inches): 0.00 Weight (Pounds): 195 Weight (Ounces): 6.0 Home Health Need/Face to Face Date of Face to Face: Nov 27, 2019 Clinical Findings: Generalized weakness and fatigue I have seen Pt hvrg-ca-vzpo: Yes Discharged To: Home Diagnosis/Conditions: C diff, complete heart block with new pacemaker Patient is Homebound due to: Robert fall risk due to instabilty, Muscle weakness Homebound Status Due to the above stated illness, injury or surgical procedure (medical condition or diagnosis) and associated clinical findings, the patient is homebound because of his/her inability to leave home except with aid of a supportive device and/or person AND leaving the home requires a considerable and taxing effort or is medically contraindicated. Pt req the following assistanc: Aid of another person, Walker Home Health Nursing Orders Home Health Services Order: Nursing Services, Sr. Pricing Analyst-Evaluate & Treat, Physical Therapy-Evaluate & Treat Metz care and training, please arrange follow up with Dr Hall and with [facility] and neurosur[facility]. Home Health Infusion Therapy Line Start Date: Nov 23, 2019 Therapy Orders Therapy Orders: OT (must have SN or PT order), Physical Therapy Therapy Specific Orders: Eval assistive deivces, Teach enviro modificat ions/safety, Gait training, Increase strength/endurance Certify Stmt I certify that this patient is under my care and that I, a nurse practitioner or a physician; a executive chef assistant working with me, had a face to face encounter that - meets the physician face to face encounter requirements with this patient as dated. MARIO PARK MD Nov 27, 2019 11:45
--- NOTE | 2019-11-27 12:00 | Discharge Summary ---
Diagnosis/Chief Complaint Date of Admission Nov 23, 2019 at 19:40 Date of Discharge Discharge Date: Nov 27, 2019 Admission Diagnosis Sepsis Primary Care Fox Hall DO Discharge Diagnosis (1) CAD (coronary artery disease) Status: Chronic (2) Cardiac pacemaker Status: Acute (3) Hypokalemia Status: Acute (4) Hypothyroidism Status: Chronic (5) Severe sepsis Status: Acute (6) Person under investigation for COVID-19 Status: Acute (7) Altered mental status Status: Acute (8) Hypoxia Status: Acute (9) Iron deficiency anemia (10) Urinary retention Status: Acute (11) C. difficile diarrhea Status: Acute Discharge Summary Procedures/Consulations Dr Garcia- Pulyvan Brady- urology Discharge Physical Exam Allergies: Coded Allergies: No Known Drug Allergies (Verified , 07/11/17) Vitals & I&Os Vital Signs Date Time Temp Pulse Resp B/P (MAP) Pulse Ox O2 Delivery O2 Flow Rate FiO2 11/27/19 14:10 Room Air 11/27/19 11:47 37.0 94 18 136/63 (87) 95 11/26/19 12:00 1.00 11/23/19 23:51 21 General Appearance: No Apparent Distress, WD/WN Cardiovascular: Regular Rate, Rhythm, No Murmur Gastrointestinal: Normal Bowel Sounds, Non Tender, Soft Neurologic/Psychiatric: Alert, Oriented x3 Hospital Course Mr. Monroy was admitted to the hospital due to sepsis presumably from C. difficile colitis. He was treated with oral vancomycin and his diarrhea improved. His cultures were negative. He was tested for COVID and was negative. He had a recent pacemaker placement at [facility] in [place] and his pacemaker site did not appear to be infected. He was found to have urinary retention necessitating a Metz catheter. Dr. Brady with urology was consulted who recommended continuation of catheter until follow-up with him as an outpatient. Dr. Brady and I discussed continued therapy with patient and benefit of inpatient rehabilitation for continued strengthening. Patient declined. He elected to discharge home with home health and family support. I discussed return precautions with patient who expressed understanding. Labs (last 24 hrs) Microbiology 11/26/19 C. difficile GDH Antigen & Toxins - Final, Complete 11/26/19 Stool Culture - Final, Complete 11/23/19 MRSA Screen - Final, Complete MRSA not isolated 11/23/19 Urine Culture - Final, Complete NO GROWTH 11/23/19 Blood Culture - Preliminary, Resulted No growth Patient resulted labs reviewed. Pending Labs Discussion & Recommendations Discharge Planning: >30 minutes discharge planning Discharge Home Medications: Active Scripts Active Advair Hfa 115-21 Mcg Inhaler (Fluticasone/Salmeterol) 12 Gm Hfa.aer.ad 0 Puff IH RTBID Acidophilus-Pectin Capsule (Lactobacillus Acidophilus/Pect) 1 Each Capsule 2 Each PO TIDWM Finasteride 5 Mg Tablet 5 Mg PO DAILY Firvanq (Vancomycin HCl) 50 Mg/1 Ml Soln.recon 0 Mg PO Q6H Reported Senokot (Sennosides) 8.6 Mg Tablet 8.6 Mg PO BID PRN Aspirin EC (Aspirin) 81 Mg Tablet.dr 81 Mg PO DAILY Pantoprazole Sodium 40 Mg Tablet.dr 40 Mg PO HS Losartan Potassium 50 Mg Tablet 50 Mg PO DAILY Ferrous Sulfate 325 Mg Tablet 325 Mg PO DAILY Oxycodone IR (Oxycodone HCl) 5 Mg Tablet 5-10 Mg PO Q4H PRN Cyclobenzaprine HCl 10 Mg Tablet 10 Mg PO Q8H PRN Flomax (Tamsulosin HCl) 0.4 Mg Cap 0.4 Mg PO 1500 Preservision Areds Softgel (Vit A/C/E/Zinc/Co) 1 Cap Capsule 1 Cap PO DAILY Multivitamins (Multivitamin) 1 Each Tablet 1 Tab PO DAILY Pravastatin Sodium 20 Mg Tablet 20 Mg PO HS Hydrochlorothiazide 25 Mg Tablet 25 Mg PO DAILY Zetia (Ezetimibe) 10 Mg Tablet 10 Mg PO DAILY Amlodipine Besylate 5 Mg Tablet 5 Mg PO HS Levothyroxine Sodium 75 Mcg Tablet 75 Mcg PO DAILY Instructions to patient/family Please see electronic discharge instructions given to patient. Clinical Quality Measures DVT/VTE Risk/Contraindication: Risk Factor Score Per Nursin RFS Level Per Nursing on Admit: 4+=Very High Problem Qualifiers (1) CAD (coronary artery disease): Coronary Disease-Associated Artery/Lesion type: [place] artery [place] vs. transplanted heart: [place] heart Associated angina: without angina Qualified Codes: I25.10 - Atherosclerotic heart disease of [place] coronary artery without angina pectoris (2) Hypothyroidism: Hypothyroidism type: postoperative Qualified Codes: E89.0 - Postprocedural hypothyroidism (3) Altered mental status: Altered mental status type: delirium Qualified Codes: R41.0 - Disorientation, unspecified (4) Iron deficiency anemia: Iron deficiency anemia type: unspecified iron deficiency Qualified Codes: D50.9 - Iron deficiency anemia, unspecified MARIO PARK MD Nov 27, 2019 12:00
--- NOTE | 2019-11-27 12:05 | Progress Note - Urology ---
Progress Note-Urology Progress Notes/Assess & Plan Progress/Assessment & Plan TOLERATES FLOMAX AND PROSCAR WELL. POSSIBLE TRANSFER TO REHAB [facility] WILL HELP MANAGEMENT OF RETENTION Final Diagnosis URINE RETENTION ANAIS BARRIOS MD Nov 27, 2019 12:05
[2019-11-27] MEDS ORDERED: RELABEL FOR HOME USE MC SCH (12:15)
[2019-11-27] MEDS ORDERED: VANCOMYCIN 50 MG/ML ORAL SOLN 150 ML PO SCH (12:45)
== END 2019-11-27 14:12 | disposition home health service (06) | DRG 871 ==
LOC: EDUNIT# 17:05 → ER 17:07 → ICU 19:40 → 4TH 11-25 08:56
PROVIDERS: ADMIT Internal Medicine; ATTEND Internal Medicine
DX: A41.4 Sepsis due to anaerobes (principal); J96.01 Acute respiratory failure with hypoxia; J44.1 Chronic obstructive pulmonary disease with (acute) exacerbation; A04.72 Enterocolitis due to Clostridium difficile, not specified as recurrent; R65.20 Severe sepsis without septic shock; D64.9 Anemia, unspecified; E87.8 Other disorders of electrolyte and fluid balance, not elsewhere classified; N40.1 Benign prostatic hyperplasia with lower urinary tract symptoms; R33.8 Other retention of urine; N31.9 Neuromuscular dysfunction of bladder, unspecified; I25.10 Atherosclerotic heart disease of native coronary artery without angina pectoris; I25.2 Old myocardial infarction; I10 Essential (primary) hypertension; E78.00 Pure hypercholesterolemia, unspecified; G47.30 Sleep apnea, unspecified; K21.9 Gastro-esophageal reflux disease without esophagitis; I71.2 Thoracic aortic aneurysm, without rupture; K57.90 Diverticulosis of intestine, part unspecified, without perforation or abscess without bleeding; E89.0 Postprocedural hypothyroidism; J30.2 Other seasonal allergic rhinitis; R41.0 Disorientation, unspecified; D50.9 Iron deficiency anemia, unspecified; E87.6 Hypokalemia; S12.9XXD Fracture of neck, unspecified, subsequent encounter; E78.5 Hyperlipidemia, unspecified; R53.1 Weakness; Z20.828 Contact with and (suspected) exposure to other viral communicable diseases; Z95.0 Presence of cardiac pacemaker; Z95.1 Presence of aortocoronary bypass graft; Z87.891 Personal history of nicotine dependence; Z87.11 Personal history of peptic ulcer disease; Z87.19 Personal history of other diseases of the digestive system
CPT/HCPCS: 36415; 51702; 70450; 71045; 71275; 80053; 81000; 83605; 83615; 83735; 84100; 84145; 85007; 85025; 85027; 85610; 85652; 85730; 86141; 87015; 87040; 87045; 87046; 87081; 87088; 87324; 87449; 87635; 87899; 93005; 94640; 94760; 99291

== ENCOUNTER 2019-11-30 19:37 | Emergency (ER) | payer MEDICARE, OTHER ==
[~2019-11-30] VITALS: Ht 182 cm; Wt 81.6 kg
[~2019-11-30 19:37] MED LIST changes: +ASPI-983 PO; +CYCL10TA9 PO; +FERR325T18 PO; +FINA5TAB6 PO; +FLUT12AE4 IH; +LACT1CAP7 PO; +LOSA50TA63 PO; +OXYC5TAB96 PO; +PANT40TA3 PO; +SENN-36 PO; +TMSL.4C PO; +VANC50SO PO
[2019-11-30] MEDS ORDERED: LIDOCAINE UROJET 2% GEL 10 ML PKG TOP ONE (19:45)
[2019-11-30 20:12] VITALS: BP 149/75
[2019-11-30 20:31] LABS: BILIRUBIN,URINE NEGATIVE (NEGATIVE); CLARITY,URINE CLEAR; COLOR,URINE YELLOW; GLUCOSE, URINE (UA) NEGATIVE (NEGATIVE); KETONES,URINE NEGATIVE (NEGATIVE); LEUKOCYTE ESTERASE ,URINE NEGATIVE (NEGATIVE); NITRITE,URINE NEGATIVE (NEGATIVE); PROTEIN,URINE NEGATIVE (NEGATIVE)
--- NOTE | 2019-11-30 20:33 | ED GU-Female ---
General Chief Complaint: - Urinary Stated Complaint: UNABLE TO URINATE Source: patient Exam Limitations: no limitations History of Present Illness Date Seen by Provider: Nov 30, 2019 Time Seen by Provider: 20:29 Initial Comments Unable to urinate. Recently discharged from the hospital following CHF/AMI. He was discharged on the from this hospital. He went to Dr. Brady's office today and had his Metz catheter removed and was instructed to return tomorrow for recheck. He is unable to urinate and has the urge to do so. Timing/Duration: this morning Severity/Quality: moderate Radiation: none Activities at Onset: none Sexual [place] History: not active Allergies and Home Medications Allergies Coded Allergies: No Known Drug Allergies (Verified , 07/11/17) Home Medications Amlodipine Besylate 5 Mg Tablet, 5 MG PO HS, (Reported) Aspirin 81 Mg Tablet.dr, 81 MG PO DAILY, (Reported) Cyclobenzaprine HCl 10 Mg Tablet, 10 MG PO Q8H PRN for MUSCLE SPASMS, (Reported) Ezetimibe 10 Mg Tablet, 10 MG PO DAILY, (Reported) Ferrous Sulfate 325 Mg Tablet, 325 MG PO DAILY, (Reported) Finasteride 5 Mg Tablet, 5 MG PO DAILY Prescribed by: MARIO PARK on 11/27/19 1140 Fluticasone/Salmeterol 12 Gm Hfa.aer.ad, 0 PUFF IH RTBID Prescribed by: MARIO PARK on 11/27/19 1140 Hydrochlorothiazide 25 Mg Tablet, 25 MG PO DAILY, (Reported) Lactobacillus Acidophilus/Pect 1 Each Capsule, 2 EACH PO TIDWM Prescribed by: MARIO PARK on 11/27/19 1140 Levothyroxine Sodium 75 Mcg Tablet, 75 MCG PO DAILY, (Reported) Losartan Potassium 50 Mg Tablet, 50 MG PO DAILY, (Reported) Multivitamin 1 Each Tablet, 1 TAB PO DAILY, (Reported) Oxycodone HCl 5 Mg Tablet, 5-10 MG PO Q4H PRN for PAIN-SEVERE (8-10), (Reported) Pantoprazole Sodium 40 Mg Tablet.dr, 40 MG PO HS, (Reported) Pravastatin Sodium 20 Mg Tablet, 20 MG PO HS, (Reported) Sennosides 8.6 Mg Tablet, 8.6 MG PO BID PRN for CONSTIPATION-5TH LINE, (Reported) Tamsulosin HCl 0.4 Mg Cap, 0.4 MG PO 1500, (Reported) Vancomycin HCl 50 Mg/1 Ml Soln.recon, 0 MG PO Q6H Prescribed by: MARIO PARK on 11/27/19 1140 Vit A/C/E/Zinc/Co 1 Cap Capsule, 1 CAP PO DAILY, (Reported) Patient Home Medication List Home Medication List Reviewed: Yes Review of Systems Review of Systems Constitutional: see HPI EENTM: see HPI Respiratory: no symptoms reported Cardiovascular: no symptoms reported Genitourinary: see HPI Musculoskeletal: no symptoms reported Skin: no symptoms reported Psychiatric/Neurological: No Symptoms Reported Endocrine: No Symptoms Reported Past Wrucljv-Fukvyv-Qvpdes Hx Patient Social History Alcohol Beverage of Choice: Wine Type Used: Cigarettes Former Smoker, Quit: Apr 01, 1994 2nd Hand Smoke Exposure: No Recent Foreign Travel: No Contact w/Someone Who Travel: No Recent Hopitalizations: Yes (heart cath) Immunizations Up To Date Tetanus Booster (TDap): Unknown PED Vaccines UTD: No Date of Pneumonia Vaccine: May 02, 2018 Date of Influenza Vaccine: Jan 14, 2017 Seasonal Allergies Seasonal Allergies: Yes Past Medical History Surgeries: Yes (SEE BELOW) Abdominal, Cardiac, CABG, Gallbladder, Thyroidectomy Respiratory: Yes Sleep Apnea Currently Using CPAP: Yes (NOT EVERY NIGHT) Cardiac: Yes (3 VESSEL CABG 1993; 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 ) Endocrine: Yes (RIGHT LOBE OF THYROID REMOVED/BENIGN DISEASE ) Hypothyroidsim HEENT: No Loss of Vision: Bilateral Hearing Impairment: Denies Cancer: No Psychosocial: No Integumentary: No 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) Adverse Reaction/Blood Tranf: No (HAS HAD BLOOD WITH NO REACTION) Family Medical History Alcoholism 19 FATHER Arthritis 19 MOTHER Asthma 19 MOTHER Hypertension 19 FATHER Kidney disease 19 FATHER Visual disorder G8 BROTHER G8 SISTER -PACEMAKER PLACED 11/21/[facility] BY DR. CONN Physical Exam Vital Signs Capillary Refill : Height, Weight, BMI Height: 6'0.00" Weight: 195lbs. 6.0oz. 88.641697pb; 21.00 BMI Method:Stated General Appearance: WD/WN, no apparent distress, other (alert and oriented no distress states that he is feeling well, much better than a few days ago upon discharge. He did a bladder scan which shows 483 mL in the bladder. There is some edema of the penile shaft. However this does not preclude visualization of the urethral meatus.) Respiratory: no respiratory distress, no accessory muscle use Gastrointestinal: normal bowel sounds, soft, tenderness (Suprapubic tenderness which resolved after insertion of catheter) Extremities: normal range of motion, non-tender, other (pedal edema 2+ bilaterally) Neurologic/Psychiatric: alert, normal mood/affect, oriented x 3 Skin: normal color, warm/dry Progress/Results/Core Measures Suspected Sepsis SIRS Temperature: Pulse: Respiratory Rate: Blood Pressure / Mean: Results/Orders Lab Results Laboratory Tests Test 11/30/19 20:20 Range/Units My Orders Orders - PUH OSORIO APRN Bladder Scan (11/30/19 19:39) Lidocaine 2% (Urojet) (Xylocaine Urojet) (11/30/19 19:45) Cbc With Automated Diff (11/30/19 19:39) Basic Metabolic Panel (11/30/19 19:39) Ua Culture If Indicated (11/30/19 19:39) Metz Cath (11/30/19 19:39) Medications Given in ED Current Medications Medications Dose Ordered Sig/Tejas Route Start Time Stop Time Status Last Admin Dose Admin Lidocaine HCl 10 ml ONCE ONCE TOP 11/30/19 19:45 11/30/19 19:46 DC 11/30/19 20:15 10 ML Vital Signs/I&O Capillary Refill : Departure Communication (Admissions) I spoke with Dr. Brady. He'll see the patient tomorrow. Impression Primary Impression: Urinary retention Disposition: HOME, SELF-CARE Condition: Stable Departure-Patient Inst. Decision time for Depature: 20:32 Referrals: ANH CASTAÑEDA DO (PCP/Family) Primary Care Physician Patient Instructions: Urinary Retention (DC) Add. Discharge Instructions: 1. Keep your appointment with Dr. Brady tomorrow. Return to ER for any concerns. All discharge instructions reviewed with patient and/or family. Voiced un derstanding. PHU OSORIO SPOOLER RUBBER STRAND Nov 30, 2019 20:33
[2019-11-30 20:38] LABS: BACTERIA,URINE TRACE /HPF; RBC,URINE 0-2 /HPF; SQUAMOUS EPITHELIAL CELL,UR RARE /HPF; WBC,URINE 0-2 /HPF
== END 2019-11-30 20:41 | disposition home or self-care (01) ==
LOC: EDUNIT# 19:37 → ER 19:38
DX: R33.9 Retention of urine, unspecified (principal); E78.00 Pure hypercholesterolemia, unspecified; I10 Essential (primary) hypertension; E03.9 Hypothyroidism, unspecified; I25.10 Atherosclerotic heart disease of native coronary artery without angina pectoris; K21.9 Gastro-esophageal reflux disease without esophagitis; Z95.1 Presence of aortocoronary bypass graft; Z79.890 Hormone replacement therapy; Z87.891 Personal history of nicotine dependence; Z82.49 Family history of ischemic heart disease and other diseases of the circulatory system; Z79.82 Long term (current) use of aspirin
CPT/HCPCS: 51702; 81000

== ENCOUNTER → 2020-02-15 | Outpatient (CLI) | payer MEDICARE, OTHER ==
[~2020-02-15] MED LIST changes: +AMLO-250 PO; -AMLO5TAB9 PO; +ASPI-1238 PO; -ASPI-983 PO; +OXC5T PO; -OXYC5TAB96 PO; -PANT40TA3 PO; +PANT40TA52 PO
--- NOTE | 2020-02-15 15:15 | Diagnostic Imaging Report ---
INDICATION: History of cervical spine fracture. COMPARISON: CT cervical spine dated 10/28/2019. FINDINGS: Frontal and lateral radiographic views of the cervical spine were obtained. Again identified is a longitudinally oriented fracture of the anterior ring of C2. There is persistent moderate anterior subluxation of C2 fracture fragment on C3 vertebral body. This measures approximately 9 mm. Given the differences in modality, anterior displacement does appear stable. Evaluation of static alignment also shows slight grade 1 anterolisthesis at C4-C5 or C6-C7. There is no evidence of jumped facets. Moderate multilevel degenerative changes are again identified and consist of intervertebral disc height loss with multilevel facet arthropathy. IMPRESSION: 1. Redemonstration C2 fracture with moderate anterior displacement of the anterior C2 fracture fragment. Further characterization with repeat CT of the cervical spine would be of benefit for complete characterization in regards to stability of the fracture fragments and interval healing. Dictated by: Dictated on workstation # [id number]
== END ==
LOC: RAD 13:46
DX: Z87.81 Personal history of (healed) traumatic fracture (principal)
CPT/HCPCS: 72040

== ENCOUNTER → 2020-03-07 | Outpatient (CLI) | payer MEDICARE, OTHER ==
--- NOTE | 2020-03-07 09:01 | Diagnostic Imaging Report ---
PROCEDURE: CT cervical spine without contrast. TECHNIQUE: Multiple contiguous axial images were obtained through the cervical spine without the use of intravenous contrast. Sagittal and coronal reformations were then performed. Auto Exposure Controls were utilized during the CT exam to meet ALARA standards for radiation dose reduction. INDICATION: Cervical spine fracture September 2019, followup. CORRELATION STUDY: 10/28/2019 FINDINGS: Previous imaging demonstrated fracture to the right of midline anterior arch of C1. Mildly comminuted and distracted fractures involving the C2 vertebral body including the right C2 lateral mass, odontoid process and vertebral body along with right C3 transverse process fracture. At followup, there is incomplete healing with persistent visualization of the fracture line of the anterior C1 arch sets of the right of midline. Fracture line is actually better visualized at followup assessment. Margins appear to be fairly well sclerotic. Overall alignment generally stable. The obliquely oriented fracture of the C2 vertebral body and posterior odontoid persists. Portions of the inferior fracture line do appear to be perhaps partially fused and blurred. The remainder of the fracture lines however remain patent. The general alignment overall appears generally stable with the body displaced proximally 1 cm anterior to the C3 vertebral body. The fracture lines extending through the right aspect of the lateral masses have become somewhat blurred and generally healed. The left C1 facet is anterior in position to the C2 lateral mass with offset of approximately 7 mm. Spinal canal is somewhat asymmetrically narrowed at C1-C2 articulation posteriorly with anterior subluxation of the posterior C1 ring lesion to the posterior C2 elements. However, canal remains at approximately 1 cm. There is bony fusion across the left C2-C3 facets. The previously identified fractures of the right C3 transverse process appears to be healed and is not visualized. Slight anterolisthesis C5 on C6. Diffuse hypertrophic facet arthropathy is present at left greater than right. IMPRESSION: 1. Incomplete healing of the nonspecific fracture of the anterior arch of C1, right of midline. 2. Partial but incomplete healing of the multi-comminuted and distracted fracture involving the C2 vertebral body, posterior aspect odontoid process. The overall alignment is generally stable. The previously noted right C2 vertebral body lateral mass fractures also appear to be partially healed offset of C1 on C2, C2 on C3 overall unchanged. 3. The previously noted right C3 transverse process fracture is not visualized, appears to have healed. Dictated by: Dictated on workstation # [id number]
== END ==
LOC: RAD 08:15
PROVIDERS: ATTEND Neurological Surgery
DX: S12.110G Anterior displaced Type II dens fracture, subsequent encounter for fracture with delayed healing (principal); X58.XXXD Exposure to other specified factors, subsequent encounter
CPT/HCPCS: 72125